=== PATIENT | male | born 1970 | race Caucasian/White ===

== ENCOUNTER 2022-05-27 17:37 | Inpatient (IN) | payer SELFPAY ==
[2022-05-27] VITALS (68 sets, daily range): BP systolic 100–138; BP diastolic 57–87; PULSE 94–110; RESP 16–22; TEMP 36.6; O2SAT 82–99; BMI 28.7
--- NOTE | 2022-05-27 18:10 | ED_ITS ---
Note pulled up in error, not my note. HPI - Weakness General Chief complaint: Weakness Stated complaint: Weakness, edema Time Seen by Provider: 05/27/22 17:59 Source: EMS Mode of arrival: EMS History of Present Illness HPI Narrative: 51-year-old male smoker and heavy drinker, sometimes as much as 0.5 gal of vodka daily presents with a chief complaint of swelling in his bilateral lower extremities that has become profoundly worse over the past week or so though has been present in some level chronically. Additionally he complains of a swollen abdomen which is becoming tender. He denies any fever or chills. He has had nausea and vomiting for the past 4 days. He denies any diarrhea, constipation or urinary issues. He states that he had been seen and evaluated at an outside facility earlier in the week and was found to have low potassium and was given potassium supplementation which she has been trying to take. He states that though he has been a drinker for many years and has gone through withdrawals even seizures in the past he is never had a swollen abdomen, has never had liver failure or a paracentesis. Related Data Home Medications Medication Instructions Recorded Confirmed No Known Home Medications 05/28/22 05/28/22 Allergies Allergy/AdvReac Type Severity Reaction Status Date / Time No Known Drug Allergies Allergy Verified 05/27/22 19:25 Review of Systems Review of Systems Narrative: GENERAL: Denies chills, fatigue, malaise, fever, sweats. HEENT: Denies sinus pain, ear pain, sore throat, difficulty swallowing, dizziness. RESPIRATORY: See HPI CARDIOVASCULAR: Denies chest pain, palpitations, orthopnea, edema, GASTROINTESTINAL see HPI : Denies dysuria, frequency, incontinence, hematuria, urinary retention. MUSCULOSKELETAL: denies weakness, joint pain, or bony pain SKIN: Denies rash, skin lesions, or other NEUROLOGIC: Denies weakness, headache, numbness, change in speech, confusion, se izures, incoordination. PSYCHIATRIC: No concerning psychosocial issues. 12 point review of systems is negative except for those stated above Patient History Medical History (Updated 05/28/22 @ 06:35 by Jin Romeo DO) Alcohol withdrawal Chronic pain syndrome Spinal stenosis TBI (traumatic brain injury) Family History (Updated 05/28/22 @ 01:59 by ASIM Best) Mother Brain tumor Father Chronic alcohol use Hx of liver transplant Staphylococcal pneumonia Social History household members: none Smoking Status: Current some day smoker alcohol intake: current Smoking Status: Current some day smoker tobacco type: cigarettes alcohol intake frequency: 3 or more drinks per day Alcohol type: hard liquor Substance Use Type: marijuana Exam Narrative Exam Narrative: GENERAL: [51] year old patient appears older than stated age. Well-developed patient, in mild distress. HEAD: Atraumatic. Normocephalic. EYES: Pupils equal round and reactive. Extraocular motions intact. No scleral icterus. No injection or drainage. ENT: Nose without bleeding, purulent drainage. Throat without erythema, tonsillar hypertrophy or exudate. Airway patent. NECK: Trachea midline. Non tender CARDIOVASCULAR: Regular rate and rhythm without murmurs, gallops, or rubs. RESPIRATORY: Clear to auscultation. Breath sounds equal bilaterally. No wheezes, rales, or rhonchi. GASTROINTESTINAL: Distended, nontender, distant bowel sounds, mild fluid wave EXTREMITIES: 2+ pitting edema bilateral lower extremities, no erythema or warmth BACK: Nontender without deformity or crepitance. No flank tenderness. NEURO: AOx3. SKIN: No rash or erythema of visible areas Initial Vital Signs Initial Vital Signs: Vital Signs Temperature 97.8 F 05/27/22 17:50 Pulse Rate 99 H 05/27/22 17:50 Respiratory Rate 20 05/27/22 17:50 Blood Pressure 122/73 05/27/22 17:50 Pulse Oximetry 99 05/27/22 17:50 Oxygen Delivery Method Room Air 05/27/22 17:50 Procedures Paracentesis Time Out Performed: Yes Indication: possible spontaneous bacterial peritonitis Procedure: diagnostic paracentesis Location: LLQ Local Anesthetic: lidocaine 2% Amount of anesthesia used (mL): 3 Bedside Ultrasound Used: yes, Ascites confirmed and location marked Preparation: sterile prep and drape Fluid: clear and sent to lab for analysis Size of Needle Used: 5 Post Procedure Exam: awake, alert, normal BP, normal HR and normal SpO2 Patient Tolerated Procedure: Well Complications: none Additional Comments: 5French Course Course Course Narrative: 51-year-old male with chronic alcohol abuse presents with increasing swelling of his lower extremities and swelling of his abdomen. He is found to have what sounds like new onset ascites in the absence of findings consistent with SBP. Is labs would suggest a relative anemia though not to the point of needing transfusion and hypokalemia which had been replaced with oral supplementation and when orders for Lasix were placed a K rider was ordered. Paracentesis with about 3-1/2 L results and no obvious abnormal findings. Patient does have less abdominal discomfort but was briefly hypoxemic requiring 2 L by nasal cannula. Patient requires hospitalization for ongoing evaluation and stabilization of his condition. Hospitalist is happy to accept patient on her service. Primary historian is patient Orders Ordered: Acetaminophen (Acetaminophen 325 Mg Tablet) 650 mg PO Q6H PRN PRN Reason: Fever/Mild Pain (1-3) Folic Acid (Folic Acid 1 Mg Tablet) 1 mg PO DAILY [facility] Hydromorphone HCl (Hydromorphone 0.5 Mg Inj) 0.5 mg IV Q2H PRN PRN Reason: Pain, Severe (7-10) Potassium Chloride 40 meq/ (Sodium Chloride) 1,020 mls @ 125 mls/hr IV CONT [facility] Sodium Chloride (Normal Saline 0.9%) 1,000 mls @ 100 mls/hr IV CONT [facility] Last Admin: 05/28/22 01:23 Dose: 125 mls/hr Documented By: CT Piperacillin Sod/Tazobactam (Sod 3.375 gm/ Sodium Chloride) 100 mls @ 25 mls/hr IV Q8H [facility] Last Admin: 05/28/22 03:51 Dose: 25 mls/hr Documented By: CT Lorazepam (Lorazepam 2 Mg/Ml Inj) 0 mg IV CIWAPRN PRN; Protocol PRN Reason: Alcohol Withdrawal Multivitamins (Multivitamin 1 Tablet) 1 tab PO DAILY [facility] Naloxone HCl (Naloxone 0.4 Mg/Ml Vial) 0.2 mg IV Q2MIN PRN PRN Reason: Opiate Reversal Nicotine (Nicotine 14 Patch) 14 mg TOP DAILY [facility] Last Admin: 05/28/22 06:31 Dose: 14 mg Documented By: CT Ondansetron HCl (Ondansetron 4 Mg Odt) 4 mg PO NOW PRN PRN Reason: Nausea And Vomiting Ondansetron HCl (Ondansetron 4 Mg/2 Ml Inj) 4 mg IV NOW PRN PRN Reason: Nausea And Vomiting Ondansetron HCl (Ondansetron 4 Mg/2 Ml Inj) 4 mg IV Q6HR PRN PRN Reason: Nausea And Vomiting Oxycodone HCl (Oxycodone Ir 5 Mg Tablet) 5 mg PO Q3H PRN PRN Reason: Pain, Moderate (4-6) Last Admin: 05/28/22 01:58 Dose: 5 mg Documented By: CT Oxycodone HCl (Oxycodone Ir 10 Mg Tablet) 10 mg PO Q3H PRN PRN Reason: Pain, Severe (7-10) Last Admin: 05/28/22 05:54 Dose: 10 mg Documented By: CT Thiamine HCl (Thiamine 100 Mg Tablet) 100 mg PO DAILY [facility] Stop: 05/30/22 09:01 Last Admin: 05/28/22 01:23 Dose: 100 mg Documented By: CT Discontinued Medications Acetaminophen (Acetaminophen 325 Mg Tablet) 650 mg PO NOW ONE Stop: 05/28/22 05:03 Last Admin: 05/28/22 06:08 Dose: 650 mg Documented By: CT Furosemide (Furosemide 40 Mg/4 Ml Vial) 40 mg IV NOW ONE Stop: 05/27/22 19:49 Last Admin: 05/27/22 20:28 Dose: 40 mg Documented By: GAR[place] Furosemide (Furosemide 40 Mg/4 Ml Vial) 40 mg IV NOW ONE Stop: 05/27/22 21:03 Last Admin: 05/27/22 21:28 Dose: 40 mg Documented By: RB Furosemide (Furosemide 20 Mg/2 Ml Vial) 20 mg IV NOW ONE Stop: 05/28/22 05:02 Ceftriaxone Sodium 2,000 mg/ (Sodium Chloride) 100 mls @ 200 mls/hr IV NOW ONE Stop: 05/27/22 19:18 Last Infusion: 05/27/22 20:25 Dose: 0 mls/hr Documented By: Admin: 05/27/22 19:27 Dose: 200 mls/hr Documented By: RB POTASSIUM CHLORIDE IN WATER (Potassium Cl 10 Meq/100 Ml Sylvia) 10 meq in 100 mls @ 100 mls/hr IV Q1H [place] Stop: 05/28/22 01:14 Last Infusion: 05/28/22 02:30 Dose: 0 mls/hr Documented By: Admin: 05/28/22 01:23 Dose: 100 mls/hr Documented By: Infusion: 05/28/22 01:23 Dose: 0 mls/hr Documented By: Infusion: 05/28/22 00:15 Dose: 0 mls/hr Documented By: Admin: 05/28/22 00:01 Dose: 100 mls/hr Documented By: Infusion: 05/28/22 00:01 Dose: 0 mls/hr Documented By: Admin: 05/27/22 22:58 Dose: 100 mls/hr Documented By: Infusion: 05/27/22 22:57 Dose: 0 mls/hr Documented By: Admin: 05/27/22 21:58 Dose: 100 mls/hr Documented By: RB Dextrose/Sodium Chloride (Dextrose 5%-0.9% Ns) 1,000 mls @ 100 mls/hr IV CONT [facility] Last Admin: 05/27/22 23:43 Dose: Not Given Documented By: RB Nicotine (Nicotine 14 Patch) 14 mg TOP DAILY [facility] Potassium Chloride (Potassium Chloride 20 Meq/15 Ml Udc) 40 meq PO NOW ONE Stop: 05/27/22 19:18 Last Admin: 05/27/22 19:28 Dose: 40 meq Documented By: RB Potassium Chloride (Potassium Chloride 20 Meq Tab) 40 meq PO NOW ONE Stop: 05/27/22 19:18 Last Admin: 05/27/22 19:28 Dose: 40 meq Documented By: RB Potassium Chloride (Potassium Chloride 20 Meq Tab) 40 meq PO NOW ONE Stop: 05/28/22 02:26 Last Admin: 05/28/22 04:10 Dose: Not Given Documented By: RAYMUNDO Potassium Chloride (Potassium Chloride 20 Meq Tab) 40 meq PO NOW ONE Stop: 05/28/22 04:16 Last Admin: 05/28/22 04:26 Dose: 40 meq Documented By: CT Vital Signs Vital signs: Vital Signs - 8 hr 05/27/22 22:35 05/27/22 22:35 05/27/22 22:40 Pulse Rate 100 H Respiratory Rate 19 Blood Pressure 102/59 L 101/59 L Pulse Oximetry 94 Oxygen Delivery Method Nasal Cannula Oxygen Flow Rate 2 05/27/22 22:40 05/27/22 22:45 05/27/22 22:45 Pulse Rate 99 H 109 H Respiratory Rate 18 Blood Pressure 107/66 Pulse Oximetry 94 94 Oxygen Delivery Method Nasal Cannula Oxygen Flow Rate 2 05/27/22 22:50 05/27/22 22:50 05/27/22 22:55 Pulse Rate 107 H Respiratory Rate Blood Pressure 105/65 104/60 Pulse Oximetry 94 Oxygen Delivery Method Oxygen Flow Rate 05/27/22 22:55 05/27/22 23:00 05/27/22 23:00 Pulse Rate 102 H 101 H Respiratory Rate 22 18 Blood Pressure 104/63 Pulse Oximetry 93 93 Oxygen Delivery Method Oxygen Flow Rate 05/27/22 23:05 05/27/22 23:05 05/27/22 23:10 Pulse Rate 100 H Respiratory Rate 16 Blood Pressure 105/61 105/63 Pulse Oximetry 94 Oxygen Delivery Method Oxygen Flow Rate 05/27/22 23:10 05/27/22 23:15 05/27/22 23:15 Pulse Rate 101 H 101 H Respiratory Rate 21 20 Blood Pressure 107/62 Pulse Oximetry 94 93 Oxygen Delivery Method Oxygen Flow Rate MDM - Weakness Lab Data 05/28/22 04:34 05/28/22 04:34 Labs: Lab Results 05/27/22 05/27/22 05/27/22 Range/Units 18:25 18:25 18:25 WBC 16.4 H (4.5-11.0) X10^3/uL RBC 1.83 L (4.5-5.9) X10^6/uL Hgb 7.1 L (13.5-17.5) g/dL Hct 21.8 L (41-53) % MCV 118.8 H (80-100) fL MCH 38.6 H (26-34) PG MCHC 32.5 (30-36) % RDW 28.5 H (11.6-14.8) % Plt Count 385 (150-400) X10^3/uL Neut % (Auto) 79.4 H (50-75) % Lymph % (Auto) 10.8 L (25-40) % [place] % (Auto) 8.2 (3-14) % Eos % (Auto) 0.3 L (2-4) % Baso % (Auto) 1.3 (0-2) % Neut # (Auto) 91449 H (4524-3501) /uL Lymph # (Auto) 1800 (0796-0714) /uL [place] # (Auto) 1300 H (0-900) /uL Eos # (Auto) 0 (0-450) /uL Baso # (Auto) 200 H (0-100) /uL RBC Morphology See below Polychromasia 1+ H Anisocytosis 2+ H Macrocytosis 2+ H PT 12.0 (10.1-12.7) SECONDS INR 1.0 (0.9-1.3) APTT 28 (26-36) SECONDS Sodium 136 L (137-145) mmol/L Potassium 2.4 L* (3.4-5.1) mmol/L Chloride 96 L (98-107) mmol/L Carbon Dioxide 37 H (22-32) mmol/L BUN 7 L (9-20) mg/dL Creatinine 0.56 L (0.66-1.25) mg/dL Estimated GFR > 60 (>60) mL/min BUN/Creatinine Ratio 12.5 (6-22) Glucose 96 (70-100) mg/dL Calcium 7.4 L (8.4-10.2) mg/dL Total Bilirubin 2.5 H (0.2-1.3) mg/dL AST 90 H (17-59) IU/L ALT 39 (<50) IU/L Alkaline Phosphatase 336 H (38-126) U/L Ammonia (9-30) umol/L Total Protein 6.7 (6.3-8.2) g/dL Albumin 2.9 L (3.5-5.0) g/dL Globulin 3.8 (1.7-4.1) g/dL Albumin/Globulin Ratio 0.8 L (1.0-2.8) Lipase 208 (23-300) U/L Fluid Color Fluid Appearance Fluid RBC /uL Fld Tot Nucleated Cell /uL Fluid Polynuclear WBCs % Fluid Mononuclear WBCs % Fluid Eosinophils Fluid Other Cells Body Fluid Clot Ethyl Alcohol ( - 10) mg/dL SARS-CoV-2 (PCR) (Negative) Blood Type Antibody Screen Crossmatch 05/27/22 05/27/22 05/27/22 Range/Units 18:25 18:25 18:25 WBC (4.5-11.0) X10^3/uL RBC (4.5-5.9) X10^6/uL Hgb (13.5-17.5) g/dL Hct (41-53) % MCV (80-100) fL MCH (26-34) PG MCHC (30-36) % RDW (11.6-14.8) % Plt Count (150-400) X10^3/uL Neut % (Auto) (50-75) % Lymph % (Auto) (25-40) % [place] % (Auto) (3-14) % Eos % (Auto) (2-4) % Baso % (Auto) (0-2) % Neut # (Auto) (9006-6675) /uL Lymph # (Auto) (7098-7243) /uL [place] # (Auto) (0-900) /uL Eos # (Auto) (0-450) /uL Baso # (Auto) (0-100) /uL RBC Morphology Polychromasia Anisocytosis Macrocytosis PT (10.1-12.7) SECONDS INR (0.9-1.3) APTT (26-36) SECONDS Sodium (137-145) mmol/L Potassium (3.4-5.1) mmol/L Chloride (98-107) mmol/L Carbon Dioxide (22-32) mmol/L BUN (9-20) mg/dL Creatinine (0.66-1.25) mg/dL Estimated GFR (>60) mL/min BUN/Creatinine Ratio (6-22) Glucose (70-100) mg/dL Calcium (8.4-10.2) mg/dL Total Bilirubin (0.2-1.3) mg/dL AST (17-59) IU/L ALT (<50) IU/L Alkaline Phosphatase (38-126) U/L Ammonia < 9 L (9-30) umol/L Total Protein (6.3-8.2) g/dL Albumin (3.5-5.0) g/dL Globulin (1.7-4.1) g/dL Albumin/Globulin Ratio (1.0-2.8) Lipase (23-300) U/L Fluid Color Fluid Appearance Fluid RBC /uL Fld Tot Nucleated Cell /uL Fluid Polynuclear WBCs % Fluid Mononuclear WBCs % Fluid Eosinophils Fluid Other Cells Body Fluid Clot Ethyl Alcohol < 10 ( - 10) mg/dL SARS-CoV-2 (PCR) Negative (Negative) Blood Type Antibody Screen Crossmatch 05/27/22 05/27/22 Range/Units 19:40 20:38 WBC (4.5-11.0) X10^3/uL RBC (4.5-5.9) X10^6/uL Hgb (13.5-17.5) g/dL Hct (41-53) % MCV (80-100) fL MCH (26-34) PG MCHC (30-36) % RDW (11.6-14.8) % Plt Count (150-400) X10^3/uL Neut % (Auto) (50-75) % Lymph % (Auto) (25-40) % [place] % (Auto) (3-14) % Eos % (Auto) (2-4) % Baso % (Auto) (0-2) % Neut # (Auto) (3062-7659) /uL Lymph # (Auto) (4508-6410) /uL [place] # (Auto) (0-900) /uL Eos # (Auto) (0-450) /uL Baso # (Auto) (0-100) /uL RBC Morphology Polychromasia Anisocytosis Macrocytosis PT (10.1-12.7) SECONDS INR (0.9-1.3) APTT (26-36) SECONDS Sodium (137-145) mmol/L Potassium (3.4-5.1) mmol/L Chloride (98-107) mmol/L Carbon Dioxide (22-32) mmol/L BUN (9-20) mg/dL Creatinine (0.66-1.25) mg/dL Estimated GFR (>60) mL/min BUN/Creatinine Ratio (6-22) Glucose (70-100) mg/dL Calcium (8.4-10.2) mg/dL Total Bilirubin (0.2-1.3) mg/dL AST (17-59) IU/L ALT (<50) IU/L Alkaline Phosphatase (38-126) U/L Ammonia (9-30) umol/L Total Protein (6.3-8.2) g/dL Albumin (3.5-5.0) g/dL Globulin (1.7-4.1) g/dL Albumin/Globulin Ratio (1.0-2.8) Lipase (23-300) U/L Fluid Color Yellow Fluid Appearance Slightly cloudy Fluid RBC 88 /uL Fld Tot Nucleated Cell 43 /uL Fluid Polynuclear WBCs 1 % Fluid Mononuclear WBCs 99 % Fluid Eosinophils Not Reportable Fluid Other Cells Not Reportable Body Fluid Clot No clots present Ethyl Alcohol ( - 10) mg/dL SARS-CoV-2 (PCR) (Negative) Blood Type A Positive Antibody Screen Negative Crossmatch See Detail Urine Dip Bedside Urine Glucose Negative Bedside Urine Bilirubin - Negative Bedside Urine Ketone - Negative Urine Specific [place] 1.010 Bedside Urine Occult Blood - Negative Bedside Urine pH 8.0 Bedside Urine Protein - Negative Bedside Urine Urobilinogen 1+ 2mg Bedside Urine Nitrite - Negative Bedside Urine Leukocytes - Negative Esterase Discharge Plan Departure Patient Disposition: Admitted As Inpatient Clinical Impression: Ascites due to alcoholic hepatitis, Anemia, Acute hypokalemia Admit Date/Time: 05/27/22 23:15 Admit Provider: Cara Reed
[2022-05-27 18:37] LABS: Add Manual Diff / Slide Review NO; Basophils Absolute Auto 200 /uL (0-100); Basophils Percent Auto 1.3 % (0-2); Eosinophils Absolute Auto 0 /uL (0-450); Eosinophils Percent Auto 0.3 % (2-4); Hematocrit 21.8 % (41-53); Hemoglobin 7.1 g/dL (13.5-17.5); Lymphocytes Absolute Auto 1800 /uL (1100-4500); Lymphocytes Percent Auto 10.8 % (25-40); Mean Corpuscular HGB Conc 32.5 % (30-36); Mean Corpuscular Hemoglobin 38.6 PG (26-34); Mean Corpuscular Volume 118.8 fL (80-100); Monocytes Absolute Auto 1300 /uL (0-900); Monocytes Percent Auto 8.2 % (3-14); Neutrophils Absolute Auto 13000 /uL (1500-7000); Neutrophils Percent Auto 79.4 % (50-75); Platelet Count 385 X10^3/uL (150-400); Red Blood Cell Count 1.83 X10^6/uL (4.5-5.9); Red Cell Distribution Width 28.5 % (11.6-14.8); White Blood Cell Count 16.4 X10^3/uL (4.5-11.0)
--- NOTE | 2022-05-27 18:43 | DI.US.S_ITS ---
PROCEDURE: US ABDOMEN LIMITED INDICATIONS: RHYS FOR PARACENTESIS TECHNIQUE: Real-time focused scanning was performed of the abdomen, with image documentation. COMPARISON: None. FINDINGS: Moderate amount of ascites is present. Appropriate cutaneous site for percutaneous access to the ascites was marked in the left lower quadrant. IMPRESSION: Moderate ascites. Dictated by: Va Carney M.D. on 05/27/2022 at 19:04 Approved by: Va Carney M.D. on 05/27/2022 at 19:05
[2022-05-27 18:45] LABS: PTT Partial Thromboplastin Tim 28 SECONDS (26-36)
[2022-05-27 18:46] LABS: Alanine Aminotransferase 39 IU/L (<50); Albumin 2.9 g/dL (3.5-5.0); Albumin Globulin Ratio 0.8 (1.0-2.8); Alkaline Phosphatase 336 U/L (38-126); Aspartate Aminotransferase 90 IU/L (17-59); BUN Creatinine Ratio 12.5 (6-22); Bilirubin Total 2.5 mg/dL (0.2-1.3); Blood Urea Nitrogen 7 mg/dL (9-20); Calcium 7.4 mg/dL (8.4-10.2); Carbon Dioxide 37 mmol/L (22-32); Chloride 96 mmol/L (98-107); Estimated Glomerular Filt Rate > 60 mL/min (>60); Globulin 3.8 g/dL (1.7-4.1); Glucose 96 mg/dL (70-100); HEMOLYSIS < 15 (0-50); Lipase 208 U/L (23-300); Sodium 136 mmol/L (137-145); Total Protein 6.7 g/dL (6.3-8.2)
[2022-05-27 18:49] LABS: Ammonia (NH3) < 9 umol/L (9-30); Ethanol (ETOH) < 10 mg/dL
[2022-05-27 19:15] LABS: COVID19 -Nasal RAPID Negative (Negative)
[2022-05-27 19:16] LABS: Potassium 2.4 mmol/L (3.4-5.1)
[2022-05-27 19:24] LABS: Macrocytosis 2+
[2022-05-27 19:25] LABS: Polychromasia 1+
[2022-05-27 19:26] LABS: Anisocytosis 2+
[2022-05-27] MEDS: cefTRIAXone 2,000 MG in SODIUM CHLORIDE 0.9% 100 ML 200 MG IV (19:27)
[2022-05-27] MEDS: POTASSIUM CHLORIDE 20 MEQ TAB 40 MEQ PO (19:28)
[2022-05-27] MEDS: POTASSIUM CHLORIDE 20 MEQ/15 ML UDC 40 MEQ PO (19:28)
--- NOTE | 2022-05-27 19:48 | DI.CT.S_ITS ---
PROCEDURE: CT ABDOMEN PELVIS W CON INDICATIONS: new onset liver failure TECHNIQUE: After the administration of IV contrast, axial sections were acquired from the lung bases to the pubic symphysis. Coronal and sagittal reformats were performed. For radiation dose reduction, the following was used: automated exposure control, adjustment of mA and/or kV according to patient size. COMPARISON: [facility], , US ABDOMEN LIMITED, 05/27/2022, 18:54. FINDINGS: Image quality: Excellent. Lung bases: There are small bilateral pleural effusions, right greater than left, with associated compressive atelectasis. Atelectasis also demonstrated inferiorly within the right middle lobe. Heart: Heart is normal in size. ABDOMEN: Liver: The liver is lobulated in contour suggestive of cirrhosis. An ill-defined wedge-shaped region of hypodensity is demonstrated within the posterior right hepatic lobe involving segments 6 and 7 along the inferior vena cava. There is also a lobulated region of hypodensity in the liver along the gallbladder fossa. A few small clustered oval hypodensities are demonstrated within segment 6 of the posterior right hepatic lobe measuring up to 1.2 cm. Gallbladder: Within normal limits without calcified gallstones. Biliary ducts: No biliary ductal dilatation. Pancreas: Unremarkable. Spleen: Normal in size. Adrenal Glands: No adrenal nodules. Kidneys and Ureters: No hydronephrosis. Stomach and Bowel: Stomach, small bowel loops, and colon are normal in caliber and wall thickness. The appendix is normal in appearance. There is a dense region of intraluminal high density in the small bowel loop in the mid abdomen. Peritoneum: There is a moderate amount of free fluid in the abdomen and pelvis. No free air. Ventral Wall: No hernia. Abdominal Nodes: No retroperitoneal or mesenteric adenopathy by size criteria. Vessels: Aorta and inferior vena cava are normal in size. PELVIS: Pelvic Organs: Unremarkable. Bladder: Unremarkable. Pelvic Nodes: No enlarged lymph nodes. Miscellaneous: No inguinal hernias are seen. Bones: Visualized osseous structures demonstrate no suspicious focal lesions. IMPRESSION: 1. Nodular hepatic contour suggestive of cirrhosis. 2. Ill-defined hypodense wedge-shaped region in the posterior right hepatic lobe as well as nonspecific hypodensities along the gallbladder fossa and inferiorly in segment 6. The findings are nonspecific and an associated hepatic mass cannot be excluded. Recommend follow-up evaluation with a liver protocol MRI when clinically feasible. 3. Moderate ascites redemonstrated in the abdomen and pelvis. 4. Small bilateral pleural effusions, right greater than left, with associated bibasilar compressive atelectasis. Dictated by: Kamran Pride M.D. on 05/27/2022 at 21:53 Approved by: Kamran Pride M.D. on 05/27/2022 at 22:14
--- NOTE | 2022-05-27 19:48 | CM.SWNOTE ---
ED DINKING MACHINE OPERATOR Note Patient is 51 y/o male who was brought in by EMS after [facility] was searching for patient due patient's need for medical attention. Patient's PCP is Santos Morgan, Patient has Medicaid Insurance. It is reported that patient resides in [place] but has been stranded in [place] due to van troubles, it was reported that patient was found in [employer] parking lot. [phone][facility] Patient thus far presents with abnormal labs and is pending admission per ED provider. This DINKING MACHINE OPERATOR is unable to formally assess patient further at this time. Plan: patient likely to admit to acute care, DCP or DINKING MACHINE OPERATOR to f/u with Anthony Corbett [facility] Director Blood [facility] and patient's cyanide case hardener regarding plan of care. Elda Fernandez, MACHINE LACER
[2022-05-27 20:26] LABS: Body Fluid Tot Nucleated Cells 43 /uL
[2022-05-27] MEDS: FUROSEMIDE 40 MG/4 ML VIAL IV ×2 (20:28→21:28)
[2022-05-27 20:33] LABS: Body Fluid Red Blood Cells 88 /uL
[2022-05-27 21:04] LABS: Body Fluid Appearance SLIGHTLY CLOUDY; Body Fluid Clotted? NO CLOTS PRESENT; Body Fluid Color YELLOW
[2022-05-27 21:05] LABS: Mononuclear WBC Body Fluid 99 %; Polynuclear WBC Body Fluid 1 %
[2022-05-27] MEDS: POTASSIUM CHLORIDE IN WATER 10 MEQ/100 ML PIGGYBACK 100 MEQ IV ×2 (21:58→22:58)
[2022-05-28] VITALS (20 sets, daily range): BP systolic 101–114; BP diastolic 60–79; PULSE 85–106; RESP 16–24; TEMP 36.9–37.6; O2SAT 92–99; BMI 24.5
[2022-05-28] MEDS: POTASSIUM CHLORIDE IN WATER 10 MEQ/100 ML PIGGYBACK 100 MEQ IV ×2 (00:01→01:23)
--- NOTE | 2022-05-28 00:43 | P.HP_ITS ---
History of Present Illness History of Present Illness Date Patient Seen: 05/28/22 Time Patient Seen: 00:43 Chief complaint: LE weakness, swelling, feeling poorly Narrative: Eros Beavers is a 51-year-old male smoker and heavy drinker, states previously as much as 0.5 gal of vodka daily presented to the ED with complaints of swelling in his bilateral lower extremities that has become profoundly worse over the past week with difficulty walking.? Additionally he complains of a swollen abdomen which is becoming tender.? He states he has hot and cold spells w/a runny nose and productive cough w/thick green mucus.? He has had nausea and vomiting for the past 4 days.? He states he has new onset urinary and bowel incontinence and endorses hematuria.? He states that he had been seen and evaluated at an outside clinic earlier in the week and was found to have low potassium and was given potassium supplementation which he has been trying to take.? He states that though he has been a drinker for many years and has gone through withdrawals even seizures in the past he is never had a swollen abdomen, denies having liver failure or a paracentesis. In the ED, they performed a paracentesis and drained off 3 liters. Abdominal ultrasound reported moderate amount of ascites. CT of the abdomen and pelvis indicated 1, nodular hepatic contour suggestive of cirrhosis; ill-defined hypodense wedge-shaped region in the posterior right hepatic lobe... Associated hepatic mass can not be excluded recommending follow-up evaluation with a liver protocol MRI when feasible, moderate amount of ascites and small bilateral pleural effusions right greater than left with associated bibasilar compressive atelectasis. He is afebrile, blood pressure 108/65 heart rate 106 respiratory rate 18 oxygen saturation of 93% on 2 L he weighs 77.5 kg with a BMI of 24.5. He has an elevated white count of 16.4 hemoglobin is 7.1 hematocrit 21.8 normal platelet count he is a left shift he has not had normal smear, PT INR is normal he initially presented with a potassium of 2.4 which was repleted in the emergency department bilirubin 2.5 AST 90 ALT 39 alk-phos 336 normal ammonia level albumin 2.9 lipase is normal alcohol level was within normal limits COVID- 19 PCR is negative and acute hepatitis panel is pending. Patient's blood type is A positive with negative antibodies. Patient History Medical History (Updated 05/28/22 @ 02:01 by ASIM Best) Alcohol withdrawal Chronic pain syndrome Spinal stenosis TBI (traumatic brain injury) Family & Social History Family History (Updated 05/28/22 @ 01:59 by ASIM Best) Mother Brain tumor Father Chronic alcohol use Hx of liver transplant Staphylococcal pneumonia Safety & Behavioral: Feels Safe in Current Yes Environment Been Physically Hurt or No Threatened By a Person Tobacco & Substance use: Smoking Status Current some day smoker alcohol intake frequency 3 or more drinks per day Substance Use Type marijuana Meds Home Medications and Allergies Allergies Allergy/AdvReac Type Severity Reaction Status Date / Time No Known Drug Allergies Allergy Verified 05/27/22 19:25 Review of Systems Review of Systems ROS: Yes All systems reviewed with the patient and are negative except as otherwise documented Exam Vital Signs (past 8 hours): - 05/27/22 17:50 05/27/22 18:13 05/27/22 18:30 Temperature 97.8 F Pulse Rate 99 H 100 H 96 H Respiratory Rate 20 Blood Pressure 122/73 Pulse Oximetry 99 97 96 Oxygen Delivery Method Room Air Oxygen Flow Rate 05/27/22 18:44 05/27/22 18:44 05/27/22 18:45 Temperature Pulse Rate 98 H Respiratory Rate Blood Pressure 116/78 121/78 Pulse Oximetry 96 Oxygen Delivery Method Oxygen Flow Rate 05/27/22 18:45 05/27/22 18:50 05/27/22 18:55 Temperature Pulse Rate 94 H 97 H 99 H Respiratory Rate Blood Pressure Pulse Oximetry 96 96 96 Oxygen Delivery Method Oxygen Flow Rate 05/27/22 19:00 05/27/22 19:05 05/27/22 19:10 Temperature Pulse Rate 97 H 99 H 99 H Respiratory Rate Blood Pressure Pulse Oximetry 95 97 95 Oxygen Delivery Method Oxygen Flow Rate 05/27/22 19:15 05/27/22 19:20 05/27/22 19:25 Temperature Pulse Rate 100 H 99 H 99 H Respiratory Rate Blood Pressure Pulse Oximetry 92 92 89 L Oxygen Delivery Method Oxygen Flow Rate 05/27/22 19:28 05/27/22 19:28 05/27/22 19:30 Temperature Pulse Rate 101 H Respiratory Rate Blood Pressure 133/76 133/67 Pulse Oximetry 90 L Oxygen Delivery Method Oxygen Flow Rate 05/27/22 19:30 05/27/22 19:35 05/27/22 19:40 Temperature Pulse Rate 103 H 100 H 101 H Respiratory Rate Blood Pressure Pulse Oximetry 91 93 91 Oxygen Delivery Method Oxygen Flow Rate 05/27/22 19:45 05/27/22 19:45 05/27/22 19:50 Temperature Pulse Rate 100 H 101 H Respiratory Rate Blood Pressure 136/76 Pulse Oximetry 92 90 L Oxygen Delivery Method Room Air Oxygen Flow Rate 05/27/22 19:55 05/27/22 19:55 05/27/22 20:00 Temperature Pulse Rate 102 H Respiratory Rate Blood Pressure 127/67 132/72 Pulse Oximetry 90 L Oxygen Delivery Method Room Air Oxygen Flow Rate 05/27/22 20:00 05/27/22 20:05 05/27/22 20:05 Temperature Pulse Rate 96 H 95 H Respiratory Rate Blood Pressure 124/73 Pulse Oximetry 96 95 Oxygen Delivery Method Nasal Cannula Nasal Cannula Oxygen Flow Rate 2 2 05/27/22 20:10 05/27/22 20:10 05/27/22 20:15 Temperature Pulse Rate 98 H Respiratory Rate Blood Pressure 125/74 123/67 Pulse Oximetry 97 Oxygen Delivery Method Nasal Cannula Oxygen Flow Rate 2 05/27/22 20:15 05/27/22 20:20 05/27/22 20:21 Temperature Pulse Rate 97 H 99 H Respiratory Rate Blood Pressure 122/84 Pulse Oximetry 96 96 Oxygen Delivery Method Nasal Cannula Nasal Cannula Oxygen Flow Rate 2 2 05/27/22 20:21 05/27/22 20:25 05/27/22 20:25 Temperature Pulse Rate 99 H 105 H Respiratory Rate Blood Pressure 126/69 Pulse Oximetry 96 96 Oxygen Delivery Method Nasal Cannula Nasal Cannula Oxygen Flow Rate 2 2 05/27/22 20:30 05/27/22 20:30 05/27/22 20:35 Temperature Pulse Rate 99 H 102 H Respiratory Rate Blood Pressure 128/64 Pulse Oximetry 96 98 Oxygen Delivery Method Nasal Cannula Nasal Cannula Oxygen Flow Rate 2 2 05/27/22 20:40 05/27/22 20:45 05/27/22 20:50 Temperature Pulse Rate 102 H 110 H 103 H Respiratory Rate Blood Pressure Pulse Oximetry 97 91 Oxygen Delivery Method Nasal Cannula Nasal Cannula Oxygen Flow Rate 2 2 05/27/22 20:55 05/27/22 21:00 05/27/22 21:05 Temperature Pulse Rate 107 H 101 H 108 H Respiratory Rate Blood Pressure Pulse Oximetry 92 91 Oxygen Delivery Method Nasal Cannula Nasal Cannula Oxygen Flow Rate 2 2 05/27/22 21:10 05/27/22 21:10 05/27/22 21:15 Temperature Pulse Rate 104 H 104 H Respiratory Rate Blood Pressure 113/63 Pulse Oximetry 95 96 Oxygen Delivery Method Nasal Cannula Nasal Cannula Oxygen Flow Rate 2 2 05/27/22 21:25 05/27/22 21:30 05/27/22 21:30 Temperature Pulse Rate 103 H Respiratory Rate Blood Pressure 110/69 Pulse Oximetry 82 L 96 Oxygen Delivery Method Room Air Nasal Cannula Oxygen Flow Rate 0 2 05/27/22 21:35 05/27/22 21:35 05/27/22 21:40 Temperature Pulse Rate 101 H Respiratory Rate Blood Pressure 111/71 138/87 Pulse Oximetry 97 Oxygen Delivery Method Nasal Cannula Oxygen Flow Rate 2 05/27/22 21:40 05/27/22 21:45 05/27/22 21:45 Temperature Pulse Rate 104 H 102 H Respiratory Rate Blood Pressure 112/59 L Pulse Oximetry 95 96 Oxygen Delivery Method Nasal Cannula Nasal Cannula Oxygen Flow Rate 2 2 05/27/22 21:50 05/27/22 21:50 05/27/22 21:55 Temperature Pulse Rate 105 H Respiratory Rate Blood Pressure 108/58 L 112/67 Pulse Oximetry 94 Oxygen Delivery Method Nasal Cannula Oxygen Flow Rate 2 05/27/22 21:55 05/27/22 22:00 05/27/22 22:00 Temperature Pulse Rate 100 H 97 H Respiratory Rate Blood Pressure 115/66 Pulse Oximetry 96 Oxygen Delivery Method Nasal Cannula Oxygen Flow Rate 2 05/27/22 22:05 05/27/22 22:05 05/27/22 22:10 Temperature Pulse Rate 101 H Respiratory Rate Blood Pressure 110/63 106/60 Pulse Oximetry 97 Oxygen Delivery Method Nasal Cannula Oxygen Flow Rate 2 05/27/22 22:10 05/27/22 22:15 05/27/22 22:15 Temperature Pulse Rate 99 H 102 H Respiratory Rate Blood Pressure 104/61 Pulse Oximetry 96 96 Oxygen Delivery Method Nasal Cannula Nasal Cannula Oxygen Flow Rate 2 2 05/27/22 22:20 05/27/22 22:20 05/27/22 22:25 Temperature Pulse Rate 102 H Respiratory Rate 19 Blood Pressure 107/62 100/61 Pulse Oximetry 94 Oxygen Delivery Method Nasal Cannula Oxygen Flow Rate 2 05/27/22 22:25 05/27/22 22:30 05/27/22 22:30 Temperature Pulse Rate 99 H 100 H Respiratory Rate 18 19 Blood Pressure 104/58 L Pulse Oximetry 94 94 Oxygen Delivery Method Nasal Cannula Nasal Cannula Oxygen Flow Rate 2 2 05/27/22 22:35 05/27/22 22:35 05/27/22 22:40 Temperature Pulse Rate 100 H Respiratory Rate 19 Blood Pressure 102/59 L 101/59 L Pulse Oximetry 94 Oxygen Delivery Method Nasal Cannula Oxygen Flow Rate 2 05/27/22 22:40 05/27/22 22:45 05/27/22 22:45 Temperature Pulse Rate 99 H 109 H Respiratory Rate 18 Blood Pressure 107/66 Pulse Oximetry 94 94 Oxygen Delivery Method Nasal Cannula Oxygen Flow Rate 2 05/27/22 22:50 05/27/22 22:50 05/27/22 22:55 Temperature Pulse Rate 107 H Respiratory Rate Blood Pressure 105/65 104/60 Pulse Oximetry 94 Oxygen Delivery Method Oxygen Flow Rate 05/27/22 22:55 05/27/22 23:00 05/27/22 23:00 Temperature Pulse Rate 102 H 101 H Respiratory Rate 22 18 Blood Pressure 104/63 Pulse Oximetry 93 93 Oxygen Delivery Method Oxygen Flow Rate 05/27/22 23:05 05/27/22 23:05 05/27/22 23:10 Temperature Pulse Rate 100 H Respiratory Rate 16 Blood Pressure 105/61 105/63 Pulse Oximetry 94 Oxygen Delivery Method Oxygen Flow Rate 05/27/22 23:10 05/27/22 23:15 05/27/22 23:15 Temperature Pulse Rate 101 H 101 H Respiratory Rate 21 20 Blood Pressure 107/62 Pulse Oximetry 94 93 Oxygen Delivery Method Oxygen Flow Rate 05/27/22 23:20 05/27/22 23:20 05/27/22 23:25 Temperature Pulse Rate 100 H Respiratory Rate 18 Blood Pressure 105/62 106/62 Pulse Oximetry 94 Oxygen Delivery Method Oxygen Flow Rate 05/27/22 23:25 05/27/22 23:30 05/27/22 23:30 Temperature Pulse Rate 100 H 100 H Respiratory Rate 19 18 Blood Pressure 102/57 L Pulse Oximetry 95 94 Oxygen Delivery Method Nasal Cannula Oxygen Flow Rate 2 05/27/22 23:35 05/27/22 23:35 05/27/22 23:40 Temperature Pulse Rate 101 H Respiratory Rate 19 Blood Pressure 103/58 L 107/60 Pulse Oximetry 95 Oxygen Delivery Method Nasal Cannula Oxygen Flow Rate 2 05/27/22 23:40 05/27/22 23:45 05/27/22 23:45 Temperature Pulse Rate 105 H 100 H Respiratory Rate 19 17 Blood Pressure 103/57 L Pulse Oximetry 94 94 Oxygen Delivery Method Nasal Cannula Nasal Cannula Oxygen Flow Rate 2 2 05/27/22 23:50 05/27/22 23:50 05/27/22 23:55 Temperature Pulse Rate 100 H Respiratory Rate 17 Blood Pressure 104/58 L 108/60 Pulse Oximetry 95 Oxygen Delivery Method Nasal Cannula Oxygen Flow Rate 2 05/27/22 23:55 05/28/22 00:00 05/28/22 00:00 Temperature Pulse Rate 100 H 101 H Respiratory Rate 18 24 Blood Pressure 101/60 Pulse Oximetry 95 95 Oxygen Delivery Method Nasal Cannula Nasal Cannula Oxygen Flow Rate 2 2 05/28/22 00:05 05/28/22 00:05 05/28/22 00:10 Temperature Pulse Rate 100 H Respiratory Rate 19 Blood Pressure 108/63 103/60 Pulse Oximetry 95 Oxygen Delivery Method Nasal Cannula Oxygen Flow Rate 2 05/28/22 00:10 05/28/22 00:15 05/28/22 00:15 Temperature Pulse Rate 100 H 103 H Respiratory Rate 20 18 Blood Pressure 101/61 Pulse Oximetry 95 94 Oxygen Delivery Method Nasal Cannula Nasal Cannula Oxygen Flow Rate 2 2 05/28/22 00:39 Temperature 98.9 F Pulse Rate 106 H Respiratory Rate 18 Blood Pressure 108/65 Pulse Oximetry 92 Oxygen Delivery Method Oxygen Flow Rate 2 Oxygen Delivery Method Nasal Cannula Oxygen Flow Rate 2 Narrative Exam Narrative: Gen: Alert, oriented, chronically ill appearing 51 y.o. male, NAD HEENT: normocephalic, atraumatic, conjunctiva clear, scleral icterus, oral mucosa pink and moist Neck: supple, full ROM, no JVD, trachea is midline Resp: Lungs CTA, non-labored breathing CV: RRR, no murmur or rubs Abd: soft, non-tender, normoactive BTs Skin: jaundiced, dry and intact Neuro: Alert and oriented X 4 w/no focal deficits. Speech clear and coherent. Extremities: bilateral pitting edema, moves all 4 extremities, is ambulatory, negative Britney?s sign Psyche: normal mood and affect. Objective Labs 05/27/22 18:25 05/27/22 18:25 Labs: Laboratory Results - last 24 hr 05/27/22 05/27/22 05/27/22 18:25 18:25 18:25 WBC 16.4 H RBC 1.83 L Hgb 7.1 L Hct 21.8 L MCV 118.8 H MCH 38.6 H MCHC 32.5 RDW 28.5 H Plt Count 385 Neut % (Auto) 79.4 H Lymph % (Auto) 10.8 L Crenshaw % (Auto) 8.2 Eos % (Auto) 0.3 L Baso % (Auto) 1.3 Neut # (Auto) 46890 H Lymph # (Auto) 1800 [place]shaw # (Auto) 1300 H Eos # (Auto) 0 Baso # (Auto) 200 H RBC Morphology See below Polychromasia 1+ H Anisocytosis 2+ H Macrocytosis 2+ H PT 12.0 INR 1.0 APTT 28 Sodium 136 L Potassium 2.4 L* Chloride 96 L Carbon Dioxide 37 H BUN 7 L Creatinine 0.56 L Estimated GFR > 60 BUN/Creatinine Ratio 12.5 Glucose 96 Calcium 7.4 L Total Bilirubin 2.5 H AST 90 H ALT 39 Alkaline Phosphatase 336 H Ammonia Total Protein 6.7 Albumin 2.9 L Globulin 3.8 Albumin/Globulin Ratio 0.8 L Lipase 208 Fluid Color Fluid Appearance Fluid RBC Fld Tot Nucleated Cell Fluid Polynuclear WBCs Fluid Mononuclear WBCs Fluid Eosinophils Fluid Other Cells Body Fluid Clot Ethyl Alcohol SARS-CoV-2 (PCR) Blood Type Antibody Screen 05/27/22 05/27/22 05/27/22 18:25 18:25 18:25 WBC RBC Hgb Hct MCV MCH MCHC RDW Plt Count Neut % (Auto) Lymph % (Auto) Crenshaw % (Auto) Eos % (Auto) Baso % (Auto) Neut # (Auto) Lymph # (Auto) Crenshaw # (Auto) Eos # (Auto) Baso # (Auto) RBC Morphology Polychromasia Anisocytosis Macrocytosis PT INR APTT Sodium Potassium Chloride Carbon Dioxide BUN Creatinine Estimated GFR BUN/Creatinine Ratio Glucose Calcium Total Bilirubin AST ALT Alkaline Phosphatase Ammonia < 9 L Total Protein Albumin Globulin Albumin/Globulin Ratio Lipase Fluid Color Fluid Appearance Fluid RBC Fld Tot Nucleated Cell Fluid Polynuclear WBCs Fluid Mononuclear WBCs Fluid Eosinophils Fluid Other Cells Body Fluid Clot Ethyl Alcohol < 10 SARS-CoV-2 (PCR) Negative Blood Type Antibody Screen 05/27/22 05/27/22 19:40 20:38 WBC RBC Hgb Hct MCV MCH MCHC RDW Plt Count Neut % (Auto) Lymph % (Auto) Crenshaw % (Auto) Eos % (Auto) Baso % (Auto) Neut # (Auto) Lymph # (Auto) Crenshaw # (Auto) Eos # (Auto) Baso # (Auto) RBC Morphology Polychromasia Anisocytosis Macrocytosis PT INR APTT Sodium Potassium Chloride Carbon Dioxide BUN Creatinine Estimated GFR BUN/Creatinine Ratio Glucose Calcium Total Bilirubin AST ALT Alkaline Phosphatase Ammonia Total Protein Albumin Globulin Albumin/Globulin Ratio Lipase Fluid Color Yellow Fluid Appearance Slightly cloudy Fluid RBC 88 Fld Tot Nucleated Cell 43 Fluid Polynuclear WBCs 1 Fluid Mononuclear WBCs 99 Fluid Eosinophils Not Reportable Fluid Other Cells Not Reportable Body Fluid Clot No clots present Ethyl Alcohol SARS-CoV-2 (PCR) Blood Type A Positive Antibody Screen Negative Assessment & Plan Assessment & Plan narrative: Eros Beavers will be admitted for acute liver failure and a probable pneumonia. Acute liver failure, present on admission -MELD-NA score is 13 -Hep panel pending, -PT/INR is normal Acute anemia, present on admission -Admission H and H was 7.1 and 21.8 respectively -Monitor H and H for need for transfusion Acute hypokalemia, present on admission -Potassium was 2.4 and was repeated in the emergency department and appeared to receive a total of 120 mEq of potassium -repeat potassium is 2.6, will replete -likely due to aggressive diuresis and poor nutritional state Presumed infectious process, acute and present on admission -he was given a single dose of IV ceftriaxone and will be initiated on IV Zosyn History of alcohol withdrawal, currently not in withdrawal -CIWA protocol -he started on thiamine, folic acid and a multivitamin Tobacco dependence, present on admission -patient states he smokes a pack of cigarettes per day and will receive transdermal Nicoderm patch 14 mcg change daily Other independent historians: none Discussion of results, plan of care with independent HCP/other: ED provider Reviewed outside records: ED note VTE Prophylaxis: Wells risk score 0 X Bilateral SCDs Pharmacological VTE prophylaxis contraindicated in the setting of acute anemia. Patient is admitted to the inpatient service due to the severity of disease, r isks of further disease progression and this stay is expected to exceed 2 midnights. FEN: IV fluids: NS at 100 ml/hour, diet: general, labs: CBC, C/BMP, liver enzymes, Mag, PT/INR Consultants None Social determinants of health: chronic alcohol use, isolated living situation w/difficult access to rehab resources Dispo: unknown at this time Code status: Full code as discussed with the patient who declines to name a surrogate or POA. [X] I have utilized all available immediate resources to obtain, update, or review of the patient's current medications VTE Deep Vein Thrombosis/Pulmonary Embolism Present on Admission: No MIPS - Admit I confirm the patient?s Advance Care Plan is present, Code status is documented and is in patient?s record: Yes MIPS - DC The patient has current or prior documentation of left ventricular ejection fraction (LVEF) less than 40%, or moderate or severely depressed left ventricular systolic function.: No COVID-19 COVID-19 status: Negative Result date/Date tested (Pos, Neg/Pending): 05/28/22
[2022-05-28] MEDS: THIAMINE 100 MG TABLET PO ×2 (01:23→08:13)
[2022-05-28] MEDS: SODIUM CHLORIDE 0.9% 1,000 ML 125 ML IV (01:23)
[2022-05-28] MEDS: OXYCODONE IR 5 MG TABLET PO (01:58)
[2022-05-28 02:12] LABS: BUN Creatinine Ratio 8.3 (6-22); Blood Urea Nitrogen 5 mg/dL (9-20); Calcium 6.9 mg/dL (8.4-10.2); Carbon Dioxide 35 mmol/L (22-32); Chloride 97 mmol/L (98-107); Estimated Glomerular Filt Rate > 60 mL/min (>60); Glucose 148 mg/dL (70-100); HEMOLYSIS < 15 (0-50); Sodium 136 mmol/L (137-145)
[2022-05-28 02:15] LABS: Potassium 2.6 mmol/L (3.4-5.1)
[2022-05-28] MEDS: PIPERACILLIN/TAZO 3.375 GM in SODIUM CHLORIDE 0.9% 100 ML IV ×3 (03:51→17:27)
[2022-05-28 04:18] LABS: Appearance Urine UA CLEAR; Bilirubin Urine UA NEGATIVE (NEGATIVE); Color Urine UA YELLOW; Glucose Urine UA NEGATIVE (Negative); Ketones Urine UA NEGATIVE (NEGATIVE); Leukocyte Esterase Urine UA NEGATIVE (NEGATIVE); Nitrite Urine UA NEGATIVE (Negative); Occult Blood Urine UA NEGATIVE (Negative); Protein Urine UA NEGATIVE (Negative); pH Urine UA 8.5 (4.5-8.0)
[2022-05-28 04:19] LABS: Bacteria Urine None Seen; Culture Indicated Urine Cult Not Indicated; RBC Urine None Seen (0-5/HPF); Urine Comments Microscopic Normal; WBC Urine None Seen (0-5/HPF)
[2022-05-28] MEDS: POTASSIUM CHLORIDE 20 MEQ TAB 40 MEQ PO ×2 (04:26→11:13)
[2022-05-28 04:50] LABS: INR 1.1 (0.9-1.3); Prothrombin Time 13.1 SECONDS (10.1-12.7)
[2022-05-28 04:52] LABS: Add Manual Diff / Slide Review NO; Basophils Absolute Auto 100 /uL (0-100); Basophils Percent Auto 0.8 % (0-2); Eosinophils Absolute Auto 100 /uL (0-450); Eosinophils Percent Auto 0.5 % (2-4); Lymphocytes Absolute Auto 1500 /uL (1100-4500); Lymphocytes Percent Auto 10.8 % (25-40); Mean Corpuscular HGB Conc 32.3 % (30-36); Mean Corpuscular Hemoglobin 38.5 PG (26-34); Mean Corpuscular Volume 119.1 fL (80-100); Monocytes Absolute Auto 1300 /uL (0-900); Monocytes Percent Auto 9.4 % (3-14); Neutrophils Absolute Auto 11200 /uL (1500-7000); Neutrophils Percent Auto 78.5 % (50-75); Platelet Count 328 X10^3/uL (150-400); Red Blood Cell Count 1.52 X10^6/uL (4.5-5.9); Red Cell Distribution Width 28.2 % (11.6-14.8); White Blood Cell Count 14.3 X10^3/uL (4.5-11.0)
[2022-05-28 04:54] LABS: Alanine Aminotransferase 32 IU/L (<50); Albumin 2.2 g/dL (3.5-5.0); Albumin Globulin Ratio 0.7 (1.0-2.8); Alkaline Phosphatase 244 U/L (38-126); Aspartate Aminotransferase 71 IU/L (17-59); Bilirubin Unconjugated 0.3 mg/dL (0.0-1.1); Globulin 3.2 g/dL (1.7-4.1); HEMOLYSIS < 15 (0-50); Total Protein 5.4 g/dL (6.3-8.2)
[2022-05-28 04:55] LABS: BUN Creatinine Ratio 10.4 (6-22); Blood Urea Nitrogen 5 mg/dL (9-20); Calcium 6.6 mg/dL (8.4-10.2); Carbon Dioxide 32 mmol/L (22-32); Chloride 97 mmol/L (98-107); Estimated Glomerular Filt Rate > 60 mL/min (>60); Glucose 110 mg/dL (70-100); HEMOLYSIS < 15 (0-50); Magnesium 1.5 mg/dL (1.6-2.3); Potassium 2.8 mmol/L (3.4-5.1); Sodium 133 mmol/L (137-145)
[2022-05-28 04:58] LABS: Hematocrit 18.1 % (41-53); Hemoglobin 5.9 g/dL (13.5-17.5)
[2022-05-28 05:54] LABS: Anisocytosis 3+; Macrocytosis 2+; Polychromasia 1+
[2022-05-28] MEDS: OXYCODONE IR 10 MG TABLET PO ×3 (05:54→19:50)
[2022-05-28] MEDS: ACETAMINOPHEN 325 MG TABLET 650 MG PO ×2 (06:08→19:51)
[2022-05-28] MEDS: NICOTINE 14 PATCH 14 MG TOP (06:31)
[2022-05-28] MEDS: LORazepam 2 MG/ML INJ IV (06:43)
[2022-05-28] MEDS: chlordiazePOXIDE 25 MG CAPSULE 50 MG PO ×3 (08:13→22:39)
[2022-05-28] MEDS: PANTOPRAZOLE 40 MG VIAL IV ×2 (08:13→19:59)
[2022-05-28] MEDS: FOLIC ACID 1 MG TABLET PO (08:13)
[2022-05-28] MEDS: FUROSEMIDE 20 MG/2 ML VIAL IV (08:13)
[2022-05-28] MEDS: MULTIVITAMIN 1 TABLET 1 TAB PO (08:13)
[2022-05-28] MEDS: MAGNESIUM CHLORIDE 64 MG TABLET 128 MG PO (11:13)
--- NOTE | 2022-05-28 11:48 | DIET.CONS ---
Addendum entered by Nery Feliciano 05/28/22 13:44: RD agrees with design engineering intern note below. Original Note: Dietary Consultation Note Admission Date: 05/27/2022 23:15 Assessment: 51 y/o M admitted for acute liver failure and probable pneumonia. RD assessment based on MNA screening. Pt with MNA 7. Met with pt bedside to discuss current dietary intake. Pt reports eating a solid meal ~11 times in past 5 months such as potato soup and meatballs with vegetables. Otherwise diet is mostly liquid, consisting of ETOH and juice. Has ONS at home but not consuming. Diet recall: B: rarely eats. L: nothing D: vegetable or orange juice, ETOH. Fluid: when asked about how much he consumes, pt reports, ?not enough.? NFPE: prominent acromion process, boxed shoulders, and mild interosseous muscle and temporal wasting (moderate to severe PCM). Barriers: lives in [facility] where he reports cannot currently cook d/t propane tank issues. Additionally, he reports running out of water yesterday and feeling too sick to get more (weaker, SOB). Pt is a smoker and heavy drinker. Per hospitalist note, pt drinking as much as 0.5 gal vodka daily, has swelling in bilateral lower extremities, and a swollen tender abdomen. Paracentesis was performed which drained off 3 L. Pts abdomen/pelvis CT shows nodular hepatic contour suggestive of cirrhosis. Liver enzymes AST 90 H, ALT 39 (05/27/22). Pt notes he is on SNAP benefits. Received $282/month during pandemic, however, since emergency relief discontinuation, pt now only receives $23/month. Not currently utilizing food pantries. Admission wt of 90kg likely r/t fluids. Most recent wt 77.5kg. Ht: 177.8 cm Wt: 77.5 kg BMI: 24.5 UBW: 74 kg (pt reported) Last BM: 05/25/22 (05/28/22 00:52) MNA: 7 Weston Score: 18 Diet: 05/27/22 Breakfast Heart Healthy Diet Diet Modifications: 05/27/22 17:48 NPO Diet Diet Modifications: NPO Type: Strict Labs: RBC 1.52 X10^6/uL (4.5-5.9) L 05/28/22 04:34 Hgb 5.9 g/dL (13.5-17.5) L* 05/28/22 04:34 Hct 18.1 % (41-53) L* 05/28/22 04:34 Creatinine 0.48 mg/dL (0.66-1.25) L 05/28/22 04:34 Nutrition Diagnosis: Acute on chronic moderate protein calorie malnutrition r/t excessive ETOH intake and food insecurity aeb <50% EER > 1 month, significant fluid accumulation of 3 L with paracentesis and notable ascites, NFPE showing mild-moderate muscle and fat loss as determined by prominent acromion process, boxed shoulders, with interosseous muscle and temporal wasting. Interventions: - Discussed the importance of increasing protein intake to maintain lean body mass - Kitchen to send ONS BID - Provided pt with food pantry locations in surrounding area - Encouraged ONS consumption after discharge prn to meet kcal and pro needs EER: 4443-3210 kcal (25-28 kcal/kg per BMI), 85-100 g protein (1.1-1.3 g/kg per PCM) Monitoring/Evaluations: consult prn. Electronically Signed by: Bethany Scott 05/28/22 11:48 Clinical Dietitian [address] [id number]
[2022-05-28 18:09] LABS: Add Manual Diff / Slide Review NO; Basophils Absolute Auto 100 /uL (0-100); Basophils Percent Auto 0.4 % (0-2); Eosinophils Absolute Auto 100 /uL (0-450); Eosinophils Percent Auto 0.9 % (2-4); Hematocrit 21.6 % (41-53); Hemoglobin 7.2 g/dL (13.5-17.5); Lymphocytes Absolute Auto 2300 /uL (1100-4500); Lymphocytes Percent Auto 14.4 % (25-40); Mean Corpuscular HGB Conc 33.2 % (30-36); Mean Corpuscular Hemoglobin 37.7 PG (26-34); Mean Corpuscular Volume 113.6 fL (80-100); Monocytes Absolute Auto 1400 /uL (0-900); Monocytes Percent Auto 9.2 % (3-14); Neutrophils Absolute Auto 11900 /uL (1500-7000); Neutrophils Percent Auto 75.1 % (50-75); Platelet Count 339 X10^3/uL (150-400); Red Blood Cell Count 1.91 X10^6/uL (4.5-5.9); Red Cell Distribution Width 28.7 % (11.6-14.8); White Blood Cell Count 15.8 X10^3/uL (4.5-11.0)
[2022-05-28 18:28] LABS: Blood Urea Nitrogen 6 mg/dL (9-20); Calcium 6.6 mg/dL (8.4-10.2); Carbon Dioxide 30 mmol/L (22-32); Chloride 101 mmol/L (98-107); Estimated Glomerular Filt Rate > 60 mL/min (>60); Glucose 132 mg/dL (70-100); HEMOLYSIS < 15 (0-50); Potassium 3.4 mmol/L (3.4-5.1); Sodium 135 mmol/L (137-145)
[2022-05-28 18:32] LABS: Anisocytosis 3+; Macrocytosis 2+
[2022-05-28 18:33] LABS: Polychromasia 1+
[2022-05-28] MEDS: SODIUM CHLORIDE 0.9% FLUSH 10 ML IV (20:07)
[2022-05-29] VITALS (13 sets, daily range): BP systolic 113–127; BP diastolic 75–84; PULSE 81–97; RESP 17–19; TEMP 36.6–37.2; O2SAT 90–99
[2022-05-29] MEDS: PIPERACILLIN/TAZO 3.375 GM in SODIUM CHLORIDE 0.9% 100 ML IV ×2 (03:06→10:05)
[2022-05-29] MEDS: OXYCODONE IR 10 MG TABLET PO ×5 (04:25→23:45)
[2022-05-29] MEDS: ACETAMINOPHEN 325 MG TABLET 650 MG PO ×2 (04:26→20:06)
[2022-05-29 04:46] LABS: Prothrombin Time 11.3 SECONDS (10.1-12.7)
[2022-05-29 04:47] LABS: Hematocrit 23.9 % (41-53); Hemoglobin 7.9 g/dL (13.5-17.5); Mean Corpuscular HGB Conc 33.3 % (30-36); Mean Corpuscular Hemoglobin 37.9 PG (26-34); Platelet Count 361 X10^3/uL (150-400); Red Blood Cell Count 2.09 X10^6/uL (4.5-5.9); Red Cell Distribution Width 28.8 % (11.6-14.8); White Blood Cell Count 15.2 X10^3/uL (4.5-11.0)
[2022-05-29 04:51] LABS: Add Manual Diff / Slide Review YES
[2022-05-29 04:55] LABS: Alanine Aminotransferase 30 IU/L (<50); Albumin 2.5 g/dL (3.5-5.0); Albumin Globulin Ratio 0.7 (1.0-2.8); Alkaline Phosphatase 235 U/L (38-126); Aspartate Aminotransferase 60 IU/L (17-59); Bilirubin Total 1.9 mg/dL (0.2-1.3); Bilirubin Unconjugated 0.3 mg/dL (0.0-1.1); Globulin 3.5 g/dL (1.7-4.1); HEMOLYSIS < 15 (0-50)
[2022-05-29 04:57] LABS: BUN Creatinine Ratio 10.7 (6-22); Blood Urea Nitrogen 6 mg/dL (9-20); Calcium 7.1 mg/dL (8.4-10.2); Carbon Dioxide 31 mmol/L (22-32); Chloride 104 mmol/L (98-107); Estimated Glomerular Filt Rate > 60 mL/min (>60); Glucose 106 mg/dL (70-100); HEMOLYSIS < 15 (0-50); Magnesium 1.6 mg/dL (1.6-2.3); Potassium 3.4 mmol/L (3.4-5.1); Sodium 137 mmol/L (137-145)
[2022-05-29 05:32] LABS: Anisocytosis 3+; Neutrophils Absolute Manual 11248 /uL (3000-5900); Polychromasia 2+; Total Cells Counted 100
[2022-05-29 05:33] LABS: Macrocytosis 2+
[2022-05-29] MEDS: PANTOPRAZOLE 40 MG VIAL IV ×2 (08:25→20:06)
[2022-05-29] MEDS: NICOTINE 14 PATCH 14 MG TOP (08:26)
[2022-05-29] MEDS: MULTIVITAMIN 1 TABLET 1 TAB PO (08:30)
[2022-05-29] MEDS: THIAMINE 100 MG TABLET PO (08:30)
[2022-05-29] MEDS: FOLIC ACID 1 MG TABLET PO (08:30)
[2022-05-29] MEDS: SODIUM CHLORIDE 0.9% FLUSH 10 ML IV ×2 (08:31→20:09)
[2022-05-29] MEDS: chlordiazePOXIDE 25 MG CAPSULE 50 MG PO ×3 (08:31→23:45)
[2022-05-29 08:36] LABS: HBsAg Screen Negative (Negative); Hepatitis A Antibody IgM Negative (Negative); Hepatitis B Core Antibody IgM Negative (Negative); Hepatitis C Antibody Non Reactive (Non Reactive)
[2022-05-29] MEDS: MAGNESIUM CHLORIDE 64 MG TABLET 128 MG PO (11:31)
[2022-05-29] MEDS: POTASSIUM CHLORIDE 20 MEQ TAB 40 MEQ PO (11:32)
--- NOTE | 2022-05-29 14:37 | P.PN_ITS ---
Subjective Subjective Interval history: Eros Beavers is a 51-year-old male smoker and heavy drinker, states previously as much as 0.5 gal of vodka daily presented to the ED with complaints of swelling in his bilateral lower extremities that has become profoundly worse over the prior week with difficulty walking.? Additionally he complained of a swollen abdomen which is becoming tender.? He stated he has hot and cold spells w/a runny nose and productive cough w/thick green mucus.? He has had nausea and vomiting for the past 4 days prior to presentation.? He stated he has new onset urinary and bowel incontinence and endorses hematuria.? He stated that he had been seen and evaluated at an outside clinic earlier in the week and was found to have low potassium and was given potassium supplementation which he has been trying to take.? He stated that though he has been a drinker for many years and has gone through withdrawals even seizures in the past he is never had a swollen abdomen, denies having liver failure or a paracentesis. In the ED, they performed a paracentesis and drained off 3 liters.? Abdominal ultrasound reported moderate amount of ascites.? CT of the abdomen and pelvis indicated 1, nodular hepatic contour suggestive of cirrhosis; ill-defined hypodense wedge-shaped region in the posterior right hepatic lobe...? Associated hepatic mass can not be excluded recommending follow-up evaluation with a liver protocol MRI when feasible, moderate amount of ascites and small bilateral pleur al effusions right greater than left with associated bibasilar compressive atelectasis. Still feeling shakey from alcohol withdrawal and has edema of the lower extremities. Very weak in general. Exam Vital Signs (past 8 hours): - 05/29/22 07:39 05/29/22 07:39 05/29/22 08:00 Temperature 98.7 F Pulse Rate 93 H Respiratory Rate 17 Blood Pressure 115/75 Pulse Oximetry 90 L 90 L Oxygen Delivery Method Room Air Room Air Oxygen Flow Rate 05/29/22 11:02 05/29/22 11:50 Temperature 99.0 F Pulse Rate 94 H Respiratory Rate 18 Blood Pressure 113/75 Pulse Oximetry 91 90 L Oxygen Delivery Method Room Air Oxygen Flow Rate 0 Fraction of Inspired Oxygen 28 Oxygen Delivery Method Room Air Oxygen Flow Rate 0 Narrative Exam Narrative: Gen: Alert, oriented, chronically ill appearing male, NAD HEENT: normocephalic, atraumatic, conjunctiva clear, scleral icterus, oral mucosa pink and moist Neck: supple, full ROM, no JVD, trachea is midline Resp: Lungs CTA, non-labored breathing CV: RRR, no murmur or rubs Abd: soft, non-tender, normoactive BTs Skin: jaundiced minimally, dry and intact Neuro: Alert and oriented X 4 w/no focal deficits. Speech clear and coherent. Extremities: bilateral pitting edema, moves all 4 extremities, is ambulatory, negative Britney?s sign Psyche: normal mood and affect. Objective Labs 05/29/22 04:18 05/29/22 04:18 Labs: Laboratory Results - last 24 hr 05/27/22 05/27/22 05/27/22 18:23 19:23 19:40 WBC RBC Hgb Hct MCV MCH MCHC RDW Plt Count Neut % (Auto) Lymph % (Auto) [place] % (Auto) Eos % (Auto) Baso % (Auto) Neut # (Auto) Lymph # (Auto) [place] # (Auto) Eos # (Auto) Baso # (Auto) Total Counted Seg Neutrophils % Band Neutrophils % Lymphocytes % (Manual) Monocytes % (Manual) Basophils % (Manual) Metamyelocytes % Neutrophils # (Manual) RBC Morphology Polychromasia Anisocytosis Macrocytosis PT INR Sodium Potassium Chloride Carbon Dioxide BUN Creatinine Estimated GFR BUN/Creatinine Ratio Glucose Calcium Magnesium Total Bilirubin Conjugated Bilirubin Unconjugated Bilirubin AST ALT Alkaline Phosphatase Total Protein Albumin Globulin Albumin/Globulin Ratio Hepatitis A IgM Ab Negative Hep Bs Antigen Negative Hep B Core IgM Ab Negative Hepatitis C Antibody Non reactive Hep C Ab Signal/Cutoff Comment Ref Test (Refrig) Comment Comment 05/28/22 05/28/22 05/29/22 18:00 18:00 04:18 WBC 15.8 H 15.2 H RBC 1.91 L 2.09 L Hgb 7.2 L 7.9 L Hct 21.6 L 23.9 L MCV 113.6 H D 114.0 H MCH 37.7 H 37.9 H MCHC 33.2 33.3 RDW 28.7 H 28.8 H Plt Count 339 361 Neut % (Auto) 75.1 H Not Reportable Lymph % (Auto) 14.4 L Not Reportable [place] % (Auto) 9.2 Not Reportable Eos % (Auto) 0.9 L Not Reportable Baso % (Auto) 0.4 Not Reportable Neut # (Auto) 60760 H Lymph # (Auto) 2300 Not Reportable [place] # (Auto) 1400 H Not Reportable Eos # (Auto) 100 Baso # (Auto) 100 Not Reportable Total Counted 100 Seg Neutrophils % 70.0 Band Neutrophils % 4.0 Lymphocytes % (Manual) 18.0 L Monocytes % (Manual) 5.0 Basophils % (Manual) 2.0 H Metamyelocytes % 1.0 H Neutrophils # (Manual) 46989 H RBC Morphology See below See below Polychromasia 1+ H 2+ H Anisocytosis 3+ H 3+ H Macrocytosis 2+ H 2+ H PT INR Sodium 135 L Potassium 3.4 Chloride 101 Carbon Dioxide 30 BUN 6 L Creatinine 0.60 L Estimated GFR > 60 BUN/Creatinine Ratio 10.0 Glucose 132 H Calcium 6.6 L Magnesium Total Bilirubin Conjugated Bilirubin Unconjugated Bilirubin AST ALT Alkaline Phosphatase Total Protein Albumin Globulin Albumin/Globulin Ratio Hepatitis A IgM Ab Hep Bs Antigen Hep B Core IgM Ab Hepatitis C Antibody Hep C Ab Signal/Cutoff Ref Test (Refrig) 05/29/22 05/29/22 05/29/22 04:18 04:18 04:18 WBC RBC Hgb Hct MCV MCH MCHC RDW Plt Count Neut % (Auto) Lymph % (Auto) [place] % (Auto) Eos % (Auto) Baso % (Auto) Neut # (Auto) Lymph # (Auto) [place] # (Auto) Eos # (Auto) Baso # (Auto) Total Counted Seg Neutrophils % Band Neutrophils % Lymphocytes % (Manual) Monocytes % (Manual) Basophils % (Manual) Metamyelocytes % Neutrophils # (Manual) RBC Morphology Polychromasia Anisocytosis Macrocytosis PT 11.3 INR 1.0 Sodium 137 Potassium 3.4 Chloride 104 Carbon Dioxide 31 BUN 6 L Creatinine 0.56 L Estimated GFR > 60 BUN/Creatinine Ratio 10.7 Glucose 106 H Calcium 7.1 L Magnesium 1.6 Total Bilirubin 1.9 H Conjugated Bilirubin 0.0 Unconjugated Bilirubin 0.3 AST 60 H ALT 30 Alkaline Phosphatase 235 H Total Protein 6.0 L Albumin 2.5 L Globulin 3.5 Albumin/Globulin Ratio 0.7 L Hepatitis A IgM Ab Hep Bs Antigen Hep B Core IgM Ab Hepatitis C Antibody Hep C Ab Signal/Cutoff Ref Test (Refrig) [facility] Medical History (Updated 05/28/22 @ 06:35 by Jin Romeo DO) Alcohol withdrawal Chronic pain syndrome Spinal stenosis TBI (traumatic brain injury) Family History (Updated 05/28/22 @ 01:59 by ASIM Best) Mother Brain tumor Father Chronic alcohol use Hx of liver transplant Staphylococcal pneumonia Social History household members: none Smoking Status: Current some day smoker alcohol intake: current Assessment & Plan Assessment & Plan narrative: Acute liver failure, present on admission -MELD-NA score is 13 -Hep panel pending, -PT/INR is normal - continue to monitor LFTs Acute anemia, present on admission -Admission H and H was 7.1 and 21.8 respectively, Hb is 7.9 -Monitor H and H for need for transfusion Acute hypokalemia, present on admission -Potassium was 2.4 and was repeated in the emergency department and appeared to receive a total of 120 mEq of potassium, now normal at 3.4 -repeat potassium on admission was 2.6, repleted on admission -likely due to aggressive diuresis and poor nutritional state Presumed infectious process, acute and present on admission -he was given a single dose of IV ceftriaxone and will be initiated on IV Zosyn - blood and ascites cultures both negative however History of alcohol withdrawal, currently not in withdrawal -CIWA protocol -he started on thiamine, folic acid and a multivitamin Tobacco dependence, present on admission -patient states he smokes a pack of cigarettes per day and will receive transdermal Nicoderm patch 14 mcg change daily Follow labs and clinically. VTE Prophylaxis: Wells risk score 0 X Bilateral SCDs Pharmacological VTE prophylaxis contraindicated in the setting of acute anemia. Time Spent With Patient Critical Care time: I spent a total of [] minutes of critical care time on this patient's care today; this time is exclusive of procedural time.
--- NOTE | 2022-05-29 15:10 | CM.DANOTE ---
Initial Discharge Assessment Note: Case reviewed, met with patient. Introduced self and role. Payer: Medicaid and self pay PCP: Santos Morgan 51 year old A/O male admitted 05/27/2022 in alcohol withdrawal, liver failure, anemia, infection, ascites, LE swelling. He states the local chef french found him in the [employer] parking lot and he was transported via ambulance. A paracentesis was done draining 3 Liters. Patient is a daily smoker. He recently has tried to decrease drinking. Patient very weak but mentation improving and conversant with me. He has been in and out of Recovery programs since he started drinking at 17 years old and there is a family history of etoh abuse. Patient has been living in his RV on Tuesday but also visits [place]. He has family in Tuesday. He admits he has been isolating. He has a [facility] shoe parts caser whom he states is very helpful and he is in a civil program for recovery through [facility] currently. Patient states he receives a monthly Trust payment. Plan: Follow for needs. Communicate with [facility] shoe parts caser on Tuesday, see Elda's note. He will need to get his RV repaired due to not functional and still at [employer] parking lot. He is asking for local mechanics. CHLOÉ Discharge Planning/Care Management CM Discharge Assessment Start: 05/29/22 14:44 Freq: Status: Active Protocol: Document 05/29/22 14:45 (Rec: 05/29/22 15:10 [id number]) Discharge Planning Assessment Assigned Seasonal Greenery Bundler Masha Damon RN/DCP Advance Directives? No History Provided By Patient Prior Living Arrangements RV Comment He has been in Tuesday with his RV. Household Members none Type of transporation used prior to Drives own vehicle admit Independent with ADL's Yes Is patient alert and oriented? Yes Caregiver for Another No Barriers to Discharge No Comment He is followed by [facility], has shoe parts caser. Discharge Plan Home Transportation Arrangement His RV is here in [place], he will dc to RV Additional Comment Review Recovery resources which he is familiar with. Review Status In Process Next Review Type Continued Stay Review
[2022-05-30] VITALS (11 sets, daily range): BP systolic 110–124; BP diastolic 58–84; PULSE 87–100; RESP 18–20; TEMP 36.2–37.7; O2SAT 93–99
[2022-05-30] MEDS: ACETAMINOPHEN 325 MG TABLET 650 MG PO ×2 (03:58→20:08)
[2022-05-30] MEDS: OXYCODONE IR 10 MG TABLET PO ×2 (03:58→08:49)
[2022-05-30 05:05] LABS: Ammonia (NH3) 13 umol/L (9-30)
[2022-05-30 05:06] LABS: Hemoglobin 7.1 g/dL (13.5-17.5); Mean Corpuscular HGB Conc 32.4 % (30-36); Mean Corpuscular Hemoglobin 37.4 PG (26-34); Mean Corpuscular Volume 115.6 fL (80-100); Platelet Count 340 X10^3/uL (150-400); Prothrombin Time 11.3 SECONDS (10.1-12.7); Red Cell Distribution Width 28.2 % (11.6-14.8); White Blood Cell Count 15.8 X10^3/uL (4.5-11.0)
[2022-05-30 05:08] LABS: Add Manual Diff / Slide Review YES
[2022-05-30 05:16] LABS: Alanine Aminotransferase 24 IU/L (<50); Albumin 2.2 g/dL (3.5-5.0); Albumin Globulin Ratio 0.7 (1.0-2.8); Alkaline Phosphatase 176 U/L (38-126); Aspartate Aminotransferase 44 IU/L (17-59); Bilirubin Total 1.4 mg/dL (0.2-1.3); Bilirubin Unconjugated 0.1 mg/dL (0.0-1.1); Globulin 3.2 g/dL (1.7-4.1); HEMOLYSIS < 15 (0-50); Total Protein 5.4 g/dL (6.3-8.2)
[2022-05-30 05:18] LABS: Blood Urea Nitrogen 7 mg/dL (9-20); Calcium 7.5 mg/dL (8.4-10.2); Carbon Dioxide 28 mmol/L (22-32); Chloride 107 mmol/L (98-107); Estimated Glomerular Filt Rate > 60 mL/min (>60); Glucose 109 mg/dL (70-100); HEMOLYSIS < 15 (0-50); Magnesium 1.8 mg/dL (1.6-2.3); Potassium 4.2 mmol/L (3.4-5.1); Sodium 134 mmol/L (137-145)
[2022-05-30 05:22] LABS: C-Reactive Protein Quant 1.3 mg/dL (<1.0)
[2022-05-30 05:33] LABS: Procalcitonin 22.2 ng/mL (<0.5)
[2022-05-30 07:05] LABS: Neutrophils Absolute Manual 10744 /uL (3000-5900); Nucleated Red Blood Cells 6 #/Diff; Total Cells Counted 100
[2022-05-30 07:07] LABS: Anisocytosis 3+; Macrocytosis 2+; Polychromasia 2+
[2022-05-30 07:09] LABS: Hypochromasia 1+
[2022-05-30] MEDS: PANTOPRAZOLE 40 MG VIAL IV ×2 (08:45→20:02)
[2022-05-30] MEDS: NICOTINE 14 PATCH 14 MG TOP (08:47)
[2022-05-30] MEDS: THIAMINE 100 MG TABLET PO (08:48)
[2022-05-30] MEDS: FOLIC ACID 1 MG TABLET PO (08:48)
[2022-05-30] MEDS: MULTIVITAMIN 1 TABLET 1 TAB PO (08:49)
[2022-05-30] MEDS: SODIUM CHLORIDE 0.9% FLUSH 10 ML IV ×2 (08:49→20:02)
[2022-05-30] MEDS: chlordiazePOXIDE 25 MG CAPSULE 50 MG PO ×3 (08:49→23:30)
--- NOTE | 2022-05-30 14:27 | P.PN_ITS ---
Subjective Subjective Interval history: Still feeling shakey from alcohol withdrawal but is improving and has edema of the lower extremities and this seems somewhat better. Very weak in general. Eating better today. Exam Vital Signs (past 8 hours): - 05/30/22 08:21 05/30/22 09:00 05/30/22 11:00 Temperature 97.2 F L 98.9 F Pulse Rate 100 H Respiratory Rate 18 Blood Pressure 123/84 Pulse Oximetry 93 94 Oxygen Delivery Method Room Air Oxygen Flow Rate 0 05/30/22 12:01 Temperature Pulse Rate Respiratory Rate Blood Pressure Pulse Oximetry 95 Oxygen Delivery Method Room Air Oxygen Flow Rate Fraction of Inspired Oxygen 28 Oxygen Delivery Method Room Air Oxygen Flow Rate 0 Narrative Exam Narrative: Gen: Alert, oriented, chronically ill appearing male, NAD HEENT: normocephalic, atraumatic, conjunctiva clear, scleral icterus, oral mucosa pink and moist Neck: supple, full ROM, no JVD, trachea is midline Resp: Lungs CTA, non-labored breathing CV: RRR, no murmur or rubs Abd: soft, non-tender, normoactive BTs Skin: jaundiced minimally, dry and intact Neuro: Alert and oriented X 4 w/no focal deficits. Speech clear and coherent. Extremities: bilateral pitting edema, moves all 4 extremities, is ambulatory, negative Britney?s sign Psyche: normal mood and affect. Objective Labs 05/30/22 04:39 05/30/22 04:39 Labs: Laboratory Results - last 24 hr 05/30/22 05/30/22 05/30/22 04:39 04:39 04:39 WBC 15.8 H RBC 1.90 L Hgb 7.1 L Hct 22.0 L MCV 115.6 H MCH 37.4 H MCHC 32.4 RDW 28.2 H Plt Count 340 Neut % (Auto) Not Reportable Lymph % (Auto) Not Reportable [place] % (Auto) Not Reportable Eos % (Auto) Not Reportable Baso % (Auto) Not Reportable Lymph # (Auto) Not Reportable [place] # (Auto) Not Reportable Baso # (Auto) Not Reportable Total Counted 100 Seg Neutrophils % 62.0 Band Neutrophils % 6.0 Lymphocytes % (Manual) 13.0 L Atypical Lymphs % 1.0 H Monocytes % (Manual) 8.0 Basophils % (Manual) 1.0 Metamyelocytes % 8.0 H Myelocytes % 1.0 H Neutrophils # (Manual) 96318 H Nucleated RBCs 6 H RBC Morphology See below Polychromasia 2+ H Hypochromasia 1+ H Anisocytosis 3+ H Macrocytosis 2+ H PT 11.3 INR 1.0 Sodium 134 L Potassium 4.2 Chloride 107 Carbon Dioxide 28 BUN 7 L Creatinine 0.54 L Estimated GFR > 60 BUN/Creatinine Ratio 13.0 Glucose 109 H Calcium 7.5 L Magnesium 1.8 Total Bilirubin Conjugated Bilirubin Unconjugated Bilirubin AST ALT Alkaline Phosphatase Ammonia C-Reactive Protein Total Protein Albumin Globulin Albumin/Globulin Ratio Procalcitonin 05/30/22 05/30/22 05/30/22 04:39 04:39 04:39 WBC RBC Hgb Hct MCV MCH MCHC RDW Plt Count Neut % (Auto) Lymph % (Auto) [place] % (Auto) Eos % (Auto) Baso % (Auto) Lymph # (Auto) [place] # (Auto) Baso # (Auto) Total Counted Seg Neutrophils % Band Neutrophils % Lymphocytes % (Manual) Atypical Lymphs % Monocytes % (Manual) Basophils % (Manual) Metamyelocytes % Myelocytes % Neutrophils # (Manual) Nucleated RBCs RBC Morphology Polychromasia Hypochromasia Anisocytosis Macrocytosis PT INR Sodium Potassium Chloride Carbon Dioxide BUN Creatinine Estimated GFR BUN/Creatinine Ratio Glucose Calcium Magnesium Total Bilirubin 1.4 H Conjugated Bilirubin 0.0 Unconjugated Bilirubin 0.1 AST 44 ALT 24 Alkaline Phosphatase 176 H Ammonia 13 C-Reactive Protein 1.3 H Total Protein 5.4 L Albumin 2.2 L Globulin 3.2 Albumin/Globulin Ratio 0.7 L Procalcitonin 22.2 H [facility] Medical History (Updated 05/28/22 @ 06:35 by Jin Romeo DO) Alcohol withdrawal Chronic pain syndrome Spinal stenosis TBI (traumatic brain injury) Family History (Updated 05/28/22 @ 01:59 by ASIM Best) Mother Brain tumor Father Chronic alcohol use Hx of liver transplant Staphylococcal pneumonia Social History household members: none Smoking Status: Current some day smoker alcohol intake: current Assessment & Plan Assessment & Plan narrative: Acute liver failure, present on admission -MELD-NA score is 13 -Hep panel pending, -PT/INR is normal - continue to monitor LFTs, have improved today, follow Acute anemia, present on admission -Admission H and H was 7.1 and 21.8 respectively, Hb is 7.9 -Monitor H and H for need for transfusion -hemoglobin stable at 7.1 today Acute hypokalemia, present on admission -Potassium was 2.4 and was repeated in the emergency department and appeared to receive a total of 120 mEq of potassium, now normal at 4.2 -repeat potassium on admission was 2.6, repleted on admission -likely due to aggressive diuresis and poor nutritional state Presumed infectious process, acute and present on admission -he was given a single dose of IV ceftriaxone and will be initiated on IV Zosyn - blood and ascites cultures both negative however History of alcohol withdrawal, currently not in withdrawal -CIWA protocol -he started on thiamine, folic acid and a multivitamin Tobacco dependence, present on admission -patient states he smokes a pack of cigarettes per day and will receive transdermal Nicoderm patch 14 mcg change daily Elevated procalcitonin and CRP -due to monitor Follow labs and clinically. Time Spent With Patient Critical Care time: I spent a total of [] minutes of critical care time on this patient's care today; this time is exclusive of procedural time.
[2022-05-30] MEDS: PIPERACILLIN/TAZO 3.375 GM in SODIUM CHLORIDE 0.9% 100 ML IV ×2 (14:41→23:31)
--- NOTE | 2022-05-30 15:08 | PT.IPNOTE ---
Hold PT today due to low H&H; reassess tomorrow 05/31/22.
--- NOTE | 2022-05-30 15:11 | PC.NURSE ---
Day shift: Pt is attempting to get OOB without help and also get back into bed after using the BR without any help. Explained to Pt that he is still unsteady and may fall (This was discussed yesterday). Bed alarm is on. Last CIWA score 1. He is A&Ox4 and makes his needs know except when he needs to use the BR. Will continue to remind him. Call light in reach. Door to room is open and view room.
--- NOTE | 2022-05-30 15:25 | CM.DPNOTE ---
Discharge Planning Note: Patient remains weak, uses walker. Abnormal labs, continues with anemia, Hgb=7.1 this morning. He told me yesterday he receives a monthly check from his Trust fund, unsure of financial stability. Plan: On Tuesday, contact [facility] case filler on [place]: [phone]. *(He apparently has a patient case manager also locally). When patient ready to discharge call Anthony Corbett, community test engineering manager who originally had found him in [employer] parking lot in his RV. (Note his RV has mechanical breakdown) Remains unknown as to where we will discharge him, perhaps back to his RV. Can he call a powerhouse mechanic supervisor tomorrow for repair of RV (provided one referral) Masha Damon RN/DCP
[2022-05-30] MEDS: OXYCODONE IR 5 MG TABLET PO (20:06)
[2022-05-31] VITALS (7 sets, daily range): BP systolic 114–127; BP diastolic 75–81; PULSE 90–100; RESP 17–18; TEMP 36.6–36.8; O2SAT 95–97
[2022-05-31 04:47] LABS: Hematocrit 25.1 % (41-53); Hemoglobin 8.2 g/dL (13.5-17.5); Mean Corpuscular HGB Conc 32.5 % (30-36); Mean Corpuscular Volume 116.9 fL (80-100); Platelet Count 360 X10^3/uL (150-400); Red Blood Cell Count 2.15 X10^6/uL (4.5-5.9); White Blood Cell Count 16.5 X10^3/uL (4.5-11.0)
[2022-05-31 04:48] LABS: Add Manual Diff / Slide Review YES
[2022-05-31 04:58] LABS: Lactate (Lactic Acid) 1.4 mmol/L (0.7-2.1)
[2022-05-31 05:03] LABS: Alanine Aminotransferase 25 IU/L (<50); Albumin 2.7 g/dL (3.5-5.0); Albumin Globulin Ratio 0.7 (1.0-2.8); Alkaline Phosphatase 194 U/L (38-126); Aspartate Aminotransferase 44 IU/L (17-59); Bilirubin Total 1.6 mg/dL (0.2-1.3); Blood Urea Nitrogen 8 mg/dL (9-20); Calcium 8.3 mg/dL (8.4-10.2); Carbon Dioxide 27 mmol/L (22-32); Chloride 107 mmol/L (98-107); Estimated Glomerular Filt Rate > 60 mL/min (>60); Globulin 3.7 g/dL (1.7-4.1); Glucose 107 mg/dL (70-100); HEMOLYSIS < 15 (0-50); Potassium 4.6 mmol/L (3.4-5.1); Sodium 138 mmol/L (137-145); Total Protein 6.4 g/dL (6.3-8.2)
[2022-05-31 05:04] LABS: Alanine Aminotransferase 25 IU/L (<50); Albumin 2.8 g/dL (3.5-5.0); Albumin Globulin Ratio 0.8 (1.0-2.8); Alkaline Phosphatase 189 U/L (38-126); Aspartate Aminotransferase 45 IU/L (17-59); Bilirubin Total 1.5 mg/dL (0.2-1.3); Bilirubin Unconjugated 0.2 mg/dL (0.0-1.1); C-Reactive Protein Quant 1.2 mg/dL (<1.0); Globulin 3.6 g/dL (1.7-4.1); HEMOLYSIS < 15 (0-50); Total Protein 6.4 g/dL (6.3-8.2)
[2022-05-31 05:06] LABS: Neutrophils Absolute Manual 12045 /uL (3000-5900); Nucleated Red Blood Cells 4 #/Diff; Total Cells Counted 100
[2022-05-31 05:07] LABS: Anisocytosis 3+; Polychromasia 2+
[2022-05-31 05:08] LABS: Macrocytosis 2+
[2022-05-31 05:16] LABS: Procalcitonin 15.6 ng/mL (<0.5)
[2022-05-31] MEDS: PIPERACILLIN/TAZO 3.375 GM in SODIUM CHLORIDE 0.9% 100 ML IV ×3 (06:53→23:39)
[2022-05-31] MEDS: chlordiazePOXIDE 25 MG CAPSULE 50 MG PO ×3 (06:53→23:39)
[2022-05-31] MEDS: PANTOPRAZOLE 40 MG VIAL IV ×2 (08:48→20:13)
[2022-05-31] MEDS: MULTIVITAMIN 1 TABLET 1 TAB PO (08:49)
[2022-05-31] MEDS: SODIUM CHLORIDE 0.9% FLUSH 10 ML IV ×2 (08:49→20:13)
[2022-05-31] MEDS: FOLIC ACID 1 MG TABLET PO (08:49)
[2022-05-31] MEDS: NICOTINE 14 PATCH 14 MG TOP (08:49)
[2022-05-31] MEDS: OXYCODONE IR 5 MG TABLET PO ×3 (08:52→20:13)
--- NOTE | 2022-05-31 09:36 | PT.IIE ---
Addendum entered and electronically signed by Lizet Shepherd, JT 05/31/22 13:58: Per OT, Pt is mobilizing better later this AM. He was witnessed standing and moving recliner chair in room. Please consider Pt may not need SNF if his mobility is improving. Original Note: Current Diagnoses Anemia, unspecified (05/27/22) Medical History (Last Updated 05/28/22 @ 02:01 by ASIM Best) Alcohol withdrawal Chronic pain syndrome Spinal stenosis TBI (traumatic brain injury) Physical Therapy Inpatient Evaluation/Re-Eval M1 PT/OT-IP Prior Functional Status Start: 05/31/22 09:15 Freq: Status: Active Protocol: Document 05/31/22 09:15 BC (Rec: 05/31/22 09:36 [id number]) Medical Review Prior Functional Status Medical History Reviewed Yes Diet/Fluid Consistency Regular Communication Independent Mobility and Gait Independent; no a.d. Reports gradually less activity and more sedentary lifestyle Activities of Daily Living and IADL's Independent Prior Functional Level (Other details) [facility] He reports that it is full of belongings and he can only sit in parts delivery driver sit or climb in back to bed. He has to step up on hitch to step up into back door to access his bed. He cannot use an a.d. in the [facility] as he is unable to walk through it due to clutter. He states he can walk at baseline in/out of stores but relies on grocery carts for support. He reports increased weakness over last 8 -9 days and inability to get out of [facility]. Social History Household Members none Living Arrangements RV Number of Stairs To Enter/Railing? Step up into parts delivery driver seat or steps up on back hitch through back doors. M2 PT-IP Current Condition Start: 05/31/22 09:15 Freq: Status: Active Protocol: Document 05/31/22 09:15 BC (Rec: 05/31/22 09:36 [id number]) Physical Therapy Current Condition Current Condition Evaluation Date 05/31/22 Treatment Diagnosis Weakness; ETOH withdrawal; difficulty with ambulation Onset Date 05/27/22 M3 PT-IP Subjective Start: 05/31/22 09:15 Freq: Status: Active Protocol: Document 05/31/22 09:15 BC (Rec: 05/31/22 09:36 [id number]) Subjective Physical Therapy Visit Type Type Initial Evaluation Visit Start Time 08:50 Visit Stop Time 09:15 Total Visit Minutes 25 Physical Therapy Visit Comments Patient Comments States PT doesn't work for him because he has a bad back. Patient Goals None specific. Therapy Pain Assessment Pain When Pain Assessed During Weight Bearing Pain Present Pain Present Pain Reported Location Bilateral Leg Intensity 5 Scale Used Numeric (0 - 10) Description Pressure M4 PT-IP Mobility and Gait Start: 05/31/22 09:15 Freq: Status: Active Protocol: Document 05/31/22 09:15 BC (Rec: 05/31/22 09:36 [id number]) PT-Bed Mobility Assessment Rolling Level of Assist Independent Supine to Sit Supine to Sit Independent Sit to Supine Sit to Supine Independent PT-Transfer Assessment Sit to and From Stand Sit to and from Stand Contact Guard Assistance, Minimal Assistance Equipment Transfer Assistive Device Gait Belt Transfers Transfer Destination Bed,Chair Transfer Technique Stand Pivot Transfer Ability Level of Assist Minimal Assistance Comments Mobility Comments Bed mobility sit<>supine is independent. Getting into bed he goes in forward and crawls into bed. Sit to stand requires min to CGA. Rather unsteady with this transfer, bracing BLE onto steady surfaces of bed/bench seat. Gait Assessment Gait Gait Assistance Required: Minimum Assistance Distance (Feet) 30 Assistive Devices Assistive Device Gait Belt Gait Deviations General Gait Pattern Ataxic,Decreased Stride Length ,Decreased Feet Clearance,Wide Based Gait Factors Limiting Gait Function Factors Limiting Gait Function Decreased Activity Tolerance, Decreased Sensation,Decreased Strength,Pain,Poor Balance Comments Gait Comments Pt reports increased foot pain bilaterally in WB contributing to imbalance with gait. Clear ataxia with ambulation increasing fall risk. Pt fatigues rapidly. Returns to bench in room to sit and nearly falls into bench vs having controlled descent. Stair Climbing Assessment Comments Stair Climbing Comments Unable at this time PT-Balance Assessment Sitting Balance and Reactions Static Sitting Balance Ability Normal Dynamic Sitting Balance Ability Good Standing Balance and Reactions Static Standing Balance Ability Fair Dynamic Standing Balance Ability Poor Device Used none Comments Other Balance Tests/Deviations/Treatment Balance is impaired due to : ataxia of extremities and pain in BLE feet in WB. Functional Assessments Functional Tests 5 Times Sit to Stand 26 seconds Tinetti Balance and Gait Assessment 02/22 M5 PT-IP Objective Assessments Start: 05/31/22 09:15 Freq: Status: Active Protocol: Document 05/31/22 09:15 BC (Rec: 05/31/22 09:36 [id number]) Orientation Orientation/Cognition Level of Alertness Alert Orientation Name,Date,Place,Situation Language Function Ability No Deficits Noted Safety Awareness Decreased Safety Awareness Comments Bed alarm on after tx Gross Range of Motion Upper Extremity ROM Assessment Within Functional Limits Lower Extremity ROM Assessment Within Functional Limits Strength Upper Extremity Strength Assessment Bilaterally Impaired Shoulder 3/5 Elbow 4-/5 Wrist 4-/5 Hand weak grasp bilaterally, unable to maintain digit abduction against [place] Lower Extremity Strength Assessment Bilaterally Impaired Hip 3+ to 4-/5 Knee 3+/5 Ankle 3+/5 Comments Strength Comments Generally weak, no focal weaknesses noted. Coordination Assessment Gross Coordination Gross Coordination Impaired Assessment Finger to Nose Test Minimal Impairment Foot Tapping Test Minimal Impairment Heel on Donaldson Test Minimal Impairment Coordination Comments slow movements, occassional overshooting with dysmetria testing M6 PT-IP Treatment Start: 05/31/22 09:15 Freq: Status: Active Protocol: Document 05/31/22 09:15 (Rec: 05/31/22 09:36 [id number]) Physical Therapy Treatment Education Education Provided Safety Other Treatments Other Treatment Performed Pt educated on role of PT and PT for regaining his PLOF vs PT he may have recieved in years past for his spine. M7 PT-IP Assessment and Plan Start: 05/31/22 09:15 Freq: Status: Active Protocol: Document 05/31/22 09:15 BC (Rec: 05/31/22 09:36 [id number]) PT Summary Assessment and Plan Potential Rehabilitation Potential Good Status of Condition at Evaluation Evolving Summary Impairments Pain,Strength,Balance, Coordination,Transfers,Gait, Activity Tolerance Progress Towards Goals Progressing Toward Goals Assessment Summary Pt admitted from being found in his RV at [employer] parking lot. Admitted with ETOH withdrawal, BLE edema and weakness. H&H has been low but is more stable today at 8.2 and 25.1. Pt states his PLOF up to 8-9 days ago, was independent with ambulation and transfers; using grocery cart for walking longer distances. His RV is only accessible at the parts delivery driver seat and back door to his bed. He states it is cluttered and he cannot walk through it. He does not own any assistive devices. He gets into the back of his RV by stepping up on the hitch and climbing into the bed. CLOF: Pt is presenting with high fall risk on Tinetti and 5x sit to stand test. He is generally weak with MMT. He has ataxic like movements and required PT assist 4 times with gait belt to prevent a LOB. IPPT to work on increasing activity tolerance, balance, and gait. Consider use of SPC though Pt denies need at time of eval. SPC could be beneficial in RV and community navigation where a walker is less likely to be conducive. Recommend d/c to 18/10 assist. He could benefit from SNF given he had a higher PLOF just ~2 weeks ago vs his CLOF. Even if his RV is operable again, it sounds like he is unable to physically get in/ out of RV at this juncture. Goals Transfer Goal Independent Gait Goal Independent,Cane Gait Distance 250 Other Goals *Step up single curb for community navigation with SPC and Modif Ind *Step up high step to enter RV parts delivery driver door with modif Ind. Days to Meet Goals 6 Frequency of Treatment Frequency Of Treatment Once a Day Treatment Plan Physical Therapy Treatment Plan Bed Mobility Training,Transfer Training,Gait Training, Therapeutic Exercise,Balance Retraining,Discharge Planning, Neuromuscular Re-ed Precautions Other Precautions Fall Risk Recommendations To Nursing Amount of Assist Needed 1 Person Assist Discharge Recommendations PT Discharge Recommendations SNF Rehab Other Discharge Recommendations SNF if Pt is agreeable. Currently he is reporting PT doesn't work because it hurts his back. We discussed differences between SNF therapy vs OPPT. Transportation Needs at Discharge Wheelchair/Cabulance
--- NOTE | 2022-05-31 12:31 | OT.IP.EVAL ---
Current Diagnoses Anemia, unspecified (05/27/22) Past Medical History (Last Updated 05/28/22 @ 02:01 by ASIM Best) Alcohol withdrawal Chronic pain syndrome Spinal stenosis TBI (traumatic brain injury) Occupational Therapy Inpatient Evaluation/Re-Eval M1 PT/OT-IP Prior Functional Status Start: 05/31/22 09:15 Freq: Status: Active Protocol: Document 05/31/22 09:15 (Rec: 05/31/22 09:36 [id number]) Medical Review Prior Functional Status Medical History Reviewed Yes Diet/Fluid Consistency Regular Communication Independent Mobility and Gait Independent; no a.d. Reports gradually less activity and more sedentary lifestyle Activities of Daily Living and IADL's Independent Prior Functional Level (Other details) Pt resides in his [place]. He reports that it is full of belongings and he can only sit in class b driver sit or climb in back to bed. He has to step up on hitch to step up into back door to access his bed. [facility] he is unable to walk through it due to clutter. He states he can walk at baseline in/out of stores but relies on grocery carts for support. He reports increased weakness over last 8 -9 days and inability to get out of motorhome. Social History Household Members none Living Arrangements RV Number of Stairs To Enter/Railing? Step up into class b driver seat or steps up on back hitch through back doors. M1 PT/OT-IP Prior Functional Status Start: 05/31/22 11:21 Freq: NEEDED Status: Active Protocol: Document 05/31/22 10:48 [facility] (Rec: 05/31/22 12:31 [facility] [id number]) Medical Review Prior Functional Status Medical History Reviewed Yes Diet/Fluid Consistency Regular Communication Independent Mobility and Gait Independent; no a.d. Reports gradually less activity and more sedentary lifestyle Activities of Daily Living and IADL's Independent Prior Functional Level (Other details) Pt resides in his [place]. He reports that it is full of belongings and he can only sit in class b driver sit or climb in back to bed. He has to step up on hitch to step up into back door to access his bed. He cannot use an a.d. in the [facility] as he is unable to walk through it due to clutter. He states he can walk at baseline in/out of stores but relies on grocery carts for support. He reports increased weakness over last 8 -9 days and inability to get out of motorhome. Social History Household Members none Living Arrangements RV Number of Stairs To Enter/Railing? Step up into class b driver seat or steps up on back hitch through back doors. M2 OT-IP Current Condition Start: 05/31/22 11:21 Freq: Status: Active Protocol: Document 05/31/22 10:48 [facility] (Rec: 05/31/22 12:31 [facility] [id number]) Occupational Therapy Current Condition Current Condition Evaluation Date 05/31/22 Treatment Diagnosis Acute liver failure/ETOH withdrawl M3 OT- IP Subjective and Pain Start: 05/31/22 11:21 Freq: Status: Active Protocol: Document 05/31/22 10:48 [facility] (Rec: 05/31/22 12:31 [facility] [id number]) OT- Subjective Occupational Therapy Visit Type Type Initial Evaluation Visit Start Time 10:48 Visit Stop Time 11:10 Total Visit Minutes 22 Occupational Therapy Visit Comments Patient Comments Pt agreed to get up to the recliner Patient/Caregiver Goals Pt did not state. OT Pain Assessment Pain When Pain Assessed At Rest Pain Present Pain Present Denied Pain M4 OT- IP ADL's Start: 05/31/22 11:21 Freq: Status: Active Protocol: Document 05/31/22 10:48 [facility] (Rec: 05/31/22 12:31 [facility] [id number]) OT [id number] Comments OT Self-Feeding Comments Not at meal time. OT ADL-Grooming Comments OT Grooming Comments pt refused OT ADL-Oral Care Comments Oral Care Comments pt refused OT ADL-Dressing General Eval Lower Body Dressing Ability Standby Assistance Comments OT Dressing Comments Pt able to derrick/doff is socks in long sitting on the bed. OT ADL-Toileting Comments OT Toileting Comments pt not having to go at this time OT ADL-Bathing Comments OT Bathing Comments not performed M5 OT- IP IADL's Start: 05/31/22 11:21 Freq: Status: Active Protocol: Document 05/31/22 10:48 [facility] (Rec: 05/31/22 12:31 [facility] [id number]) OT-Instrumental Activities of Daily Living Home Safety Awareness Home Safety Comments Pt lives in his RV that is not working at this time. Pt states does not shower and goes out to buy food for his specific diet, pt did not specify what kind of diet. M6 OT- IP Functional Cognition Start: 05/31/22 11:21 Freq: Status: Active Protocol: Document 05/31/22 10:48 [facility] (Rec: 05/31/22 12:31 [facility] [id number]) Cognitive Factors Limiting Selfcare Function Cognitive Ability Level of Alertness Alert Patient Orientation Name,Situation Attention Span Ability Capable of Focused Attention, Capable of Sustained Attention Ability to Follow Commands Able to Follow One Step Commands Cognitive Comments Cognitive Assessment Comments Pt able to follow commands for mobility needs however vert limitied for his participation in OT eval as not wanting to do much. OT- Vision and Hearing OT- Hearing Assessment OT- Hearing Assessment WFL OT- Vision Assessment Vision Assessment Comments Pt states needs glasses but has not gotten any recently. M7 OT- IP Mobility and Balance Start: 05/31/22 11:21 Freq: Status: Active Protocol: Document 05/31/22 10:48 [facility] (Rec: 05/31/22 12:31 [facility] [id number]) OT- Bed Mobility Assessment Supine to Sit Supine to Sit Assist Standby Assistance OT-Transfer Assessment Sit to and From Stand Sit to and from Stand Standby Assistance Transfers Transfer Ability Standby Assistance Technique Transfer Destination Bed,Chair Transfer Technique Stand Step Pivot Devices Transfer Assistive Devices Gait Belt,Front Wheeled Walker Comments Mobility Comments distant SBA for bed mobility needs and able to transfer with FWW to the recliner. Pt not wanting to more any more at this time. Able to witness pt from a far of standing up on his own to help nursing get the recliner adjusted. It is possible that pt is moving better than seen on OT eval. OT- Balance Assessment Sitting Balance and Reactions Static Sitting Balance Ability Normal Dynamic Sitting Balance Ability Good Standing Balance and Reactions Static Standing Balance Ability Good Dynamic Standing Balance Ability Fair M8 OT- IP Objective Assessments Start: 05/31/22 11:21 Freq: Status: Active Protocol: Document 05/31/22 10:48 [facility] (Rec: 05/31/22 12:31 [facility] [id number]) OT Gross Range of Motion Upper Extremity Range of Motion Assessment Within Functional Limits OT Strength Comments Strength Comments BUE from 3+/5 to 4-/5 M9 OT- IP Assessment and Plan Start: 05/31/22 11:21 Freq: Status: Active Protocol: Document 05/31/22 10:48 [facility] (Rec: 05/31/22 12:31 [facility] [id number]) OT Summary Assessment and Plan Potential Rehabilitation Potential Good Analytic Complexity at Evaluation Moderate Summary OT Impairments Strength,Balance,Functional Cognition,Functional Mobility, Dressing,Toileting,Bathing, Toilet Transfers,Shower Transfers,Activity Tolerance Progress Towards Goals Progressing Toward Goals Assessment Summary Pt MOD complexity and main barrier is weakness, decreased activity tolerance, balance and now needing minimal assist for ADL and mobility needs. Pt to go home with assist as needed when medically stable. Pt insistent that he is not able to care for himself and not open to trying to do all ADL's tasks with OT. Goals Self-Feeding Goal Independent Grooming Goal Independent Dressing Goal Independent Toileting Goal Independent Bathing Goal Independent Toilet Transfer Goal Independent Shower Transfer Goal Independent Days to Meet Goals 5 Frequency of Treatment Frequency Of Treatment Once a Day Treatment Plan OT Treatment Plan ADL Training,Functional Mobility,Patient/Family Education,Discharge Planning Other Treatment Recommendations and Next stand at sink for ADL needs Treatment Focus Discharge Recommendations OT Discharge Recommendations Home with Assistance Transportation Needs at Discharge Private Vehicle
--- NOTE | 2022-05-31 16:24 | P.PN_ITS ---
Subjective Subjective Interval history: Feeling somewhat better today. Still weak with walking however. Up in chair and watching TV. Exam Vital Signs (past 8 hours): Fraction of Inspired Oxygen 28 Oxygen Delivery Method Room Air Oxygen Flow Rate 0 Narrative Exam Narrative: Gen: Alert, oriented, chronically ill appearing male, NAD HEENT: normocephalic, atraumatic, conjunctiva clear, scleral icterus, oral mucosa pink and moist Neck: supple, full ROM, no JVD, trachea is midline Resp: Lungs CTA, non-labored breathing CV: RRR, no murmur or rubs Abd: soft, non-tender, normoactive BTs Skin: jaundiced minimally, dry and intact Neuro: Alert and oriented X 4 w/no focal deficits. Speech clear and coherent. Extremities: bilateral pitting edema, moves all 4 extremities, is ambulatory, negative Britney?s sign Psyche: normal mood and affect. Objective Labs 05/31/22 04:33 05/31/22 04:33 Labs: Laboratory Results - last 24 hr 05/31/22 05/31/22 05/31/22 04:33 04:33 04:33 WBC 16.5 H RBC 2.15 L Hgb 8.2 L Hct 25.1 L MCV 116.9 H MCH 38.0 H MCHC 32.5 RDW 27.0 H Plt Count 360 Neut % (Auto) Not Reportable Lymph % (Auto) Not Reportable [place] % (Auto) Not Reportable Eos % (Auto) Not Reportable Baso % (Auto) Not Reportable Lymph # (Auto) Not Reportable [place] # (Auto) Not Reportable Baso # (Auto) Not Reportable Total Counted 100 Seg Neutrophils % 64.0 Band Neutrophils % 9.0 H Lymphocytes % (Manual) 9.0 L Atypical Lymphs % 2.0 H Monocytes % (Manual) 7.0 Eosinophils % (Manual) 2.0 Basophils % (Manual) 2.0 H Metamyelocytes % 4.0 H Myelocytes % 1.0 H Neutrophils # (Manual) 32140 H Nucleated RBCs 4 H RBC Morphology See below Polychromasia 2+ H Anisocytosis 3+ H Macrocytosis 2+ H Sodium Potassium Chloride Carbon Dioxide BUN Creatinine Estimated GFR BUN/Creatinine Ratio Glucose Lactate 1.4 Calcium Total Bilirubin 1.5 H Conjugated Bilirubin 0.0 Unconjugated Bilirubin 0.2 AST 45 ALT 25 Alkaline Phosphatase 189 H C-Reactive Protein 1.2 H Total Protein 6.4 Albumin 2.8 L Globulin 3.6 Albumin/Globulin Ratio 0.8 L Procalcitonin 15.6 H 05/31/22 04:33 WBC RBC Hgb Hct MCV MCH MCHC RDW Plt Count Neut % (Auto) Lymph % (Auto) [place] % (Auto) Eos % (Auto) Baso % (Auto) Lymph # (Auto) [place] # (Auto) Baso # (Auto) Total Counted Seg Neutrophils % Band Neutrophils % Lymphocytes % (Manual) Atypical Lymphs % Monocytes % (Manual) Eosinophils % (Manual) Basophils % (Manual) Metamyelocytes % Myelocytes % Neutrophils # (Manual) Nucleated RBCs RBC Morphology Polychromasia Anisocytosis Macrocytosis Sodium 138 Potassium 4.6 Chloride 107 Carbon Dioxide 27 BUN 8 L Creatinine 0.50 L Estimated GFR > 60 BUN/Creatinine Ratio 16.0 Glucose 107 H Lactate Calcium 8.3 L Total Bilirubin 1.6 H Conjugated Bilirubin Unconjugated Bilirubin AST 44 ALT 25 Alkaline Phosphatase 194 H C-Reactive Protein Total Protein 6.4 Albumin 2.7 L Globulin 3.7 Albumin/Globulin Ratio 0.7 L Procalcitonin [facility] Medical History (Updated 05/28/22 @ 06:35 by Jin Romeo DO) Alcohol withdrawal Chronic pain syndrome Spinal stenosis TBI (traumatic brain injury) Family History (Updated 05/28/22 @ 01:59 by ASIM Best) Mother Brain tumor Father Chronic alcohol use Hx of liver transplant Staphylococcal pneumonia Social History household members: none Smoking Status: Current some day smoker alcohol intake: current Assessment & Plan Assessment & Plan narrative: Acute liver failure, present on admission -MELD-NA score is 13 -Hep panel pending, -PT/INR is normal - continue to monitor LFTs, have still elevated bilirubin and alkaline phosphatase Acute anemia, present on admission -Admission H and H was 7.1 and 21.8 respectively, Hb is 8.2 and this has improved. -Monitor H and H for need for transfusion -hemoglobin stable at 7.1 today Acute hypokalemia, present on admission -Potassium was 2.4 and was repeated in the emergency department and appeared to receive a total of 120 mEq of potassium, now normal at 4.6 -repeat potassium on admission was 2.6, repleted on admission -likely due to aggressive diuresis and poor nutritional state Presumed infectious process, acute and present on admission -he was given a single dose of IV ceftriaxone and yesterday was initiated on IV Zosyn - blood and ascites cultures both negative however, continue to monitor procalcitonin and CRP History of alcohol withdrawal, currently not in withdrawal -[facility] protocol -he started on thiamine, folic acid and a multivitamin Tobacco dependence, present on admission -patient states he smokes a pack of cigarettes per day and will receive transdermal Nicoderm patch 14 mcg change daily Elevated procalcitonin and CRP -CRP decreased to 1.2 today and procalcitonin decreased to 15.6 today. Continue to monitor. It would be best to use these markers as a monitoring of his infection and ensure that they have decreased significantly prior to discontinuing Zosyn. Follow labs and clinically. Time Spent With Patient Critical Care time: I spent a total of [] minutes of critical care time on this patient's care today; this time is exclusive of procedural time.
[2022-06-01] MEDS: OXYCODONE IR 5 MG TABLET PO ×4 (03:11→21:53)
[2022-06-01 03:12] VITALS: BP 124/71; PULSE 75; RESP 16; TEMP 36.9; O2SAT 93
[2022-06-01] MEDS: ACETAMINOPHEN 325 MG TABLET 650 MG PO ×2 (05:00→11:34)
[2022-06-01 05:07] LABS: Alanine Aminotransferase 24 IU/L (<50); Albumin 2.8 g/dL (3.5-5.0); Albumin Globulin Ratio 0.8 (1.0-2.8); Alkaline Phosphatase 154 U/L (38-126); Aspartate Aminotransferase 38 IU/L (17-59); BUN Creatinine Ratio 16.4 (6-22); Bilirubin Total 1.3 mg/dL (0.2-1.3); Bilirubin Unconjugated 0.1 mg/dL (0.0-1.1); Blood Urea Nitrogen 9 mg/dL (9-20); C-Reactive Protein Quant 1.1 mg/dL (<1.0); Carbon Dioxide 26 mmol/L (22-32); Chloride 106 mmol/L (98-107); Estimated Glomerular Filt Rate > 60 mL/min (>60); Globulin 3.4 g/dL (1.7-4.1); Glucose 101 mg/dL (70-100); HEMOLYSIS < 15 (0-50); Sodium 136 mmol/L (137-145); Total Protein 6.2 g/dL (6.3-8.2)
[2022-06-01 05:10] LABS: Hemoglobin 7.9 g/dL (13.5-17.5); Mean Corpuscular HGB Conc 31.6 % (30-36); Mean Corpuscular Hemoglobin 37.2 PG (26-34); Mean Corpuscular Volume 117.8 fL (80-100); Platelet Count 349 X10^3/uL (150-400); Red Blood Cell Count 2.12 X10^6/uL (4.5-5.9); Red Cell Distribution Width 25.7 % (11.6-14.8); White Blood Cell Count 12.5 X10^3/uL (4.5-11.0)
[2022-06-01 05:17] LABS: Add Manual Diff / Slide Review YES
[2022-06-01 05:29] LABS: Neutrophils Absolute Manual 9000 /uL (3000-5900); Nucleated Red Blood Cells 2 #/Diff; Total Cells Counted 100
[2022-06-01 05:31] LABS: Polychromasia 2+
[2022-06-01 05:32] LABS: Stomatocytes 2+
[2022-06-01 05:33] LABS: Anisocytosis 3+; Macrocytosis 2+
[2022-06-01] MEDS: PIPERACILLIN/TAZO 3.375 GM in SODIUM CHLORIDE 0.9% 100 ML IV ×3 (07:45→21:54)
[2022-06-01 08:00] VITALS: O2SAT 93
[2022-06-01] MEDS: chlordiazePOXIDE 25 MG CAPSULE PO ×3 (08:01→23:54)
--- NOTE | 2022-06-01 09:20 | OT.IP.TRT ---
Current Diagnoses Anemia, unspecified (05/27/22) Occupational Therapy Treatment Note M2 OT-IP Current Condition Start: 05/31/22 11:21 Freq: Status: Active Protocol: Document 05/31/22 10:48 [facility] (Rec: 05/31/22 12:31 [facility] [id number]) Occupational Therapy Current Condition Current Condition Evaluation Date 05/31/22 Treatment Diagnosis Acute liver failure/ETOH withdrawl M3 OT- IP Subjective and Pain Start: 05/31/22 11:21 Freq: Status: Active Protocol: Document 06/01/22 09:27 [facility] (Rec: 06/01/22 09:37 [facility] [id number]) OT- Subjective Occupational Therapy Visit Type Type Treatment Note Visit Start Time 09:10 Visit Stop Time 09:20 Total Visit Minutes 10 Occupational Therapy Visit Comments Patient Comments Pt agreed to get up. Patient/Caregiver Goals To get better. OT Pain Assessment Pain When Pain Assessed During Mobility Pain Present Pain Present Pain Reported M4 OT- IP ADL's Start: 05/31/22 11:21 Freq: Status: Active Protocol: Document 05/31/22 10:48 [facility] (Rec: 05/31/22 12:31 [facility] [id number]) OT [id number] Comments OT Self-Feeding Comments Not at meal time. OT ADL-Grooming Comments OT Grooming Comments pt refused OT ADL-Oral Care Comments Oral Care Comments pt refused OT ADL-Dressing General Eval Lower Body Dressing Ability Standby Assistance Comments OT Dressing Comments Pt able to derrick/doff is socks in long sitting on the bed. OT ADL-Toileting Comments OT Toileting Comments pt not having to go at this time OT ADL-Bathing Comments OT Bathing Comments not performed M5 OT- IP IADL's Start: 05/31/22 11:21 Freq: Status: Active Protocol: Document 05/31/22 10:48 [facility] (Rec: 05/31/22 12:31 [facility] [id number]) OT-Instrumental Activities of Daily Living Home Safety Awareness Home Safety Comments Pt lives in his that is not working at this time. Pt states does not shower and goes out to buy food for his specific diet, pt did not specify what kind of diet. M6 OT- IP Functional Cognition Start: 05/31/22 11:21 Freq: Status: Active Protocol: Document 06/01/22 09:27 [facility] (Rec: 06/01/22 09:37 [facility] [id number]) Cognitive Factors Limiting Selfcare Function Cognitive Ability Level of Alertness Alert Patient Orientation Name,Situation Attention Span Ability Capable of Focused Attention, Capable of Sustained Attention Ability to Follow Commands Able to Follow One Step Commands Cognitive Comments Cognitive Assessment Comments Pt still not wanting to do ADL needs but agreed to get up and walk in the room and also requesting coffee. VC for FWW safety and vc to keep his feet apart as he tends to cross his legs. M7 OT- IP Mobility and Balance Start: 05/31/22 11:21 Freq: Status: Active Protocol: Document 06/01/22 09:27 [facility] (Rec: 06/01/22 09:37 [facility] [id number]) OT-Transfer Assessment Sit to and From Stand Sit to and from Stand Contact Guard Assistance Transfers Transfer Ability Standby Assistance,Minimal Assistance Technique Transfer Destination Bed,Chair Transfer Technique Stand Step Pivot Devices Transfer Assistive Devices Gait Belt,Front Wheeled Walker Comments Mobility Comments Pt CGA to SBA to stand to FWW. Without the FWW, pt needing MARCIAL for balance as tends to lean to the left and buckle at times. Pt much safer with FWW SBA. OT- Balance Assessment Sitting Balance and Reactions Static Sitting Balance Ability Normal Dynamic Sitting Balance Ability Good Standing Balance and Reactions Static Standing Balance Ability Fair Dynamic Standing Balance Ability Poor Comments Other Balance Tests/Deviations/Treatment Pt unsteady on his feet and at : this time best for pt to have a FWW for balance. M8 OT- IP Objective Assessments Start: 05/31/22 11:21 Freq: Status: Active Protocol: Document 05/31/22 10:48 [facility] (Rec: 05/31/22 12:31 [facility] [id number]) OT Gross Range of Motion Upper Extremity Range of Motion Assessment Within Functional Limits OT Strength Comments Strength Comments BUE from 3+/5 to 4-/5 M9 OT- IP Assessment and Plan Start: 05/31/22 11:21 Freq: Status: Active Protocol: Document 06/01/22 09:27 [facility] (Rec: 06/01/22 09:37 [facility] [id number]) OT Summary Assessment and Plan Potential Rehabilitation Potential Good Analytic Complexity at Evaluation Moderate Summary OT Impairments Strength,Balance,Functional Cognition,Functional Mobility, Dressing,Toileting,Bathing, Toilet Transfers,Shower Transfers,Activity Tolerance Progress Towards Goals Progressing Toward Goals Assessment Summary Pt not wanting to do any OT tasks , but just agreeable to walk in the room. Pt is unsteady on his feet without a device and tends to cross his legs while walking and needing cues to have a wider base of support. Pt will benefit from assist at home when medically stable. Goals Self-Feeding Goal Independent Grooming Goal Independent Dressing Goal Independent Toileting Goal Independent Bathing Goal Independent Toilet Transfer Goal Independent Shower Transfer Goal Independent Days to Meet Goals 5 Frequency of Treatment Frequency Of Treatment Once a Day Treatment Plan OT Treatment Plan ADL Training,Functional Mobility,Patient/Family Education,Discharge Planning Discharge Recommendations OT Discharge Recommendations Home with Assistance Transportation Needs at Discharge Private Vehicle
[2022-06-01] MEDS: FOLIC ACID 1 MG TABLET PO (09:59)
[2022-06-01] MEDS: MULTIVITAMIN 1 TABLET 1 TAB PO (10:00)
[2022-06-01] MEDS: NICOTINE 14 PATCH 14 MG TOP (10:00)
[2022-06-01] MEDS: PANTOPRAZOLE 40 MG VIAL IV (10:00)
[2022-06-01] MEDS: SODIUM CHLORIDE 0.9% FLUSH 10 ML IV ×2 (10:00→21:56)
[2022-06-01] MEDS: NICOTINE 21 MG PATCH TOP (11:32)
[2022-06-01 12:00] VITALS: BP 110/67; PULSE 97; RESP 20; TEMP 37; O2SAT 95
--- NOTE | 2022-06-01 12:42 | PT.IPTN ---
Current Diagnoses Anemia, unspecified (05/27/22) Physical Therapy Treatment Note M2 PT-IP Current Condition Start: 05/31/22 09:15 Freq: Status: Active Protocol: Document 05/31/22 09:15 [facility] (Rec: 05/31/22 09:36 [facility] [id number]) Physical Therapy Current Condition Current Condition Evaluation Date 05/31/22 Treatment Diagnosis Weakness; ETOH withdrawal; difficulty with ambulation Onset Date 05/27/22 M3 PT-IP Subjective Start: 05/31/22 09:15 Freq: Status: Active Protocol: Document 06/01/22 12:03 TS (Rec: 06/01/22 12:42 TS [id number]) Subjective Physical Therapy Visit Type Type Treatment Note Visit Start Time 11:35 Visit Stop Time 12:00 Total Visit Minutes 25 Number of [employer] MANAGER Visits 1 Physical Therapy Visit Comments Patient Comments Pt agreeable to PT session. Reported minor dizziness and SOB during ambulation. Patient Goals None specific. M4 PT-IP Mobility and Gait Start: 05/31/22 09:15 Freq: Status: Active Protocol: Document 06/01/22 12:03 TS (Rec: 06/01/22 12:42 TS [id number]) PT-Transfer Assessment Sit to and From Stand Sit to and from Stand Standby Assistance Equipment Transfer Assistive Device Gait Belt Comments Mobility Comments Pt found resting in chair and agreeable to PT session. Pt performed sit to stands x6 with BUE support SBA. Pt ambulated w/FWW 4x20' Philomena with swaying, ataxia and scissor gait. Pt performed narrow base stance w/ eyes open no support 30 secs with some swaying, eyes closed 3 secs with loss of balance to left side and narrow base with HT's with loss balance to left side. Pt has difficulty shifting weight to RLE. He reported minor dizziness and SOB during ambulation. Gait Assessment Gait Gait Assistance Required: Minimum Assistance Distance (Feet) 80 Assistive Devices Assistive Device Gait Belt Gait Deviations General Gait Pattern Ataxic,Decreased Stride Length ,Decreased Feet Clearance,Wide Based Gait Factors Limiting Gait Function Factors Limiting Gait Function Decreased Activity Tolerance, Decreased Sensation,Decreased Strength,Pain,Poor Balance Comments Gait Comments See mobility comments. Stair Climbing Assessment Comments Stair Climbing Comments Unable at this time PT-Balance Assessment Sitting Balance and Reactions Static Sitting Balance Ability Normal Dynamic Sitting Balance Ability Good Standing Balance and Reactions Static Standing Balance Ability Fair Dynamic Standing Balance Ability Poor Device Used none Comments Other Balance Tests/Deviations/Treatment Pt has difficulty maintaing : balance due to BLE ataxia and wbering through RLE. Functional Assessments Other Functional Tests Performed Narrow Base stance: Eyes open- 30 secs, no LOB EC- 3 secs LOB to left HT's- 1 LOB to left M5 PT-IP Objective Assessments Start: 05/31/22 09:15 Freq: Status: Active Protocol: Document 05/31/22 09:15 [facility] (Rec: 05/31/22 09:36 BC [id number]) Orientation Orientation/Cognition Level of Alertness Alert Orientation Name,Date,Place,Situation Language Function Ability No Deficits Noted Safety Awareness Decreased Safety Awareness Comments Bed alarm on after tx Gross Range of Motion Upper Extremity ROM Assessment Within Functional Limits Lower Extremity ROM Assessment Within Functional Limits Strength Upper Extremity Strength Assessment Bilaterally Impaired Shoulder 3/5 Elbow 4-/5 Wrist 4-/5 Hand weak grasp bilaterally, unable to maintain digit abduction against [place] Lower Extremity Strength Assessment Bilaterally Impaired Hip 3+ to 4-/5 Knee 3+/5 Ankle 3+/5 Comments Strength Comments Generally weak, no focal weaknesses noted. Coordination Assessment Gross Coordination Gross Coordination Impaired Assessment Finger to Nose Test Minimal Impairment Foot Tapping Test Minimal Impairment Heel on Donaldson Test Minimal Impairment Coordination Comments slow movements, occassional overshooting with dysmetria testing M6 PT-IP Treatment Start: 05/31/22 09:15 Freq: Status: Active Protocol: Document 06/01/22 12:03 TS (Rec: 06/01/22 12:42 TS [id number]) Physical Therapy Treatment Education Education Provided Safety Other Treatments Other Treatment Performed Pt educated ont he role of PT and returning him to his PLOF. M7 PT-IP Assessment and Plan Start: 05/31/22 09:15 Freq: Status: Active Protocol: Document 06/01/22 12:03 TS (Rec: 06/01/22 12:42 TS [id number]) PT Summary Assessment and Plan Potential Rehabilitation Potential Good Status of Condition at Evaluation Evolving Summary Impairments Pain,Strength,Balance, Coordination,Transfers,Gait, Activity Tolerance Progress Towards Goals Progressing Toward Goals Assessment Summary Pt performed sit to stands x6 SBA with BUE support. He ambulated w/FWW 4x20' increasing his distance from session with OT this morning, continues to display scissor gait and occasiional LOB. Static standing balance remians fair and poor w/ dynamic balance tasks. Discussed the use of a cane if he would return home and was agreeable to using one. PT continues to recommend SNF to improve activity tolerance and functional mobility. If pt improves mobility and balance while in hospital he may be safe to return home. 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 Days to Meet Goals 6 Frequency of Treatment Frequency Of Treatment Once a Day Treatment Plan Physical Therapy Treatment Plan Bed Mobility Training,Transfer Training,Gait Training, Therapeutic Exercise,Balance Retraining,Discharge Planning, Neuromuscular Re-ed Precautions Other Precautions Fall risk Recommendations To Nursing Amount of Assist Needed 1 Person Assist Discharge Recommendations PT Discharge Recommendations SNF Rehab Other Discharge Recommendations PT continues to recommend SNF to improve activity tolerance and functional mobility. If pt improves mobility and balance while in hospital he may be safe to return home. Transportation Needs at Discharge Wheelchair/Cabulance
--- NOTE | 2022-06-01 13:33 | P.PN_ITS ---
Subjective Subjective Interval history: Feeling somewhat better today. Abdomen feels a bit bigger today but no nausea and not much pain. Still weak with walking however. Up in chair and watching TV. Exam Vital Signs (past 8 hours): - 06/01/22 08:00 06/01/22 12:00 Temperature 98.6 F Pulse Rate 97 H Respiratory Rate 20 Blood Pressure 110/67 Pulse Oximetry 93 95 Oxygen Delivery Method Room Air Oxygen Flow Rate 0 Fraction of Inspired Oxygen 28 Oxygen Delivery Method Room Air Oxygen Flow Rate 0 Narrative Exam Narrative: Gen: Alert, oriented, chronically ill appearing male, NAD HEENT: normocephalic, atraumatic, conjunctiva clear, scleral icterus, oral mucosa pink and moist Neck: supple, full ROM, no JVD, trachea is midline Resp: Lungs CTA, non-labored breathing CV: RRR, no murmur or rubs Abd: soft, non-tender, normoactive BTs. Mild ascites Neuro: Alert and oriented X 4 w/no focal deficits. Speech clear and coherent. Extremities: bilateral pitting edema, no joint effusions. Psyche: normal mood and affect. Objective Labs 06/01/22 04:32 06/01/22 04:32 Labs: Laboratory Results - last 24 hr 06/01/22 06/01/22 04:32 04:32 WBC 12.5 H RBC 2.12 L Hgb 7.9 L Hct 25.0 L MCV 117.8 H MCH 37.2 H MCHC 31.6 RDW 25.7 H Plt Count 349 Neut % (Auto) Not Reportable Lymph % (Auto) Not Reportable [place] % (Auto) Not Reportable Eos % (Auto) Not Reportable Baso % (Auto) Not Reportable Lymph # (Auto) Not Reportable [place] # (Auto) Not Reportable Baso # (Auto) Not Reportable Total Counted 100 Seg Neutrophils % 66.0 Band Neutrophils % 6.0 Lymphocytes % (Manual) 9.0 L Monocytes % (Manual) 12.0 H Eosinophils % (Manual) 2.0 Basophils % (Manual) 2.0 H Metamyelocytes % 3.0 H Neutrophils # (Manual) 9000 H Nucleated RBCs 2 H RBC Morphology See below Polychromasia 2+ H Anisocytosis 3+ H Macrocytosis 2+ H Stomatocytes 2+ H Sodium 136 L Potassium 4.0 Chloride 106 Carbon Dioxide 26 BUN 9 Creatinine 0.55 L Estimated GFR > 60 BUN/Creatinine Ratio 16.4 Glucose 101 H Calcium 8.0 L Total Bilirubin 1.3 Conjugated Bilirubin 0.0 Unconjugated Bilirubin 0.1 AST 38 ALT 24 Alkaline Phosphatase 154 H C-Reactive Protein 1.1 H Total Protein 6.2 L Albumin 2.8 L Globulin 3.4 Albumin/Globulin Ratio 0.8 L Procalcitonin 9.10 H PFSH Medical History (Updated 05/28/22 @ 06:35 by Jin Romeo DO) Alcohol withdrawal Chronic pain syndrome Spinal stenosis TBI (traumatic brain injury) Family History (Updated 05/28/22 @ 01:59 by ASIM Best) Mother Brain tumor Father Chronic alcohol use Hx of liver transplant Staphylococcal pneumonia Social History household members: none Smoking Status: Current some day smoker alcohol intake: current Assessment & Plan Assessment & Plan narrative: Alcoholic cirrhosis, less likely alcoholic hepatitis with ascites -MELD-NA score is 13 -Hep panel negative. -PT/INR is normal -s/p 2L of fluid removal in the ER. Negative for SBP. Total protein 0.7 and albu min 0.3 (send out labs). Consistent with cirrhosis. -start low dose furosemide and aldactone today given improvement in BP for his ascites. Acute anemia, present on admission -Admission H and H was 7.1 and 21.8 respectively, dropped to 5.9 and got 2U PRBC with improvement and thus far stable. -Monitor H and H for need for transfusion -started on IV PPI, transition to oral today. He has had no evidence of active bleeding thus far. -recommend outpatient endoscopy ideally with GI. Acute hypokalemia, present on admission -Potassium was 2.4 and was repeated in the emergency department and appeared to receive a total of 120 mEq of potassium, now normal at 4.6 -repeat potassium on admission was 2.6, repleted on admission -likely due to aggressive diuresis and poor nutritional state Presumed infectious process/ bacterial infection, acute and present on admission -continue on zosyn, markedly elevated procalcitonin continuing to improve. Possible urinary source most likely? but no etiology has since been found. History of alcohol withdrawal, currently not in withdrawal -CIWA protocol -he started on thiamine, folic acid and a multivitamin -has been on 50 mg TID of librium since HD#1, start taper today, will be able to wean in a couple of days. Tobacco dependence, present on admission -patient states he smokes a pack of cigarettes per day and will receive transdermal Nicoderm patch 21 mcg change daily Follow labs and clinically. Dispo: probable discharge home in the next couple of days, depending on ambulation when off of librium and if any changes in possible in infectious process or anemia. Time Spent With Patient Critical Care time: I spent a total of [] minutes of critical care time on this patient's care today; this time is exclusive of procedural time.
[2022-06-01] MEDS: GABAPENTIN 300 MG CAPSULE PO ×2 (14:26→21:53)
[2022-06-01 16:00] VITALS: O2SAT 95
[2022-06-01 20:00] VITALS: BP 116/79; PULSE 98; RESP 17; TEMP 37.2; O2SAT 94
[2022-06-01] MEDS: PANTOPRAZOLE DR 40 MG TABLET PO (21:53)
[2022-06-02] VITALS (7 sets, daily range): BP systolic 103–113; BP diastolic 62–78; PULSE 89–106; RESP 18–20; TEMP 36.6–36.8; O2SAT 92–96
[2022-06-02] MEDS: PANTOPRAZOLE DR 40 MG TABLET PO ×2 (06:08→21:11)
[2022-06-02] MEDS: PIPERACILLIN/TAZO 3.375 GM in SODIUM CHLORIDE 0.9% 100 ML IV ×2 (06:08→14:38)
[2022-06-02] MEDS: OXYCODONE IR 5 MG TABLET PO ×3 (06:12→21:02)
[2022-06-02] MEDS: GABAPENTIN 300 MG CAPSULE PO ×3 (08:20→21:03)
[2022-06-02] MEDS: FOLIC ACID 1 MG TABLET PO (08:20)
[2022-06-02] MEDS: MULTIVITAMIN 1 TABLET 1 TAB PO (08:20)
[2022-06-02] MEDS: chlordiazePOXIDE 25 MG CAPSULE PO (08:21)
[2022-06-02] MEDS: SPIRONOLACTONE 25 MG TABLET PO (08:21)
[2022-06-02] MEDS: FUROSEMIDE 20 MG/2 ML VIAL IV (08:21)
[2022-06-02] MEDS: NICOTINE 21 MG PATCH TOP (08:23)
[2022-06-02] MEDS: ONDANSETRON 4 MG/2 ML INJ IV ×2 (08:27→21:02)
[2022-06-02] MEDS: ACETAMINOPHEN 325 MG TABLET 650 MG PO ×2 (08:27→16:12)
[2022-06-02] MEDS: SODIUM CHLORIDE 0.9% FLUSH 10 ML IV ×2 (08:42→21:10)
--- NOTE | 2022-06-02 10:09 | PT-IP ANOTE ---
Per nursing Pt is not appropriate at this time for PT due to low BP 89/50. Will check back in the afternoon.
--- NOTE | 2022-06-02 10:37 | PC.NURSE ---
patient watching TV, BP 82/53, then 91/58 HR 96 provider aware, no new orders.
--- NOTE | 2022-06-02 15:11 | P.PN_ITS ---
Subjective Subjective Interval history: Stopped librium this morning given patient was well appearing. Still weak with walking, did not want to work with PT today due to fatigue. BP a bit soft, will stop diuretics. Exam Vital Signs (past 8 hours): - 06/02/22 08:21 06/02/22 08:21 06/02/22 08:21 Temperature 98.3 F Pulse Rate 106 H Respiratory Rate 18 Blood Pressure 107/68 Pulse Oximetry 96 96 Oxygen Delivery Method Room Air Room Air Oxygen Flow Rate 06/02/22 12:00 06/02/22 12:41 Temperature 97.8 F Pulse Rate 94 H Respiratory Rate 18 Blood Pressure 103/62 Pulse Oximetry 96 94 Oxygen Delivery Method Room Air Oxygen Flow Rate 0 Fraction of Inspired Oxygen 28 Oxygen Delivery Method Room Air Oxygen Flow Rate 0 Narrative Exam Narrative: Gen: Alert, oriented, chronically ill appearing male, NAD HEENT: normocephalic, atraumatic, conjunctiva clear, scleral icterus, oral mucosa pink and moist Neck: supple, full ROM, no JVD, trachea is midline Resp: Lungs CTA, non-labored breathing CV: RRR, no murmur or rubs Abd: soft, non-tender, normoactive BTs. Mild ascites Neuro: Alert and oriented X 4 w/no focal deficits. Speech clear and coherent. Extremities: bilateral pitting edema, no joint effusions. Psyche: normal mood and affect. Objective Labs 06/01/22 04:32 06/01/22 04:32 [facility] Medical History (Updated 05/28/22 @ 06:35 by Jin Romeo DO) Alcohol withdrawal Chronic pain syndrome Spinal stenosis TBI (traumatic brain injury) Family History (Updated 05/28/22 @ 01:59 by ASIM Best) Mother Brain tumor Father Chronic alcohol use Hx of liver transplant Staphylococcal pneumonia Social History household members: none Smoking Status: Current some day smoker alcohol intake: current Assessment & Plan Assessment & Plan narrative: Alcoholic cirrhosis, less likely alcoholic hepatitis with ascites -MELD-NA score is 13 -Hep panel negative. -PT/INR is normal -s/p 2L of fluid removal in the ER. Negative for SBP. Total protein 0.7 and albumin 0.3 (send out labs). Consistent with cirrhosis. -started low dose furosemide and aldactone but weaker with soft BP, will stop diuretic threapy. Acute anemia, present on admission -Admission H and H was 7.1 and 21.8 respectively, dropped to 5.9 and got 2U PRBC with improvement and thus far stable. -Monitor H and H for need for transfusion -started on IV PPI, transition to oral today. He has had no evidence of active bleeding thus far. -recommend outpatient endoscopy ideally with GI. Acute hypokalemia, present on admission -Potassium was 2.4 and was repeated in the emergency department and appeared to receive a total of 120 mEq of potassium, now normal at 4.6 -repeat potassium on admission was 2.6, repleted on admission -likely due to aggressive diuresis and poor nutritional state Presumed infectious process/ bacterial infection, acute and present on admission -continued on zosyn, markedly elevated procalcitonin continuing to improve. Possible urinary source most likely? but no etiology has since been found. This will be stopped today given no obvious etiology found and a 6 day course seems sufficient for most underlying infectious etiologies. History of alcohol withdrawal, currently not in withdrawal -CIWA protocol -he started on thiamine, folic acid and a multivitamin -has been on 50 mg TID of librium since HD#1, started rapid taper and will monitor for withdrawal today given abrupt taper, now off of librium. Tobacco dependence, present on admission -patient states he smokes a pack of cigarettes per day and will receive transde rmal Nicoderm patch 21 mcg change daily Follow labs and clinically. Dispo: probable discharge home in the next couple of days, depending on ambulation and improvement in soft BP. Time Spent With Patient Critical Care time: I spent a total of [] minutes of critical care time on this patient's care t amber; this time is exclusive of procedural time.
--- NOTE | 2022-06-02 15:15 | PT-IP ANOTE ---
Pt was orthostatic this morning with PT and therapist was not able to work with him per nurse request. Per nurse BP had improved in afternoon and he could resume PT. Pt refused x2 this afternoon due to not feeling up to doing PT. Will check in tomorrow 06/03/22.
--- NOTE | 2022-06-02 15:45 | OT.IP.TRT ---
Current Diagnoses Anemia, unspecified (05/27/22) Occupational Therapy Treatment Note M2 OT-IP Current Condition Start: 05/31/22 11:21 Freq: Status: Active Protocol: Document 05/31/22 10:48 [facility]3] (Rec: 05/31/22 12:31 [facility]3] [id number]) Occupational Therapy Current Condition Current Condition Evaluation Date 05/31/22 Treatment Diagnosis Acute liver failure/ETOH withdrawl M3 OT- IP Subjective and Pain Start: 05/31/22 11:21 Freq: Status: Active Protocol: Document 06/02/22 15:45 [facility]3] (Rec: 06/02/22 17:07 [facility]3] [id number]) OT- Subjective Occupational Therapy Visit Type Type Treatment Note Visit Start Time 15:45 Visit Stop Time 15:57 Total Visit Minutes 12 Occupational Therapy Visit Comments Patient Comments Pt needing encouragement and then agreed to get up. Patient/Caregiver Goals TO get better. OT Pain Assessment Pain When Pain Assessed At Rest Pain Present Pain Present Denied Pain M4 OT- IP ADL's Start: 05/31/22 11:21 Freq: Status: Active Protocol: Document 05/31/22 10:48 [facility]3] (Rec: 05/31/22 12:31 [facility]3] [id number]) OT [id number] Comments OT Self-Feeding Comments Not at meal time. OT ADL-Grooming Comments OT Grooming Comments pt refused OT ADL-Oral Care Comments Oral Care Comments pt refused OT ADL-Dressing General Eval Lower Body Dressing Ability Standby Assistance Comments OT Dressing Comments Pt able to derrick/doff is socks in long sitting on the bed. OT ADL-Toileting Comments OT Toileting Comments pt not having to go at this time OT ADL-Bathing Comments OT Bathing Comments not performed M5 OT- IP IADL's Start: 05/31/22 11:21 Freq: Status: Active Protocol: Document 05/31/22 10:48 [facility]3] (Rec: 05/31/22 12:31 [facility]3] [id number]) OT-Instrumental Activities of Daily Living Home Safety Awareness Home Safety Comments Pt lives in his that is not working at this time. Pt states does not shower and goes out to buy food for his specific diet, pt did not specify what kind of diet. M6 OT- IP Functional Cognition Start: 05/31/22 11:21 Freq: Status: Active Protocol: Document 06/01/22 09:27 [facility]3] (Rec: 06/01/22 09:37 [facility]3] [id number]) Cognitive Factors Limiting Selfcare Function Cognitive Ability Level of Alertness Alert Patient Orientation Name,Situation Attention Span Ability Capable of Focused Attention, Capable of Sustained Attention Ability to Follow Commands Able to Follow One Step Commands Cognitive Comments Cognitive Assessment Comments Pt still not wanting to do ADL needs but agreed to get up and walk in the room and also requesting coffee. VC for FWW safety and vc to keep his feet apart as he tends to cross his legs. M7 OT- IP Mobility and Balance Start: 05/31/22 11:21 Freq: Status: Active Protocol: Document 06/02/22 15:45 [facility]3] (Rec: 06/02/22 17:07 [facility]3] [id number]) OT- Bed Mobility Assessment Supine to Sit Supine to Sit Assist Standby Assistance Sit to Supine Sit to Supine Assist Standby Assistance OT-Transfer Assessment Sit to and From Stand Sit to and from Stand Contact Guard Assistance Transfers Transfer Ability Contact Guard Assistance, Minimal Assistance Technique Transfer Destination Bed Transfer Technique Stand Step Pivot Devices Transfer Assistive Devices Gait Belt,Front Wheeled Walker Comments Mobility Comments CGA to stand and MARCIAL for balance with FWW, pt still having difficulty to keep his feet from crossing over and very unsteady on his feet and needing physical assist for his balance. OT- Balance Assessment Sitting Balance and Reactions Static Sitting Balance Ability Normal Dynamic Sitting Balance Ability Good Standing Balance and Reactions Static Standing Balance Ability Fair Dynamic Standing Balance Ability Poor Comments Other Balance Tests/Deviations/Treatment Pt still very unsteady o his : feet and leans to the left and heavy use of his arms on the FWW for balance as well. M8 OT- IP Objective Assessments Start: 05/31/22 11:21 Freq: Status: Active Protocol: Document 05/31/22 10:48 [facility]3] (Rec: 05/31/22 12:31 [facility]3] [id number]) OT Gross Range of Motion Upper Extremity Range of Motion Assessment Within Functional Limits OT Strength Comments Strength Comments BUE from 3+/5 to 4-/5 M9 OT- IP Assessment and Plan Start: 05/31/22 11:21 Freq: Status: Active Protocol: Document 06/02/22 15:45 [facility]3] (Rec: 06/02/22 17:07 [facility]3] [id number]) OT Summary Assessment and Plan Potential Rehabilitation Potential Good Analytic Complexity at Evaluation Moderate Summary OT Impairments Strength,Balance,Functional Cognition,Functional Mobility, Dressing,Toileting,Bathing, Toilet Transfers,Shower Transfers,Activity Tolerance Progress Towards Goals Slow Progress due to Medical Issues,Slow Progress due to Activity Tolerance Assessment Summary Pt still not wanting to do any OT needs as states able to use the toilet with nursing earlier. Pt still very unsteady on his feet and is a high fall risk. Pt states has a very high bed in his RV and is afraid that he is too unsteady to be able to get around at this time. Pt would therefore benefit from skilled rehab versus home with assist and home health. Goals Dressing Goal Independent Toileting Goal Independent Bathing Goal Independent Toilet Transfer Goal Independent Shower Transfer Goal Independent Days to Meet Goals 10 Frequency of Treatment Frequency Of Treatment Once a Day Treatment Plan OT Treatment Plan ADL Training,Functional Mobility,Patient/Family Education,Discharge Planning Discharge Recommendations OT Discharge Recommendations Home with Assistance,Home Health,SNF Rehab,Home vs SNF Transportation Needs at Discharge Private Vehicle,Wheelchair/ Cabulance
[2022-06-02] MEDS: LORazepam 2 MG/ML INJ IV (21:23)
[2022-06-03] VITALS: O2SAT 97
[2022-06-03 00:25] VITALS: PULSE 88; RESP 20
[2022-06-03 04:00] VITALS: BP 116/62; PULSE 98; RESP 18; TEMP 36.8; O2SAT 90; O2SAT 96
[2022-06-03 04:31] LABS: Alanine Aminotransferase 23 IU/L (<50); Albumin Globulin Ratio 0.8 (1.0-2.8); Alkaline Phosphatase 129 U/L (38-126); Aspartate Aminotransferase 34 IU/L (17-59); BUN Creatinine Ratio 18.5 (6-22); Bilirubin Total 1.3 mg/dL (0.2-1.3); Blood Urea Nitrogen 10 mg/dL (9-20); Calcium 8.4 mg/dL (8.4-10.2); Carbon Dioxide 28 mmol/L (22-32); Chloride 107 mmol/L (98-107); Estimated Glomerular Filt Rate > 60 mL/min (>60); Globulin 3.7 g/dL (1.7-4.1); Glucose 106 mg/dL (70-100); HEMOLYSIS < 15 (0-50); Magnesium 2.2 mg/dL (1.6-2.3); Potassium 4.2 mmol/L (3.4-5.1); Sodium 137 mmol/L (137-145); Total Protein 6.7 g/dL (6.3-8.2)
[2022-06-03 04:32] LABS: Hematocrit 27.8 % (41-53); Mean Corpuscular HGB Conc 32.6 % (30-36); Mean Corpuscular Hemoglobin 37.1 PG (26-34); Mean Corpuscular Volume 113.9 fL (80-100); Platelet Count 372 X10^3/uL (150-400); Red Blood Cell Count 2.44 X10^6/uL (4.5-5.9); Red Cell Distribution Width 24.1 % (11.6-14.8); White Blood Cell Count 8.9 X10^3/uL (4.5-11.0)
[2022-06-03 04:38] LABS: Add Manual Diff / Slide Review YES
[2022-06-03 05:03] LABS: Neutrophils Absolute Manual 5785 /uL (3000-5900); Polychromasia 1+; Total Cells Counted 100
[2022-06-03 05:04] LABS: Anisocytosis 2+; Macrocytosis 2+; Stomatocytes 2+
[2022-06-03] MEDS: PANTOPRAZOLE DR 40 MG TABLET PO (06:52)
--- NOTE | 2022-06-03 08:44 | CM.DPC ---
Addendum entered by SAL Gomes 06/03/22 12:30: ADD: MIN called [employer] and confirmed they can transport pt around 1300 ED entrance from hospital to [facility] [address] to [facility] for about $14. MIN completed Medical [employer] [place] form and made a copy for [employer] and provided form to RN and updated and discussed importance of wedding transportation driver getting the form at pickup. Staff helping to get scrubs for pt for d/c and pt to eat lunch prior to fruit picker. MIN called [employer] Anthony and updated on pt d/c today and he confirms he also reached out to pt's casemanager on Tuesday and she plans to f/u with pt and maybe assist with RV repairs. SAL Gomes Original Note: DCP Discharge Per MD, pt likely stable to discharge today and PT/OT have worked with pt and he is a little below baseline with his steadiness but due to pt's Stra[employer] Medicaid he does not qualify for HH or SNF. MIN met bedside with pt and explained role and updated on likely d/c and he confirms he plans to d/c back to his RV and requests assist with taxi to his [facility] and then to the Mechanics ([facility] [employer] [facility] that are next door to each other) as he plans to determine which can fix his RV. MIN discussed also calling Anthony, [employer], to potentially check in on pt and help brainstorm ideas to best meet his needs. Pt is agreeable to this as he states Anthony is the one who let [employer] know that the RV was his and no abandoned but pt was in the hospital. MIN called Medicaid transport and confirmed that pt does not have Medicaid transportation benefits. Plan: MIN to follow for setting up transport for pt around lunchtime via taxi voucher with [employer] to the bank and then the mechanic welder truck driver. SAL Gomes
--- NOTE | 2022-06-03 08:52 | PM.DS.1 ---
History of Present Illness History of Present Illness Date Patient Seen: 06/03/22 Time Patient Seen: 08:52 Chief complaint: LE weakness, swelling, feeling poorly Narrative: Per admitting provider, Eros Beavers is a 51-year-old male smoker and heavy drinker, states previously as much as 0.5 gal of vodka daily presented to the ED with complaints of swelling in his bilateral lower extremities that has become profoundly worse over the past week with difficulty walking.? Additionally he complains of a swollen abdomen which is becoming tender.? He states he has hot and cold spells w/a runny nose and productive cough w/thick green mucus.? He has had nausea and vomiting for the past 4 days.? He states he has new onset urinary and bowel incontinence and endorses hematuria.? He states that he had been seen and evaluated at an outside clinic earlier in the week and was found to have low potassium and was given potassium supplementation which he has been trying to take.? He states that though he has been a drinker for many years and has gone through withdrawals even seizures in the past he is never had a swollen abdomen, denies having liver failure or a paracentesis. In the ED, they performed a paracentesis and drained off 3 liters. Abdominal ultrasound reported moderate amount of ascites. CT of the abdomen and pelvis indicated 1, nodular hepatic contour suggestive of cirrhosis; ill-defined hypodense wedge-shaped region in the posterior right hepatic lobe... Associated hepatic mass can not be excluded recommending follow-up evaluation with a liver protocol MRI when feasible, moderate amount of ascites and small bilateral pleural effusions right greater than left with associated bibasilar compressive atelectasis. He is afebrile, blood pressure 108/65 heart rate 106 respiratory rate 18 oxygen saturation of 93% on 2 L he weighs 77.5 kg with a BMI of 24.5. He has an elevated white count of 16.4 hemoglobin is 7.1 hematocrit 21.8 normal platelet count he is a left shift he has not had normal smear, PT INR is normal he initially presented with a potassium of 2.4 which was repleted in the emergency department bilirubin 2.5 AST 90 ALT 39 alk-phos 336 normal ammonia level albumin 2.9 lipase is normal alcohol level was within normal limits COVID-19 PCR is negative and acute hepatitis panel is pending. Patient's blood type is A positive with negative antibodies. Discharge Providers Provider Date of admission: 05/27/22 23:15 Discharge Date: 06/03/22 Primary care physician: Santos Morgan MD Consults: 05/27/22 18:03 Consult to [facility] Property Condition Assessor Stat Comment: 05/28/22 01:21 Consult to [facility] Property Condition Assessor Routine Comment: 05/29/22 14:29 Consult to Physical Therapy Evaluate & Treat Comment: Physician Instructions: Evaluate and Treat 05/29/22 14:30 Consult to Occupational Therapy Evaluate & Treat Comment: Physician Instructions: Evaluate and treat Discharge provider: Pranav Braswell DO Summary Hospital Course Discharge Diagnosis: Please see hospital course by problem list noted below Hospital Course: Alcoholic cirrhosis, less 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 Cirrhosis likely in setting of EtoH use. -Hep panel was negative. -PT/INR is normal -s/p 2L of fluid removal in the ER. Negative for SBP. Total protein 0.7 and albumin 0.3 (send out labs). Consistent with cirrhosis. -he had no accumulation of ascites after removal. Attempted to start oral furosemide and aldactone, but only became hypotensive and weak. -patient remained weak but slowly improved with PT over the course of admission until he was able to be discharged home. -recommend alcohol cessation, outpatient follow up with GI or hepatology. Acute anemia, present on admission, macrocytic. -Admission H and H was 7.1 and 21.8 respectively, dropped to 5.9 and got 2U PRBC with improvement and only improved over the course of admission. -started on IV PPI, transitioned to oral today. He had no evidence of active bleeding during admission, though would recommend outpatient endoscopy given his cirrhosis this should be at a center with ability to manage possible varices. -recommend outpatient endoscopy ideally with GI as noted above. -continue PPI BID as an outpatient, Hg on discharge 9.0. Started on folic acid and multivitamin as well given elevated MCV. Acute hypokalemia, present on admission -Potassium was 2.4 and was repeated in the emergency department and appeared to receive a total of 120 mEq of potassium, now normal at 4.6 -likely due to aggressive diuresis and poor nutritional state initially. Did improve overtime. Presumed infectious process/ bacterial infection, acute and present on admission -continued on zosyn over the course of his admission due to markedly elevated procalcitonin that continued to improve. Possible urinary source most likely? but no etiology was found. He completed 6 days of antibiotics, which were discontinued and he then had no recurrence of leukocytosis. History of alcohol withdrawal, currently not in withdrawal -patient was treated for alcohol withdrawal with librium, which was tapered over the course of his admission. He had no evidence of withdrawal, off of librium for >24 hours prior to discharge. Tobacco dependence, present on admission -patient states he smokes a pack of cigarettes per day and will receive transdermal Nicoderm patch 21 mcg change daily Time Spent with Patient Time spent: Greater than 30 minutes Exam Vital Signs (past 8 hours): - 06/03/22 04:00 06/03/22 04:00 Temperature 98.2 F Pulse Rate 98 H Respiratory Rate 18 Blood Pressure 116/62 Pulse Oximetry 90 L 96 Oxygen Delivery Method Room Air Fraction of Inspired Oxygen 28 Oxygen Delivery Method Room Air Oxygen Flow Rate 0 Narrative Exam Narrative: Gen: Alert, oriented, chronically ill appearing male, NAD HEENT: normocephalic, atraumatic, conjunctiva clear, scleral icterus, oral mucosa pink and moist Neck: supple, full ROM, no JVD, trachea is midline Resp: Lungs CTA, non-labored breathing CV: RRR, no murmur or rubs Abd: soft, non-tender, normoactive BTs. Mild ascites Neuro: Alert and oriented X 4 w/no focal deficits. Speech clear and coherent. Extremities: bilateral pitting edema improved, no joint effusions. Psyche: normal mood and affect. Objective Labs 06/03/22 04:08 06/03/22 04:08 Labs: Laboratory Results - last 24 hr 06/03/22 06/03/22 04:08 04:08 WBC 8.9 RBC 2.44 L Hgb 9.0 L Hct 27.8 L MCV 113.9 H D MCH 37.1 H MCHC 32.6 RDW 24.1 H Plt Count 372 Neut % (Auto) Not Reportable Lymph % (Auto) Not Reportable [place] % (Auto) Not Reportable Eos % (Auto) Not Reportable Baso % (Auto) Not Reportable Lymph # (Auto) Not Reportable [place] # (Auto) Not Reportable Baso # (Auto) Not Reportable Total Counted 100 Seg Neutrophils % 63.0 Band Neutrophils % 2.0 L Lymphocytes % (Manual) 15.0 L Atypical Lymphs % 1.0 H Monocytes % (Manual) 17.0 H Basophils % (Manual) 1.0 Metamyelocytes % 1.0 H Neutrophils # (Manual) 5728 RBC Morphology See below Polychromasia 1+ H Anisocytosis 2+ H Macrocytosis 2+ H Stomatocytes 2+ H Sodium 137 Potassium 4.2 Chloride 107 Carbon Dioxide 28 BUN 10 Creatinine 0.54 L Estimated GFR > 60 BUN/Creatinine Ratio 18.5 Glucose 106 H Calcium 8.4 Magnesium 2.2 Total Bilirubin 1.3 AST 34 ALT 23 Alkaline Phosphatase 129 H Total Protein 6.7 Albumin 3.0 L Globulin 3.7 Albumin/Globulin Ratio 0.8 L PFSH Medical History (Updated 05/28/22 @ 06:35 by Jin Romeo DO) Alcohol withdrawal Chronic pain syndrome Spinal stenosis TBI (traumatic brain injury) Family History (Updated 05/28/22 @ 01:59 by ASIM Best) Mother Brain tumor Father Chronic alcohol use Hx of liver transplant Staphylococcal pneumonia Social History household members: none Smoking Status: Current some day smoker alcohol intake: current Discharge Plan Discharge Plan Patient Disposition: Home Discharge orders & Medications Prescriptions: New pantoprazole 40 mg Tablet,Delayed Release (Dr/Ec) 40 mg PO 0700,2100 30 Days Qty: 60 0RF gabapentin [Neurontin] 300 mg Capsule 300 mg PO TID 30 Days Qty: 90 0RF folic acid 1 mg Tablet 1 mg PO DAILY 30 Days Qty: 30 0RF multivitamin with folic acid [Tab-A-Martina] 400 mcg Tablet 1 tab PO DAILY 30 Days Qty: 30 0RF oxycodone 10 mg tablet 10 mg PO Q8H PRN (Reason: Pain, Moderate (4-6)) 7 Days Qty: 15 0RF Follow up/Referrals: Santos Morgan MD [Primary Care Provider] - Diet/Activity/Treatments Diet: Diet as Tolerated Activity: as tolerated with walker Visit Report/Discharge Packet Stand Alone Forms: Patient Portal/API, Stroke Signs & Symptoms Discharge Data Primary Care Provider: Santos Morgan
[2022-06-03] MEDS: MULTIVITAMIN 1 TABLET 1 TAB PO (09:22)
[2022-06-03] MEDS: GABAPENTIN 300 MG CAPSULE PO (09:22)
[2022-06-03] MEDS: FOLIC ACID 1 MG TABLET PO (09:22)
[2022-06-03] MEDS: NICOTINE 21 MG PATCH TOP (09:22)
[2022-06-03] MEDS: OXYCODONE IR 5 MG TABLET PO ×2 (09:27→12:37)
--- NOTE | 2022-06-03 11:31 | PT.IPTN ---
Current Diagnoses Anemia, unspecified (05/27/22) Physical Therapy Treatment Note M2 PT-IP Current Condition Start: 05/31/22 09:15 Freq: Status: Discharge Protocol: Document 06/03/22 11:10 SP (Rec: 06/03/22 19:34 SP [id number]) Physical Therapy Current Condition Current Condition Evaluation Date 05/31/22 Treatment Diagnosis Weakness; ETOH withdrawal; difficulty with ambulation Onset Date 05/27/22 M3 PT-IP Subjective Start: 05/31/22 09:15 Freq: Status: Discharge Protocol: Document 06/03/22 11:10 SP (Rec: 06/03/22 19:34 SP [id number]) Subjective Physical Therapy Visit Type Type Treatment Note Visit Start Time 11:10 Visit Stop Time 11:31 Total Visit Minutes 21 Number of BALLING HEAD TENDER Visits 1 Physical Therapy Visit Comments Patient Comments Pt willing to work with therapy. Patient Goals None specific. Therapy Pain Assessment Pain When Pain Assessed At Rest Pain Present Pain Present Pain Reported Location Bilateral Leg Intensity 6 Scale Used thighs Description With Movement M4 PT-IP Mobility and Gait Start: 05/31/22 09:15 Freq: Status: Discharge Protocol: Document 06/03/22 11:10 SP (Rec: 06/03/22 19:34 SP [id number]) PT-Bed Mobility Assessment Supine to Sit Supine to Sit Independent Sit to Supine Sit to Supine Independent PT-Transfer Assessment Sit to and From Stand Sit to and from Stand Standby Assistance,Use of Upper Extremities Equipment Transfer Assistive Device None,Gait Belt,Front Wheeled Walker Transfers Transfer Destination Bed,Chair Transfer Technique pt ambulated no AD, FWW Transfer Ability Level of Assist Standby Assistance,Contact Guard Assistance,Use of Upper Extremities Comments Mobility Comments Pt up walking around room when arrived, noted trunk sways, occasional scissor stepping not using AD, no LOB. BALLING HEAD TENDER provided gait belt, gait around room and hallway approx 140 ft, cues HTs with noted slow pacing, heavy stepping, trunk sway L contact wall for self recovery, cued for posturing, core fac and soft stepping improved stability. Education for safety use of SPC, when returned to room use SPC still noted trunk sway and states no funds or access to SPC, BALLING HEAD TENDER recommended use of FWW, short distance around room demonstrated Mod I. Asc/ descend 2 porttable step R HR to assimulate climb into RV SBA. Static stand balance assessment: NBOS HTs and EC up to 30 sec little sway but no LOB, stagger stance LOB Min A recovery. Recommending home w/ FWW when medically cleared. BALLING HEAD TENDER dispensed FWW. Gait Assessment Gait Gait Assistance Required: Contact Guard Assist,Minimum Assistance,1 Person Assist Distance (Feet) 140 Assistive Devices Assistive Device None,Gait Belt,Straight Cane, Front Wheeled Walker Gait Deviations General Gait Pattern Antalgic,Decreased Stride Length,Decreased Feet Clearance,Lateral Trunk Lean, Narrow Based Gait Factors Limiting Gait Function Factors Limiting Gait Function Decreased Activity Tolerance, Decreased Strength,Pain,Poor Balance,Poor Safety Awareness Comments Gait Comments see mobility comments Stair Climbing Assessment Evaluation Level of Assist On Stairs Standby Assistance Devices Stair Climbing Assistive Devices Right Railing Technique/Endurance Stair Climbing Direction Ascend and Descend Stair Climbing Technique Step to Step Number of Steps Climbed 1 Stair Climbing Set # Repetitions (reps) 2 Comments Stair Climbing Comments Step to patterning x2 R HR, forward and back down to assimuate enter front and back door RV. PT-Balance Assessment Sitting Balance and Reactions Static Sitting Balance Ability Normal Dynamic Sitting Balance Ability Normal Standing Balance and Reactions Static Standing Balance Ability Good Dynamic Standing Balance Ability Fair Device Used none, Good w/ FWW Comments Other Balance Tests/Deviations/Treatment see mobility comments : Functional Assessments Other Functional Tests Performed NBOS: HTs, EC 30 sec Stagger stance: HTs LOB Min A recover M5 PT-IP Objective Assessments Start: 05/31/22 09:15 Freq: Status: Discharge Protocol: Document 05/31/22 09:15 BC (Rec: 05/31/22 09:36 [id number]) Orientation Orientation/Cognition Level of Alertness Alert Orientation Name,Date,Place,Situation Language Function Ability No Deficits Noted Safety Awareness Decreased Safety Awareness Comments Bed alarm on after tx Gross Range of Motion Upper Extremity ROM Assessment Within Functional Limits Lower Extremity ROM Assessment Within Functional Limits Strength Upper Extremity Strength Assessment Bilaterally Impaired Shoulder 3/5 Elbow 4-/5 Wrist 4-/5 Hand weak grasp bilaterally, unable to maintain digit abduction against [place] Lower Extremity Strength Assessment Bilaterally Impaired Hip 3+ to 4-/5 Knee 3+/5 Ankle 3+/5 Comments Strength Comments Generally weak, no focal weaknesses noted. Coordination Assessment Gross Coordination Gross Coordination Impaired Assessment Finger to Nose Test Minimal Impairment Foot Tapping Test Minimal Impairment Heel on Donaldson Test Minimal Impairment Coordination Comments slow movements, occassional overshooting with dysmetria testing M6 PT-IP Treatment Start: 05/31/22 09:15 Freq: Status: Discharge Protocol: Document 06/03/22 11:10 SP (Rec: 06/03/22 19:34 SP [id number]) Physical Therapy Treatment Education Education Provided Safety M7 PT-IP Assessment and Plan Start: 05/31/22 09:15 Freq: Status: Discharge Protocol: Document 06/03/22 11:10 SP (Rec: 06/03/22 19:34 SP [id number]) PT Summary Assessment and Plan Potential Rehabilitation Potential Good Status of Condition at Evaluation Evolving Summary Impairments Pain,Strength,Balance, Coordination,Transfers,Gait, Activity Tolerance Progress Towards Goals Progressing Toward Goals,Slow Progress due to Pain,Slow Progress due to Activity Tolerance Assessment Summary Pt requirs CG/Min A gait without AD, sBA w/ SPC, Mod I w/ FWW. BALLING HEAD TENDER dispensed FWW and pt is ok to return home when medically cleared. Goals Transfer Goal Independent Gait Goal Independent,Cane Gait Distance 250 Other Goals *Step up single curb for community navigation with SPC and Modif Ind *Step up high step to enter RV combine driver door with modif Ind. Days to Meet Goals 6 Frequency of Treatment Frequency Of Treatment Once a Day Treatment Plan Physical Therapy Treatment Plan Bed Mobility Training,Transfer Training,Gait Training, Therapeutic Exercise,Balance Retraining,Discharge Planning, Neuromuscular Re-ed Other Recommendations and Next Treatment balance activities, gait LRAD Focus Precautions Other Precautions Fall risk Recommendations To Nursing Amount of Assist Needed Standby Assistance,1 Person Assist Discharge Recommendations PT Discharge Recommendations Home with Assistance Equipment Needed for Home Before FWW-dispensed Discharge Transportation Needs at Discharge Private Vehicle
[2022-06-03 12:00] VITALS: BP 118/74; PULSE 104; RESP 17; TEMP 36.2; O2SAT 95
== END 2022-06-03 12:53 | disposition home or self-care (01) | DRG 434 ==
LOC: ED 19:36 → AC 23:15
PROVIDERS: Emergency Medicine; Internal Medicine; Neuromusculoskeletal Medicine, Sports Medicine; Admitting Provider Nurse Practitioner Family; Emergency Provider Emergency Medicine; PCP Specialist; Referring Provider Emergency Medicine; Visit Provider Nurse Practitioner Family
DX: K70.31 Alcoholic cirrhosis of liver with ascites (principal); E87.6 Hypokalemia; D64.9 Anemia, unspecified; F10.90 Alcohol use, unspecified, uncomplicated; A49.9 Bacterial infection, unspecified; G89.4 Chronic pain syndrome; F17.210 Nicotine dependence, cigarettes, uncomplicated; Y90.0 Blood alcohol level of less than 20 mg/100 ml; Z20.822 Contact with and (suspected) exposure to COVID-19
CPT/HCPCS: 36415; 36430; 49083; 74177; 76705; 80048; 80053; 80074; 80076; 80320; 81001; 81003; 82140; 83605; 83690; 83735; 84145; 85007; 85025; 85610; 85730; 86140; 86850; 86900; 86901; 87040; 87070; 87075; 87205; 87635; 89051; 93005; 94760; 96365; 96366; 96367; 96375; 97112; 97116; 97162; 97166; 97530; 99285; C9803; P9016; C9113; J0696; J1940; J2060; J2405; J2543; Q9967

== ENCOUNTER 2022-06-27 10:30 | Emergency (ER) | payer SELFPAY ==
[2022-05-28 00:52] VITALS: BMI 24.5
[2022-06-27] VITALS (27 sets, daily range): BP systolic 102–127; BP diastolic 55–75; PULSE 55–99; RESP 18; TEMP 36.7; O2SAT 94–100; BMI 24.6
--- NOTE | 2022-06-27 10:45 | DI.RAD.S_ITS ---
PROCEDURE: XR CHEST 1V INDICATIONS: chest pain TECHNIQUE: One view of the chest was acquired. COMPARISON: None. FINDINGS: Surgical changes and devices: None. Lungs and pleura: There is an irregular, increased density focal interstitial opacity in the right mid lung. No pleural effusions or pneumothorax. Mediastinum: Mediastinal contours appear normal. Heart size is normal. Bones and chest wall: No suspicious bony lesions. Overlying soft tissues appear unremarkable. IMPRESSION: 1. Focal interstitial opacity in the right mid lung of uncertain etiology. Consider chest CT with contrast. Dictated by: Ernestina Mathew M.D. on 06/27/2022 at 11:02 Approved by: Ernestina Mathew M.D. on 06/27/2022 at 11:03
[2022-06-27 10:52] LABS: Add Manual Diff / Slide Review NO; Basophils Absolute Auto 100 /uL (0-100); Basophils Percent Auto 1.5 % (0-2); Eosinophils Absolute Auto 100 /uL (0-450); Eosinophils Percent Auto 1.5 % (2-4); Hematocrit 36.3 % (41-53); Hemoglobin 12.1 g/dL (13.5-17.5); Lymphocytes Absolute Auto 2600 /uL (1100-4500); Lymphocytes Percent Auto 26.3 % (25-40); Mean Corpuscular HGB Conc 33.4 % (30-36); Mean Corpuscular Hemoglobin 34.6 PG (26-34); Mean Corpuscular Volume 103.7 fL (80-100); Monocytes Absolute Auto 800 /uL (0-900); Neutrophils Absolute Auto 6300 /uL (1500-7000); Neutrophils Percent Auto 62.7 % (50-75); Platelet Count 228 X10^3/uL (150-400); White Blood Cell Count 10.1 X10^3/uL (4.5-11.0)
[2022-06-27 10:57] LABS: INR 1.1 (0.9-1.3); Prothrombin Time 12.5 SECONDS (10.1-12.7)
[2022-06-27 11:00] LABS: PTT Partial Thromboplastin Tim 31 SECONDS (26-36)
[2022-06-27 11:02] LABS: Alanine Aminotransferase 45 IU/L (<50); Albumin 3.8 g/dL (3.5-5.0); Alkaline Phosphatase 123 U/L (38-126); Aspartate Aminotransferase 74 IU/L (17-59); BUN Creatinine Ratio 21.4 (6-22); Bilirubin Total 0.5 mg/dL (0.2-1.3); Blood Urea Nitrogen 12 mg/dL (9-20); Calcium 8.5 mg/dL (8.4-10.2); Carbon Dioxide 25 mmol/L (22-32); Chloride 104 mmol/L (98-107); Creatine Kinase 101 U/L (55-170); Estimated Glomerular Filt Rate > 60 mL/min (>60); Glucose 102 mg/dL (70-100); HEMOLYSIS < 15 (0-50); Lipase 114 U/L (23-300); Magnesium 1.6 mg/dL (1.6-2.3); Potassium 3.6 mmol/L (3.4-5.1); Sodium 139 mmol/L (137-145); Total Protein 7.8 g/dL (6.3-8.2)
[2022-06-27 11:10] LABS: NT-proBNP (BNP-Adult 18+) 78 pg/mL (<125)
[2022-06-27 11:14] LABS: Troponin I < 0.012 ng/mL (0.01-0.034)
[2022-06-27 11:17] LABS: CKMB % Relative Index 1.2 % (1.5-5.0); Creatine Kinase MB 1.19 ng/mL (<2.37)
[2022-06-27 11:30] LABS: Appearance Urine UA CLEAR; Bilirubin Urine UA NEGATIVE (NEGATIVE); Glucose Urine UA NEGATIVE (Negative); Ketones Urine UA NEGATIVE (NEGATIVE); Leukocyte Esterase Urine UA NEGATIVE (NEGATIVE); Nitrite Urine UA NEGATIVE (Negative); Occult Blood Urine UA TRACE-INTACT (Negative); Protein Urine UA NEGATIVE (Negative); Specific Gravity Urine UA <=1.005 (1.000-1.035); Urobilinogen Urine UA 0.2 E.U./dL (0.2); pH Urine UA 7.5 (4.5-8.0)
[2022-06-27 11:34] LABS: Color Urine UA Straw
[2022-06-27 11:47] LABS: Bacteria Urine None Seen; Culture Indicated Urine Cult Not Indicated; RBC Urine None Seen (0-5/HPF); Squamous Epithelial Cell Urine None Seen (0-5/HPF); WBC Urine None Seen (0-5/HPF)
--- NOTE | 2022-06-27 12:14 | ED.MALEGU ---
HPI - Male Genitourinary General Chief complaint: Urogenital-Male Stated complaint: losing control of badder and bowels, swo ankles Time Seen by Provider: 06/27/22 11:49 Source: patient Mode of arrival: Ambulatory History of Present Illness HPI Narrative: This is a 51-year-old male with history of lung which has not completed workup, reported delusional disorder, chronic alcohol abuse, macrocytic anemia hypomagnesemia, patient also reports prior TBI multiple back and orthopedic injuries. Patient presents today ambulatory with his wagon of personal belongings to the back door and then walked around to the front, he is complaining of bowel and bladder incontinence. He states had issues he describes as feeling the sensation like he needs to urinate and then urine suddenly comes out. He had 700 mL on bladder scan after urinating had a catheter placed he felt the catheter go in but states it was not very painful. Patient also states he is had some issues with bowel movements he states that he had feeling that he needed to go the bathroom was at [facility] had just left the bathroom tried to walk to another location by the time he got then had a bowel movement. He states that it was sort of thick and thin, no black or bloody stools. He denies rectal pain he has occasional abdominal pain but nothing persistent. He has had some back issues he states no prior surgeries to his back that he is aware of he does have some chronic pain down his legs but denies new changes. He does have some chronic paresthesias and pins and needles. He has had normal range of motion. He does feel touch to the saddle region. Patient also states no fevers or chills. He denies any active chest pain or shortness of breath. He is had some nausea and vomiting intermittently longstanding he states that no black or blood with emesis. He states not persistent diarrhea. He notes that he was treated for chlamydia in 2015 he denies dysuria or discharge. He does note some sense of urgency before he urinates. Patient states he is not taking any prescription medications he states he has been prescribed medications he is not able to tell me what they are. Unclear if he is had any prior surgeries he initially states no but then leads to a prior cervical fusion. He states he has had a prior injury to his he does drink alcohol daily and he states to excess for the past 25 years. He states he has been told he has a right lung mass, kidney disease colitis. He states he does use tobacco he denies recreational drugs or any IV drugs. Patient does note some hallucinations intermittently but they do not seem to distress him. He is not had thoughts of harming himself or others. He primary care was a Dr. Morgan. He has been traveling in the region but [place], [facility]. Patient states he is had hospitalizations in all of these areas. He has been recommended to have a biopsy of the mass or nodule in his lung, he left the hospital previously before this could be obtained. Related Data Previous Rx's Medication Instructions Recorded folic acid 1 mg tablet 1 mg PO DAILY 30 days #30 tabs 06/03/22 gabapentin 300 mg capsule 300 mg PO TID 30 days #90 caps 06/03/22 (Neurontin) multivitamin with folic acid 400 1 tab PO DAILY 30 days #30 tabs 06/03/22 mcg tablet (Tab-A-Martina) pantoprazole 40 mg tablet,delayed 40 mg PO 0700,2100 30 days #60 tabs 06/03/22 release tamsulosin 0.4 mg capsule (Flomax) 0.4 mg PO DAILY #10 caps 06/27/22 tamsulosin 0.4 mg capsule (Flomax) 0.4 mg PO DAILY #10 caps 06/27/22 Allergies Allergy/AdvReac Type Severity Reaction Status Date / Time No Known Drug Allergies Allergy Verified 05/27/22 19:25 Review of Systems Review of Systems ROS Unobtainable: All systems reviewed & are unremarkable except as noted in HPI and below Patient History Medical History Alcohol withdrawal Chronic pain syndrome Lung mass Spinal stenosis TBI (traumatic brain injury) Family History Mother Brain tumor Father Chronic alcohol use Hx of liver transplant Staphylococcal pneumonia Social History household members: none Smoking Status: Current some day smoker alcohol intake: current Smoking Status: Current some day smoker tobacco type: cigarettes alcohol intake frequency: 3 or more drinks per day Alcohol type: hard liquor Substance Use Type: marijuana Exam Narrative Exam Narrative: GEN: well nourished, well appearing male, alert and oriented x 3, patient appears to be in mind distress. Patient does smell of tobacco smoke. HEENT: Atraumatic, pupils are equal round reactive to light, extraocular movements are intact, nares are clear, there is no conjunctival pallor. Throat is clear without any exudates, erythema, tonsillar enlargement or uvular deviation HEART: Regular rate and rhythm without murmur, clicks, rubs. Pulses are equal in upper and lower extremities LUNGS:Lungs clear to auscultation, no wheezes, rales, crackles, chest moves symmetrically ABD:bowel sounds normal, soft, non-tender, no guarding, rebound, rigidity, no masses noted, no hepatosplenomegaly :No CVA tenderness, patient has Gibbons catheter in place. Normal male genitalia. BACK: No cervical, thoracic or lumbar vertebral point tenderness. Patient has normal range of motion. Patient's gait is normal. Rectal exam is positive for tone. Muscle strength is 5/5 in lower extremities, DTRs are 2/4 and lower extremities. Dorsalis pedis and tibialis pulses are 2+ and lower extremities. Sensation is intact but is slightly decreased bilaterally in the lower extremities. MSCL: Non-tender, no muscle atrophy, muscles strength 5/5 upper and lower extremities, full range of motion, normal gait NEURO:CN 2-12 intact, sensation normal, reflexes 2/4 upper and lower extremities Initial Vital Signs Initial Vital Signs: Vital Signs Pulse Rate 79 06/27/22 10:37 Blood Pressure 123/58 L 06/27/22 10:37 Pulse Oximetry 99 06/27/22 10:37 Course Orders Ordered: ED Orders 06/27/22 10:42 BNP [NT-proBNP (BNP-Adult 18+)] Stat Complete Blood Count AUTO DIFF Stat Comprehensive Metabolic Panel Stat ETOH [Ethanol (ETOH)] Stat Lipase Stat Magnesium Stat PTT Partial Thromboplastin Dar Stat Prothrombin Time INR Stat Troponin & CK Cardiac Panel Stat 06/27/22 10:45 XR chest 1V Stat 06/27/22 11:17 Chlamydia Gonorrhea PCR -URINE Stat Urinalysis and Microscopic Stat Urine Drug Screen, Rapid Stat 06/27/22 11:50 EKG-12 Lead Stat 06/27/22 12:34 CT abdomen pelvis w con Stat 06/27/22 13:42 MR lumbar spine wo con Stat 06/27/22 16:29 Consult to RECORD RETRIEVAL SPECIALIST - Shaker Operator Stat Discontinued Medications Lorazepam (Lorazepam 2 Mg/Ml Inj) 0.5 mg IV NOW ONE Stop: 06/27/22 13:58 Last Admin: 06/27/22 14:00 Dose: 0.5 mg Documented By: MICHAEL Vital Signs Vital signs: Vital Signs - 8 hr 06/27/22 10:46 06/27/22 10:59 06/27/22 10:59 Temperature 98.1 F Pulse Rate 80 83 Respiratory Rate 18 Blood Pressure 123/58 L 122/72 Pulse Oximetry 100 98 Oxygen Delivery Method Room Air 06/27/22 11:00 06/27/22 11:20 06/27/22 11:20 Temperature Pulse Rate 66 74 Respiratory Rate Blood Pressure 127/73 Pulse Oximetry 99 99 Oxygen Delivery Method 06/27/22 11:30 06/27/22 11:40 06/27/22 11:40 Temperature Pulse Rate 55 L 61 Respiratory Rate Blood Pressure 115/61 Pulse Oximetry 97 97 Oxygen Delivery Method 06/27/22 12:00 06/27/22 12:00 06/27/22 12:20 Temperature Pulse Rate 86 80 Respiratory Rate Blood Pressure 126/75 Pulse Oximetry 98 98 Oxygen Delivery Method 06/27/22 12:20 06/27/22 12:30 06/27/22 12:40 Temperature Pulse Rate 77 80 Respiratory Rate Blood Pressure 106/72 Pulse Oximetry 100 99 Oxygen Delivery Method 06/27/22 12:40 06/27/22 13:00 06/27/22 13:30 Temperature Pulse Rate 81 78 Respiratory Rate Blood Pressure 111/58 L Pulse Oximetry 99 94 Oxygen Delivery Method 06/27/22 14:33 06/27/22 14:34 06/27/22 14:34 Temperature Pulse Rate 97 H 93 H Respiratory Rate Blood Pressure 126/73 Pulse Oximetry 95 97 Oxygen Delivery Method 06/27/22 14:40 06/27/22 14:40 06/27/22 15:00 Temperature Pulse Rate 80 Respiratory Rate Blood Pressure 104/58 L 108/55 L Pulse Oximetry 96 Oxygen Delivery Method 06/27/22 15:00 06/27/22 15:21 06/27/22 15:21 Temperature Pulse Rate 83 85 Respiratory Rate Blood Pressure 120/62 Pulse Oximetry 97 96 Oxygen Delivery Method 06/27/22 15:23 06/27/22 15:23 06/27/22 15:30 Temperature Pulse Rate 84 89 Respiratory Rate Blood Pressure 125/66 Pulse Oximetry 98 96 Oxygen Delivery Method 06/27/22 15:40 06/27/22 15:40 06/27/22 16:00 Temperature Pulse Rate 84 Respiratory Rate Blood Pressure 125/61 108/56 L Pulse Oximetry 98 Oxygen Delivery Method 06/27/22 16:00 06/27/22 16:20 06/27/22 16:20 Temperature Pulse Rate 86 88 Respiratory Rate Blood Pressure 102/59 L Pulse Oximetry 95 96 Oxygen Delivery Method 06/27/22 16:30 06/27/22 16:40 06/27/22 16:40 Temperature Pulse Rate 93 H 99 H Respiratory Rate Blood Pressure 108/61 Pulse Oximetry 97 96 Oxygen Delivery Method 06/27/22 16:59 06/27/22 17:00 Temperature Pulse Rate 90 Respiratory Rate Blood Pressure 106/67 Pulse Oximetry 96 Oxygen Delivery Method MDM - Male Genitourinary Lab Data 06/27/22 10:42 06/27/22 10:42 Labs: Lab Results 06/27/22 06/27/22 06/27/22 Range/Units 10:42 10:42 10:42 WBC 10.1 (4.5-11.0) X10^3/uL RBC 3.50 L (4.5-5.9) X10^6/uL Hgb 12.1 L (13.5-17.5) g/dL Hct 36.3 L (41-53) % MCV 103.7 H (80-100) fL MCH 34.6 H (26-34) PG MCHC 33.4 (30-36) % RDW 19.0 H (11.6-14.8) % Plt Count 228 (150-400) X10^3/uL Neut % (Auto) 62.7 (50-75) % Lymph % (Auto) 26.3 (25-40) % [place] % (Auto) 8.0 (3-14) % Eos % (Auto) 1.5 L (2-4) % Baso % (Auto) 1.5 (0-2) % Neut # (Auto) 6300 (5840-1555) /uL Lymph # (Auto) 2600 (6131-4909) /uL [place] # (Auto) 800 (0-900) /uL Eos # (Auto) 100 (0-450) /uL Baso # (Auto) 100 (0-100) /uL PT 12.5 (10.1-12.7) SECONDS INR 1.1 (0.9-1.3) APTT 31 (26-36) SECONDS Sodium 139 (137-145) mmol/L Potassium 3.6 (3.4-5.1) mmol/L Chloride 104 (98-107) mmol/L Carbon Dioxide 25 (22-32) mmol/L BUN 12 (9-20) mg/dL Creatinine 0.56 L (0.66-1.25) mg/dL Estimated GFR > 60 (>60) mL/min BUN/Creatinine Ratio 21.4 (6-22) Glucose 102 H (70-100) mg/dL Calcium 8.5 (8.4-10.2) mg/dL Magnesium 1.6 (1.6-2.3) mg/dL Total Bilirubin 0.5 (0.2-1.3) mg/dL AST 74 H (17-59) IU/L ALT 45 (<50) IU/L Alkaline Phosphatase 123 (38-126) U/L Total Creatine Kinase 101 (55-170) U/L CK-MB (CK-2) 1.19 (<2.37) ng/mL CK-MB (CK-2) Rel Index 1.2 L (1.5-5.0) % Troponin I < 0.012 (0.01-0.034) ng/mL NT-Pro-B Natriuret Pep (<125) pg/mL Total Protein 7.8 (6.3-8.2) g/dL Albumin 3.8 (3.5-5.0) g/dL Globulin 4.0 (1.7-4.1) g/dL Albumin/Globulin Ratio 1.0 (1.0-2.8) Lipase 114 (23-300) U/L Urine Color Urine Appearance Urine pH (4.5-8.0) Ur Specific [place] (1.000-1.035) Urine Protein (Negative) Urine Glucose (UA) (Negative) g/dL Urine Ketones (NEGATIVE) Urine Occult Blood (Negative) Urine Nitrate (Negative) Urine Bilirubin (NEGATIVE) Urine Urobilinogen (0.2) E.U./dL Ur Leukocyte Esterase (NEGATIVE) Urine RBC (0-5/HPF) Urine WBC (0-5/HPF) Ur Squamous Epith Cells (0-5/HPF) Urine Bacteria (None) Ur Culture Indicated? U Opiates 300ng/mL cut (Negative) Ur Oxycodone Screen (Negative) Urine Methadone Screen (Negative) Ur Barbiturates Screen (Negative) U Tricyclic Antidepress (Negative) Ur Phencyclidine Scrn (Negative) Ur Amphetamines Screen (Negative) U Methamphetamines Scrn (Negative) Ur MDMA Scrn (Ecstasy) (Negative) U Benzodiazepines Scrn (Negative) Urine Cocaine Screen (Negative) U Marijuana (THC) Screen (Negative) Ethyl Alcohol ( - 10) mg/dL Ur Chlamydia DNA (PCR) N gonorrhoeae DNA (PCR) 06/27/22 06/27/22 06/27/22 Range/Units 10:42 10:42 11:17 WBC (4.5-11.0) X10^3/uL RBC (4.5-5.9) X10^6/uL Hgb (13.5-17.5) g/dL Hct (41-53) % MCV (80-100) fL MCH (26-34) PG MCHC (30-36) % RDW (11.6-14.8) % Plt Count (150-400) X10^3/uL Neut % (Auto) (50-75) % Lymph % (Auto) (25-40) % Crowley % (Auto) (3-14) % Eos % (Auto) (2-4) % Baso % (Auto) (0-2) % Neut # (Auto) (0648-2619) /uL Lymph # (Auto) (5847-6000) /uL [place] # (Auto) (0-900) /uL Eos # (Auto) (0-450) /uL Baso # (Auto) (0-100) /uL PT (10.1-12.7) SECONDS INR (0.9-1.3) APTT (26-36) SECONDS Sodium (137-145) mmol/L Potassium (3.4-5.1) mmol/L Chloride (98-107) mmol/L Carbon Dioxide (22-32) mmol/L BUN (9-20) mg/dL Creatinine (0.66-1.25) mg/dL Estimated GFR (>60) mL/min BUN/Creatinine Ratio (6-22) Glucose (70-100) mg/dL Calcium (8.4-10.2) mg/dL Magnesium (1.6-2.3) mg/dL Total Bilirubin (0.2-1.3) mg/dL AST (17-59) IU/L ALT (<50) IU/L Alkaline Phosphatase (38-126) U/L Total Creatine Kinase (55-170) U/L CK-MB (CK-2) (<2.37) ng/mL CK-MB (CK-2) Rel Index (1.5-5.0) % Troponin I (0.01-0.034) ng/mL NT-Pro-B Natriuret Pep 78 (<125) pg/mL Total Protein (6.3-8.2) g/dL Albumin (3.5-5.0) g/dL Globulin (1.7-4.1) g/dL Albumin/Globulin Ratio (1.0-2.8) Lipase (23-300) U/L Urine Color Straw Urine Appearance Clear Urine pH 7.5 (4.5-8.0) Ur Specific [place] <=1.005 (1.000-1.035) Urine Protein Negative (Negative) Urine Glucose (UA) Negative (Negative) g/dL Urine Ketones Negative (NEGATIVE) Urine Occult Blood Trace-intact (Negative) Urine Nitrate Negative (Negative) Urine Bilirubin Negative (NEGATIVE) Urine Urobilinogen 0.2 (0.2) E.U./dL Ur Leukocyte Esterase Negative (NEGATIVE) Urine RBC None seen (0-5/HPF) Urine WBC None seen (0-5/HPF) Ur Squamous Epith Cells None seen (0-5/HPF) Urine Bacteria None seen (None) Ur Culture Indicated? Cult not indicated U Opiates 300ng/mL cut (Negative) Ur Oxycodone Screen (Negative) Urine Methadone Screen (Negative) Ur Barbiturates Screen (Negative) U Tricyclic Antidepress (Negative) Ur Phencyclidine Scrn (Negative) Ur Amphetamines Screen (Negative) U Methamphetamines Scrn (Negative) Ur MDMA Scrn (Ecstasy) (Negative) U Benzodiazepines Scrn (Negative) Urine Cocaine Screen (Negative) U Marijuana (THC) Screen (Negative) Ethyl Alcohol 240 H ( - 10) mg/dL Ur Chlamydia DNA (PCR) N gonorrhoeae DNA (PCR) 06/27/22 06/27/22 Range/Units 11:17 11:17 WBC (4.5-11.0) X10^3/uL RBC (4.5-5.9) X10^6/uL Hgb (13.5-17.5) g/dL Hct (41-53) % MCV (80-100) fL MCH (26-34) PG MCHC (30-36) % RDW (11.6-14.8) % Plt Count (150-400) X10^3/uL Neut % (Auto) (50-75) % Lymph % (Auto) (25-40) % [place] % (Auto) (3-14) % Eos % (Auto) (2-4) % Baso % (Auto) (0-2) % Neut # (Auto) (3797-5766) /uL Lymph # (Auto) (6994-6668) /uL [place] # (Auto) (0-900) /uL Eos # (Auto) (0-450) /uL Baso # (Auto) (0-100) /uL PT (10.1-12.7) SECONDS INR (0.9-1.3) APTT (26-36) SECONDS Sodium (137-145) mmol/L Potassium (3.4-5.1) mmol/L Chloride (98-107) mmol/L Carbon Dioxide (22-32) mmol/L BUN (9-20) mg/dL Creatinine (0.66-1.25) mg/dL Estimated GFR (>60) mL/min BUN/Creatinine Ratio (6-22) Glucose (70-100) mg/dL Calcium (8.4-10.2) mg/dL Magnesium (1.6-2.3) mg/dL Total Bilirubin (0.2-1.3) mg/dL AST (17-59) IU/L ALT (<50) IU/L Alkaline Phosphatase (38-126) U/L Total Creatine Kinase (55-170) U/L CK-MB (CK-2) (<2.37) ng/mL CK-MB (CK-2) Rel Index (1.5-5.0) % Troponin I (0.01-0.034) ng/mL NT-Pro-B Natriuret Pep (<125) pg/mL Total Protein (6.3-8.2) g/dL Albumin (3.5-5.0) g/dL Globulin (1.7-4.1) g/dL Albumin/Globulin Ratio (1.0-2.8) Lipase (23-300) U/L Urine Color Urine Appearance Urine pH (4.5-8.0) Ur Specific [place] (1.000-1.035) Urine Protein (Negative) Urine Glucose (UA) (Negative) g/dL Urine Ketones (NEGATIVE) Urine Occult Blood (Negative) Urine Nitrate (Negative) Urine Bilirubin (NEGATIVE) Urine Urobilinogen (0.2) E.U./dL Ur Leukocyte Esterase (NEGATIVE) Urine RBC (0-5/HPF) Urine WBC (0-5/HPF) Ur Squamous Epith Cells (0-5/HPF) Urine Bacteria (None) Ur Culture Indicated? U Opiates 300ng/mL cut Negative (Negative) Ur Oxycodone Screen Negative (Negative) Urine Methadone Screen Negative (Negative) Ur Barbiturates Screen Negative (Negative) U Tricyclic Antidepress Negative (Negative) Ur Phencyclidine Scrn Negative (Negative) Ur Amphetamines Screen Negative (Negative) U Methamphetamines Scrn Negative (Negative) Ur MDMA Scrn (Ecstasy) Negative (Negative) U Benzodiazepines Scrn Negative (Negative) Urine Cocaine Screen Negative (Negative) U Marijuana (THC) Screen Negative (Negative) Ethyl Alcohol ( - 10) mg/dL Ur Chlamydia DNA (PCR) Not detected N gonorrhoeae DNA (PCR) Not detected Urine Dip Bedside Urine Glucose Negative Bedside Urine Bilirubin - Negative Bedside Urine Ketone - Negative Urine Specific [place] 1.010 Bedside Urine Occult Blood - Negative Bedside Urine pH 7.0 Bedside Urine Protein - Negative Bedside Urine Urobilinogen - Negative Bedside Urine Nitrite - Negative Bedside Urine Leukocytes - Negative Esterase Imaging Data CT scan - abdomen/pelvis: Radiologist's Impression: [address] [address] [address] Scan Report Signed Patient: Eros Beavers MR#: [id number] : 1970 Acct:[id number] Age/Sex: 51 / M Date of Service: 06/27/22 Loc: ED Accession Number: [id number] ?? Procedure: CT abdomen pelvis w con Ordering Provider: Romy Alcantara D.O. PROCEDURE:? CT ABDOMEN PELVIS W CON ? INDICATIONS:? urinary retention, ? BM incontinence v diarrhea, hx back pierre ? TECHNIQUE:? After the administration of oral and IV contrast, axial sections were acquired from the lung bases to the pubic symphysis.? Coronal and sagittal reformats were performed.? For radiation dose reduction, the following was used:? automated exposure control, adjustment of mA and/or kV according to patient size. ? COMPARISON:? [facility], CT, CT ABDOMEN PELVIS W CON, 05/27/2022, 21:10.? [facility], CR, XR CHEST 1V, 06/27/2022, 10:46. ? FINDINGS:? Image quality:? Excellent.? ? Lung bases:? Unremarkable.? ? Heart:? No significant findings. ? ? ABDOMEN: Liver:? Unremarkable.? ? The previously seen focal liver abnormality is no longer seen. Gallbladder:? Unremarkable.? ? Biliary ducts:? Unremarkable.? ? Pancreas:? Unremarkable.? ? Spleen:? Unremarkable.? ? Adrenal Glands:? Unremarkable.? ? Kidneys and Ureters:? Unremarkable.? ? ? Stomach and Bowel:? The volume of stool within the colon is considered to be within normal limits.? Stomach, small bowel loops, and colon are unremarkable.? A normal appendix is incidentally noted.? Peritoneum:? No abnormal intraperitoneal fluid.? No free air.? ? Ventral Wall: ? No hernia.? Abdominal Nodes:? No retroperitoneal or mesenteric adenopathy by size criteria.? Vessels:? Aorta and inferior vena cava are normal in size.? ? PELVIS: Pelvic Organs:? Unremarkable.? ? Bladder:? A Gibbons catheter is seen, which decompresses the bladder.? Pelvic Nodes: No enlarged lymph nodes.? Miscellaneous: No inguinal hernias are seen. ? ? ? Bones:? Relatively prominent lower lumbar spine degenerative changes are seen.? IMPRESSION:? The volume of stool within the colon is considered to be within normal limits. ? No dilated loops of small bowel are seen. ? Premature lower lumbar spine degenerative changes are seen. If it would be helpful for clinical management decision making, please consider a dedicated, scheduled lumbar spine MRI for further evaluation (assuming that there is no contraindication).? ? Resolution of the previously seen focal liver abnormality.? ? Pleural effusions and ascites no longer seen. ? ? Additional findings:? Gibbons catheter ? Dictated by: Bassam Lindo M.D. on 06/27/2022 at 12:33 ? ? Approved by: Bassam Lindo M.D. on 06/27/2022 at 12:36?? Lumbar spine MRI: Radiologist's Impression: [address] [address] Magnetic Resonance Report Signed Patient: Eros Beavers MR#: [id number] : 1970 Acct:[id number] Age/Sex: 51 / M Date of Service: 06/27/22 Loc: ED Accession Number: [id number] ?? Procedure: MR lumbar spine wo con Ordering Provider: Romy Alcantara D.O. PROCEDURE:? MR LUMBAR SPINE WO CON ? INDICATIONS:? urinary retention, ? bm incontinence, chronic back pain ? TECHNIQUE:? Noncontrast sagittal T1 spin echo and T2 fast echo, sagittal STIR, and T2 fast spin echo through the lumbar spine.? In cases with scoliosis, additional coronal T2 fast spin echo may be performed.? ? COMPARISON:? [facility], CR, XR CHEST 1V, 06/27/2022, 10:46.? [facility], CT, CT ABDOMEN PELVIS W CON, 06/27/2022, 12:48. ? FINDINGS:? Image quality:? This examination is limited by involuntary motion artifact.? ? Alignment and Curvature:? There is straightening of the normal lumbar lordosis.? Minimal retrolisthesis is seen at L4-L5.? Mild retrolisthesis is seen at L5-S1. ? Bone Marrow:? Marrow is of normal overall signal.? No acute vertebral body compression fractures.? ? Spinal Cord:? Conus medullaris terminates at the L1 level.? Visualized cord demonstrates normal signal and size.? ? Paraspinous Soft Tissues:? No paravertebral masses.? ? T12-L1:? Normal appearance.? ? L1-L2:? No significant abnormality is seen. ? L2-L3:? The disc height and disk signal are relatively well-preserved.? Mild generalized disc bulge is seen.? Mild facet joint hypertrophy is seen. Mild bilateral neural foraminal narrowing is seen.? Mild to moderate central canal narrowing is seen. ? L3-L4:? Moderate loss of disc height is seen.? Loss of disc signal is seen.? Reactive marrow endplate changes are seen, which are hyperintense on T1-weighted and T2-weighted imaging and most consistent with fatty metaplasia (Modic type II changes).? Moderate generalized disc bulge is seen, which is eccentric to the right. There is a superimposed central disc protrusion. ? There is a focal annular fissure seen posteriorly.? There is moderate left-sided neural foraminal narrowing.? At least moderate right-sided neural foraminal narrowing is seen, with a degree of compression upon the exiting right L3 nerve root. Moderate central canal narrowing is seen.? ? L4-L5:? Moderate loss of disc height is seen.? Loss of disc signal is seen.? Reactive marrow endplate changes are seen, which are hyperintense on T1-weighted and T2-weighted imaging and most consistent with fatty metaplasia (Modic type II changes).? Moderate generalized disc bulge is seen. There is a superimposed central disc protrusion. ? Mild facet joint hypertrophy is seen.? There is at least moderate bilateral neural foraminal narrowing seen, right worse than left. Moderate central canal narrowing is seen.? ? L5-S1:? At least moderate loss of disc height and disc signal can be seen. Moderate generalized disc bulge is seen.? There is a mild central disc extrusion, with inferior migration of the disc material, as seen on series 2 image 12. Mild facet joint hypertrophy is seen. Moderate bilateral neural foraminal narrowing is seen.? Moderate central canal narrowing is seen.? IMPRESSION:? No inessa acute abnormality is seen. ? Multiple levels of lumbar spine degenerative change are seen, which are worst inferiorly. ? Dictated by: Bassam Lindo M.D. on 06/27/2022 at 14:13 ? ? Approved by: Bassam Lindo M.D. on 06/27/2022 at 14:17?? [facility] Narrative Medical decision making narrative: This is a 51-year-old male presents with complaint of issues with bowel and bladder sounds like not true bowel incontinence as he is able to hold his stool for quite some distance while walking, he does have obvious urinary retention he has chronic back pain with some mild paresthesias bilaterally. Patient's back might be the source of his pain but other sources may as well so start will CT abdomen pelvis to evaluate for other sources his neurologic exam besides paresthesias he has sensation to touch no saddle anesthesia that I appreciate rectal tone is intact and he has normal range of motion and strength. Lab workup including CBC, coags, CMP, LFTs, troponin urinalysis was negative. Patient has a known right lung mass. Urine GC was added on as patient has noted he is had issues in the past, CT abdomen pelvis is negative with no clear source. Patient felt appropriate for MR lumbar spine is next step. This shows degenerative changes but no clear your spinal stenosis spinal cord impingement. Patient's imaging does show a degree of compression of the exiting right L3 nerve root, patient has some moderate central canal narrowing seen but no inessa acute abnormality noted. Discussed with patient he does not have any complaints of significant back pain currently. He has longstanding chronic paresthesias in his legs but normal muscular exam, he has urinary retention but unclear how long this has been present for and his incontinence was actually the sensation that he had to have bowel movement walked some distance to another area and then before he was able to actually go to the bathroom stooled and knew that he needed to stool. Patient would likely also benefit from [facility] SPECIAL[facility] evaluation, they did meet with the patient. He is homeless he has some follow-up options. 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 He is requesting help with catching a ride to [place]. Plan to start Flomax, recommended for Urology with follow-up. He does have an RV that he sometimes stays in locally but he is not able to drive at around at this time. Discharge Plan Departure Patient Disposition: Home Clinical Impression: Urinary retention Instructions: DI for Urinary Retention in Men Activity Restrictions/Additional Instructions: Please follow-up for recheck, you do have urinary retention and should be followed with Urology. You have a catheter in place secondary to urinary retention. This should be removed in about a week. Please call to set up an appointment with Urology. Take Flomax once daily until gone. Prescription was printed. Please return fevers, new abdominal back or flank pain new weakness in her extremities, loss of sensation that is worsening in your extremities, persistent changes to bowel or bladder or other new or concerning changes Prescriptions: New tamsulosin [Flomax] 0.4 mg capsule 0.4 mg PO DAILY Qty: 10 0RF tamsulosin [Flomax] 0.4 mg capsule 0.4 mg PO DAILY Qty: 10 0RF No Action pantoprazole 40 mg Tablet,Delayed Release (Dr/Ec) 40 mg PO 0700,2100 30 Days Qty: 60 0RF gabapentin [Neurontin] 300 mg Capsule 300 mg PO TID 30 Days Qty: 90 0RF folic acid 1 mg Tablet 1 mg PO DAILY 30 Days Qty: 30 0RF multivitamin with folic acid [Tab-A-Martina] 400 mcg Tablet 1 tab PO DAILY 30 Days Qty: 30 0RF Referrals: Lanny Lindsey MD [Physician] - Santos Morgan MD [Primary Care Provider] - Stand Alone Forms: Patient Portal/API
--- NOTE | 2022-06-27 12:34 | DI.CT.S_ITS ---
PROCEDURE: CT ABDOMEN PELVIS W CON INDICATIONS: urinary retention, ? BM incontinence v diarrhea, hx back pierre TECHNIQUE: After the administration of oral and IV contrast, axial sections were acquired from the lung bases to the pubic symphysis. Coronal and sagittal reformats were performed. For radiation dose reduction, the following was used: automated exposure control, adjustment of mA and/or kV according to patient size. COMPARISON: [facility], CT, CT ABDOMEN PELVIS W CON, 05/27/2022, 21:10. [facility], CR, XR CHEST 1V, 06/27/2022, 10:46. FINDINGS: Image quality: Excellent. Lung bases: Unremarkable. Heart: No significant findings. ABDOMEN: Liver: Unremarkable. The previously seen focal liver abnormality is no longer seen. Gallbladder: Unremarkable. Biliary ducts: Unremarkable. Pancreas: Unremarkable. Spleen: Unremarkable. Adrenal Glands: Unremarkable. Kidneys and Ureters: Unremarkable. Stomach and Bowel: The volume of stool within the colon is considered to be within normal limits. Stomach, small bowel loops, and colon are unremarkable. A normal appendix is incidentally noted. Peritoneum: No abnormal intraperitoneal fluid. No free air. Ventral Wall: No hernia. Abdominal Nodes: No retroperitoneal or mesenteric adenopathy by size criteria. Vessels: Aorta and inferior vena cava are normal in size. PELVIS: Pelvic Organs: Unremarkable. Bladder: A Gibbons catheter is seen, which decompresses the bladder. Pelvic Nodes: No enlarged lymph nodes. Miscellaneous: No inguinal hernias are seen. Bones: Relatively prominent lower lumbar spine degenerative changes are seen. IMPRESSION: The volume of stool within the colon is considered to be within normal limits. No dilated loops of small bowel are seen. Premature lower lumbar spine degenerative changes are seen. If it would be helpful for clinical management decision making, please consider a dedicated, scheduled lumbar spine MRI for further evaluation (assuming that there is no contraindication). Resolution of the previously seen focal liver abnormality. Pleural effusions and ascites no longer seen. Additional findings: Gibbons catheter Dictated by: Bassam Lindo M.D. on 06/27/2022 at 12:33 Approved by: Bassam Lindo M.D. on 06/27/2022 at 12:36
[2022-06-27 13:04] LABS: UR Morphine/Opiate cutoff 300 Negative (Negative); Ur Creatinine Normal (Normal); Ur Specific Gravity Normal (Normal); Urine Amphetamines Negative (Negative); Urine Barbiturates Negative (Negative); Urine Benzodiazepines Negative (Negative); Urine Cocaine Negative (Negative); Urine MDMA Negative (Negative); Urine Methadone Negative (Negative); Urine Methamphetamines Negative (Negative); Urine Oxycodone Negative (Negative); Urine Phencyclidine Negative (Negative); Urine Tetrahydrocannabinol Negative (Negative); Urine Tricyclic Antidepressant Negative (Negative); Urine pH Normal (Normal)
[2022-06-27 13:18] LABS: Ethanol (ETOH) 240 mg/dL
--- NOTE | 2022-06-27 13:42 | DI.MRI.S_ITS ---
PROCEDURE: MR LUMBAR SPINE WO CON INDICATIONS: urinary retention, ? bm incontinence, chronic back pain TECHNIQUE: Noncontrast sagittal T1 spin echo and T2 fast echo, sagittal STIR, and T2 fast spin echo through the lumbar spine. In cases with scoliosis, additional coronal T2 fast spin echo may be performed. COMPARISON: [facility], CR, XR CHEST 1V, 06/27/2022, 10:46. [facility], CT, CT ABDOMEN PELVIS W CON, 06/27/2022, 12:48. FINDINGS: Image quality: This examination is limited by involuntary motion artifact. Alignment and Curvature: There is straightening of the normal lumbar lordosis. Minimal retrolisthesis is seen at L4-L5. Mild retrolisthesis is seen at L5-S1. Bone Marrow: Marrow is of normal overall signal. No acute vertebral body compression fractures. Spinal Cord: Conus medullaris terminates at the L1 level. Visualized cord demonstrates normal signal and size. Paraspinous Soft Tissues: No paravertebral masses. T12-L1: Normal appearance. L1-L2: No significant abnormality is seen. L2-L3: The disc height and disk signal are relatively well-preserved. Mild generalized disc bulge is seen. Mild facet joint hypertrophy is seen. Mild bilateral neural foraminal narrowing is seen. Mild to moderate central canal narrowing is seen. L3-L4: Moderate loss of disc height is seen. Loss of disc signal is seen. Reactive marrow endplate changes are seen, which are hyperintense on T1-weighted and T2-weighted imaging and most consistent with fatty metaplasia (Modic type II changes). Moderate generalized disc bulge is seen, which is eccentric to the right. There is a superimposed central disc protrusion. There is a focal annular fissure seen posteriorly. There is moderate left-sided neural foraminal narrowing. At least moderate right-sided neural foraminal narrowing is seen, with a degree of compression upon the exiting right L3 nerve root. Moderate central canal narrowing is seen. L4-L5: Moderate loss of disc height is seen. Loss of disc signal is seen. Reactive marrow endplate changes are seen, which are hyperintense on T1-weighted and T2-weighted imaging and most consistent with fatty metaplasia (Modic type II changes). Moderate generalized disc bulge is seen. There is a superimposed central disc protrusion. Mild facet joint hypertrophy is seen. There is at least moderate bilateral neural foraminal narrowing seen, right worse than left. Moderate central canal narrowing is seen. L5-S1: At least moderate loss of disc height and disc signal can be seen. Moderate generalized disc bulge is seen. There is a mild central disc extrusion, with inferior migration of the disc material, as seen on series 2 image 12. Mild facet joint hypertrophy is seen. Moderate bilateral neural foraminal narrowing is seen. Moderate central canal narrowing is seen. IMPRESSION: No inessa acute abnormality is seen. Multiple levels of lumbar spine degenerative change are seen, which are worst inferiorly. Dictated by: Bassam Lindo M.D. on 06/27/2022 at 14:13 Approved by: Bassam Lindo M.D. on 06/27/2022 at 14:17
[2022-06-27] MEDS: LORazepam 2 MG/ML INJ 0.5 MG IV (14:00)
[2022-06-27 14:16] LABS: Urine Chlamydia NOT DETECTED; Urine N gonorrhoeae NOT DETECTED
--- NOTE | 2022-06-27 17:21 | PC.NURSE ---
Removed roberts cath at patient's request, at time of d/c. Patient states its too difficult to manage since he is homeless. Provider aware.
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
== END 2022-06-27 17:25 | disposition home or self-care (01) ==
PROVIDERS: Emergency Provider Emergency Medicine; PCP Specialist
DX: R33.9 Retention of urine, unspecified (principal); R10.9 Unspecified abdominal pain; R07.9 Chest pain, unspecified
CPT/HCPCS: 36415; 51798; 71045; 72148; 74177; 80053; 80305; 80320; 81001; 81003; 82550; 82553; 83690; 83735; 83880; 84484; 85025; 85610; 85730; 87491; 87591; 93005; 96374; 99284; 99285; J2060

== ENCOUNTER → 2022-07-07 08:44 | Outpatient (CLI) | payer SELFPAY ==
[2022-05-28 00:52] VITALS: BMI 24.5
--- NOTE | 2022-07-07 | DI.CT.S_ITS ---
PROCEDURE: CT CHEST WO CON INDICATIONS: Other nonspecific abnormal finding of lung field. Follow-up abnormal chest x-ray TECHNIQUE: Noncontrast 5 mm thick sections acquired from the pulmonary apices to the posterior costophrenic angles. 1 mm lung window, 5 mm thick coronal and sagittal and 7 mm axial MIP reformats were then acquired. For radiation dose reduction, the following was used: automated exposure control, adjustment of mA and/or kV according to patient size. COMPARISON: X-ray 06/27/2022 FINDINGS: Image quality: Excellent. Lungs and pleura: No pleural effusions or pneumothorax. Central and peripheral airways are patent and normal in caliber. Moderate centrilobular emphysema. Biapical bullous disease. In the posterior right upper lobe, there is a region of architectural distortion with ground-glass but no definite nodularity. Few solid pulmonary nodules are present, measuring no greater than 4 millimeters. Examples include: -3 millimeter solid nodule, right lower lobe (3/251). - 4 millimeter solid nodule, left lower lobe (3/143). Mediastinum: Heart size is normal. No pericardial effusion. No mediastinal adenopathy by size criteria. Thoracic aorta and central pulmonary arteries are normal in size. Esophagus is normal in caliber. No hiatal hernia. Bones and chest wall: No suspicious bony lesions. No vertebral body compression fractures. No axillary or supraclavicular adenopathy by size criteria. Thyroid gland is unremarkable . Abdomen: Visualized upper abdominal solid organs and bowel loops appear normal in the absence of contrast. IMPRESSION: Region of architectural distortion with associated ground-glass in the posterior right upper lobe. No nodularity. Findings probably represent scar, post infectious state, less likely low-grade pulmonary adenocarcinoma (in the presence of ground-glass). Recommend three-month follow-up with chest CT to evaluate for changes. Additional scattered pulmonary micro nodules, measuring no greater than 4 millimeters. Consider 12 month follow-up per Fleischner society guidelines. Dictated by: Emory Baker M.D. on 07/07/2022 at 10:15 Approved by: Emory Baker M.D. on 07/07/2022 at 10:20
== END ==
PROVIDERS: PCP Specialist; Referring Provider Internal Medicine; Visit Provider Internal Medicine
DX: R91.8 Other nonspecific abnormal finding of lung field (principal)
CPT/HCPCS: 71250

== ENCOUNTER 2022-07-13 11:18 | Emergency (ER) | payer SELFPAY ==
[2022-05-28 00:52] VITALS: BMI 24.5
[2022-07-13 11:28] VITALS: BP 157/88; PULSE 82; RESP 18; TEMP 36.2; O2SAT 97; BMI 22.7
--- NOTE | 2022-07-13 11:39 | ED_ITS ---
HPI - Extremity Problem General Chief complaint: Extremity Problem,Nontraumatic Stated complaint: BLE Swelling/Cellulitis Time Seen by Provider: 07/13/22 11:31 Source: patient and EMS Mode of arrival: EMS Limitations: no limitations History of Present Illness HPI Narrative: Patient is a 51-year-old male who was brought in by EMS for evaluation of what was initially described as bilateral lower extremity swelling and cellulitis. He states that his legs have been swelling for the past several weeks if not month. He is not on any diuretics. He denies any specific trauma. He states that it occasionally gets to the point that it is up into his waist and actually encompasses his scrotum. He denies any shortness of breath or chest pain. Denies any redness. He states he does have prescriptions for ?medicines? of a prescribed by individuals over and [place] but he has been ?stuck? here in the local area and has been unable to fill his medications. He does not know what these medications are for. Related Data Previous Rx's Medication Instructions Recorded tamsulosin 0.4 mg capsule (Flomax) 0.4 mg PO DAILY #10 caps 06/27/22 tamsulosin 0.4 mg capsule (Flomax) 0.4 mg PO DAILY #10 caps 06/27/22 acetaminophen 325 mg capsule 650 mg PO Q4H PRN pain #30 caps 07/13/22 (Tylenol) furosemide 20 mg tablet (Lasix) 20 mg PO DAILY #14 tabs 07/13/22 Allergies Allergy/AdvReac Type Severity Reaction Status Date / Time haloperidol [From Haldol] AdvReac Verified 07/13/22 11:27 Review of Systems Constitutional Constitutional: Reports system reviewed and no additional complaints, except as documented Musculoskeletal Musculoskeletal: Reports system reviewed and no additional complaints, except as documented Integumentary/Breasts Skin/Breast: Reports system reviewed and no additional complaints, except as documented Neurologic Neurologic: Reports system reviewed and no additional complaints, except as documented Hematologic/Lymphatic On Anticoagulants: No Patient History Medical History Alcohol withdrawal Chronic pain syndrome Lung mass Spinal stenosis TBI (traumatic brain injury) Family History Mother Brain tumor Father Chronic alcohol use Hx of liver transplant Staphylococcal pneumonia Social History household members: none Smoking Status: Current some day smoker alcohol intake: current Smoking Status: Current some day smoker tobacco type: cigarettes alcohol intake frequency: 3 or more drinks per day Alcohol type: hard liquor Substance Use Type: marijuana Exam Initial Vital Signs Initial Vital Signs: Vital Signs Temperature 97.2 F L 07/13/22 11:28 Pulse Rate 82 07/13/22 11:28 Respiratory Rate 18 07/13/22 11:28 Blood Pressure 157/88 H 07/13/22 11:28 Pulse Oximetry 97 07/13/22 11:28 Oxygen Delivery Method Room Air 07/13/22 11:28 HENMT Head: normal to inspection and normocephalic Resp Effort & Inspection: normal respiratory effort Cardio Pulses: dorsalis pedis present bilaterally Skin General: no rashes or lesions noted Neuro General: patient alert and patient awake Speech: speech normal Gait: normal gait Sensory Exam: no sensory deficits noted Extrem Other: Patient does have bilateral lower extremity swelling that extends from his toes to his knees. Course Orders Ordered: ED Orders 07/13/22 11:39 EKG-12 Lead Stat 07/13/22 12:04 Basic Metabolic Panel Stat Complete Blood Count AUTO DIFF Stat NT-proBNP (BNP-Adult 18+) Stat Troponin & CK Cardiac Panel Stat Discontinued Medications Furosemide 60 mg/ Sodium (Chloride) 56 mls @ 112 mls/hr IV NOW ONE Stop: 07/13/22 11:39 Last Infusion: 07/13/22 12:47 Dose: 0 mls/hr Documented By: Admin: 07/13/22 12:13 Dose: 112 mls/hr Documented By: MICHAEL Vital Signs Vital signs: Vital Signs - 8 hr 07/13/22 11:28 Temperature 97.2 F L Pulse Rate 82 Respiratory Rate 18 Blood Pressure 157/88 H Pulse Oximetry 97 Oxygen Delivery Method Room Air MDM - Extremity (Nontraumatic) Lab Data 07/13/22 12:04 07/13/22 12:04 Labs: Lab Results 07/13/22 07/13/22 Range/Units 12:04 12:04 WBC 7.0 (4.5-11.0) X10^3/uL RBC 4.13 L (4.5-5.9) X10^6/uL Hgb 13.8 (13.5-17.5) g/dL Hct 42.0 (41-53) % MCV 101.7 H (80-100) fL MCH 33.5 (26-34) PG MCHC 33.0 (30-36) % RDW 20.0 H (11.6-14.8) % Plt Count 228 (150-400) X10^3/uL Neut % (Auto) Not Reportable Lymph % (Auto) Not Reportable Maverick % (Auto) Not Reportable Eos % (Auto) Not Reportable Baso % (Auto) Not Reportable Lymph # (Auto) Not Reportable Maverick # (Auto) Not Reportable Baso # (Auto) Not Reportable Sodium 140 (137-145) mmol/L Potassium 3.8 (3.4-5.1) mmol/L Chloride 104 (98-107) mmol/L Carbon Dioxide 29 (22-32) mmol/L BUN 18 (9-20) mg/dL Creatinine 0.64 L (0.66-1.25) mg/dL Estimated GFR > 60 (>60) mL/min BUN/Creatinine Ratio 28.1 H (6-22) Glucose 119 H (70-100) mg/dL Calcium 7.9 L (8.4-10.2) mg/dL Total Creatine Kinase 38 L (55-170) U/L CK-MB (CK-2) TNP CK-MB (CK-2) Rel Index TNP Troponin I < 0.012 (0.01-0.034) ng/mL NT-Pro-B Natriuret Pep 24 (<125) pg/mL ECG Data Attestation EKG: I personally reviewed and interpreted this ECG as follows: Interpretation: Sinus rhythm Ventricular rate is 73 Normal QRS Normal QTC No ST T wave changes First-degree AV block with IL interval 280 milliseconds MDM Narrative Medical decision making narrative: Patient does have bilateral lower extremity edema that goes from his toes to his knees. There is no redness over the area. No suspicion for trauma. No suspicion for cellulitis. The chest x-ray and EKG and BNP point against heart failure. Patient was given Lasix here in the emergency department and did diurese. No indication for admission to the hospital. Will send a prescription for diuretics to the pharmacy of his choice. He expressed understanding and agreement. Discharge Plan Departure Patient Disposition: Home Clinical Impression: Bilateral lower extremity edema Instructions: DI for Peripheral Edema -- Bilateral Activity Restrictions/Additional Instructions: A prescription for diuretics was sent to [facility] per your request. Please start taking them as directed. Is also important that you keep your legs elevated as much as possible. Prescriptions: New furosemide [Lasix] 20 mg tablet 20 mg PO DAILY Qty: 14 0RF acetaminophen [Tylenol] 325 mg capsule 650 mg PO Q4H PRN (Reason: pain) Qty: 30 0RF No Action tamsulosin [Flomax] 0.4 mg capsule 0.4 mg PO DAILY Qty: 10 0RF tamsulosin [Flomax] 0.4 mg capsule 0.4 mg PO DAILY Qty: 10 0RF Referrals: Santos Morgan MD [Non-Staff] - Stand Alone Forms: Patient Portal/API
[2022-07-13] MEDS: FUROSEMIDE 60 MG in SODIUM CHLORIDE 0.9% 50 ML 112 MG IV (12:13)
[2022-07-13 12:15] LABS: Hemoglobin 13.8 g/dL (13.5-17.5); Mean Corpuscular Hemoglobin 33.5 PG (26-34); Mean Corpuscular Volume 101.7 fL (80-100); Platelet Count 228 X10^3/uL (150-400); Red Blood Cell Count 4.13 X10^6/uL (4.5-5.9)
[2022-07-13 12:21] LABS: Add Manual Diff / Slide Review YES
[2022-07-13 12:25] LABS: BUN Creatinine Ratio 28.1 (6-22); Blood Urea Nitrogen 18 mg/dL (9-20); Calcium 7.9 mg/dL (8.4-10.2); Carbon Dioxide 29 mmol/L (22-32); Chloride 104 mmol/L (98-107); Creatine Kinase 38 U/L (55-170); Estimated Glomerular Filt Rate > 60 mL/min (>60); Glucose 119 mg/dL (70-100); HEMOLYSIS < 15 (0-50); Potassium 3.8 mmol/L (3.4-5.1); Sodium 140 mmol/L (137-145)
[2022-07-13 12:38] LABS: NT-proBNP (BNP-Adult 18+) 24 pg/mL (<125); Troponin I < 0.012 ng/mL (0.01-0.034)
[2022-07-13 12:59] LABS: Neutrophils Absolute Manual 3080 /uL (3000-5900); Total Cells Counted 100
[2022-07-13 13:06] LABS: Anisocytosis 1+; Macrocytosis 1+
[2022-07-13 13:07] LABS: Reactive Lymphocytes 2+
[2022-07-13 13:27] VITALS: BP 146/83; PULSE 84; O2SAT 97
== END 2022-07-13 13:55 | disposition home or self-care (01) ==
PROVIDERS: Emergency Provider Emergency Medicine
DX: R60.0 Localized edema (principal); R07.9 Chest pain, unspecified
CPT/HCPCS: 36415; 80048; 82550; 83880; 84484; 85007; 85025; 93005; 93010; 96365; 99284; J1940